=== PATIENT | male | born 1965 | race Caucasian/White ===

== ENCOUNTER 2022-06-16 11:00 | Inpatient (IN) | payer MEDICARE ==
[~2022-06-16] VITALS: Ht 185.5 cm; Wt 63.8 kg
[~2022-06-16 11:00] MED LIST: ACET325C7 PO; ACETAMINOPHEN 325 MG TABLET PO PRN; ALPRAZolam 0.25 MG (XANAX) TAB PO PRN; BISACODYL 10 MG SUPP (DULCOLAX) PR PRN; CALCIUM CARBONATE 500 MG (TUMS) TAB.CHEW PO PRN; DOCUSATE SODIUM 100 MG (COLACE) CAP PO PRN; FLEET ENEMA ADULT 1 EA BTL PR PRN; LACT1CAP39 PO; LACTULOSE SYRUP 10GM/15ML (ENULOSE) 30ML UDC PO PRN; LOPERAMIDE 2 MG (IMODIUM) TABLET PO PRN; MELATONIN 3 MG TABLET PO PRN; ONDANSETRON 4 MG (ZOFRAN) ORAL DISSOLVE TAB PO PRN; OXYB5TAB13 PO; TIZA-169 PO; [UNRECOGNIZED DRUG - CODE] IV; diphenhydrAMINE 25 MG TAB (BENADRYL) PO PRN; guaiFENesin/CODEINE (ROBITUSSIN AC) 10ML UDC PO PRN
[2022-06-16 11:30] VITALS: BP 110/60
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
[2022-06-16] MEDS ORDERED: ceFAZolin INJECTION 2,000 MG ONE (12:29)
[2022-06-16] MEDS ORDERED: NS (IVPB) 50 ML ONE (12:29)
--- NOTE | 2022-06-16 12:29 | ST Cognitive Linguistic Eval ---
Speech Evaluation-General Medical Diagnosis Debility Onset Date: Jun 07, 2022 Therapy Diagnosis Therapy Diagnosis: Intact (Baseline) Cognitive Skills Precautions Precautions: Fall, Pressure Ulcer Precautions/Isolations: Fall Prevention, Standard Precautions, Pressure Ulcer Referral Referring Physician: Dr. Brewster Reason for Referral: Evaluation/Treatment Medical History Reviewed History: Yes Social History Current Living Status: Significant Other Speech PLF-Current Status Prior Level of Function The patient denied prior or recent concerns with his speech, language, cognition, or swallowing. The patient stated "the infection" has resulted in decreased appetite, however, he does not experience s/s of suspected aspiration. Subjective The patient was seated upright in his wheelchair, awake and alert, upon entrance to his room by the clinician. The patient greeted the clinician appropriately and was agreeable to participation in the cognitive linguistic assessment. The patient's family member is present and remains for the evaluation. Language Eval: Auditory Comprehends Simple Yes/No Ques: Functional Indent/Objects Multiple [place]: Functional Follows 1-Step Commands: Functional Follows Complex Directions: Functional Follows General Conversations: Functional Language Eval: Verbal Language Completes Spontaneous Greeting: Functional Produces Auto, Serial Info: Functional Word Finding: Functional Requests Basic Needs: Functional States Basic Personal Info: Functional Expresses Complex Ideas: Functional Language Evaluation: Reading Follows Simple Written Direct: Functional Language Evaluation: Writing Writes to Simple Dictation: Functional Cognitive Patient Orientation The patient was independently oriented to self, location, month, day of the week, date, and year. Objective Cognitive Domain Attention: WNL Memory: WNL Problem Solving: Functional Executive Functions: WNL Visuospatial Skills: WNL Composite Severity Rating: WNL Clock Drawing Severity Rating: WNL Objective Formal/Standardized Tests [facility] Mental Status Exam (UMS) Results The patient displayed a result of +28/30 on the SLUMS correlating to a result of cognitive skills within normal limits. Oral Motor/Speech Production The patient does not display dysarthria or apraxia of speech. The patient is 100% intelligible in known and unknown contexts. Impression The patient demonstrated intact and baseline cognitive linguistic skills. Speech-Plan Treatment Plan Speech Therapy Treatment Plan: Discontinue ST Treatment Duration: Jun 16, 2022 Frequency: 1 time per week Estimated Hrs Per Day: .25 hour per day Rehab Potential: Good Pt/Family Agrees to Plan: Yes Safety Risks/Education Teaching Recipient: Patient, Family Teaching Methods: Discussion Response to Teaching: Verbalize Understanding Education Topics Provided: Results, Recommendations, Plan of Care Time Speech Therapy Time In: 12:10 Speech Therapy Time Out: 12:30 DATE: Jun 16, 2022 Total Billed Time: 20 Billed Treatment Time 1, ARIC RICKETTS [facility] Jun 16, 2022 12:29
[2022-06-16] MEDS ORDERED: NON-FORMULARY MEDICATION 1 EA EA (Acetaminophen (Tylenol) 650 MG) PO PRN (12:30)
[2022-06-16] MEDS ORDERED: CEFAZOLIN SODIUM IV SCH (12:30)
[2022-06-16] MEDS ORDERED: NON-FORMULARY MEDICATION 1 EA EA (Tizanidine HCl 2 MG) PO PRN (12:30)
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
[2022-06-16] MEDS ORDERED: ACETAMINOPHEN 325 MG TABLET PO PRN (13:00)
[2022-06-16] MEDS: OXYBUTYNIN (DITROPAN) 5 MG TAB PO SCH ×3 (13:41→21:52)
[2022-06-16] MEDS: DOCUSATE SODIUM 100 MG (COLACE) CAP PO SCH ×2 (13:41→21:57)
--- NOTE | 2022-06-16 14:01 | Physical Therapy Daily Note ---
PT Daily Note-Current Subjective Patient in pre tx, agrees to PT, has no complaints of pain at rest. Will be co-treating with OT due to poor patient mobility, strength, endurance, severe debility, coordinate UE and LE during activity, safety and reduce risk of falls and to shower. Pain Section J - Health Conditions 1. Rarely or not at all 2. Occasionally 3. Frequently 4. Almost constantly 8. Unable to answer Pain Effect on Sleep: 1 Pain Interference with Therapy: 1 Pain Interference w/Day-to-Day: 1 Appearance Patient in at sink post tx, has access to nurse call. Mental Status Patient Orientation: Normal For Age Attachments: [place] Catheter Transfers SCALE: Activities may be completed with or without assistive devices. 6-Avzaenapiu-kdlifry completes the activity by him/herself with no assistance from a helper. 5-Set-up or Clean-up Assistance-helper sets up or cleans up; patient completes activity. [place] assists only prior to or following the activity. 4-Supervision or Touching Assistance-helper provides verbal cues and/or touching/steadying and/or contact guard assistance as patient completes activity. Assistance may be provided throughout the activity or intermittently. 3-Partial/Moderate Assistance-helper does LESS THAN HALF the effort. [place] lifts, holds or supports trunk or limbs, but provides less than half the effort. 2-Substantial/Maximal Assistance-helper does MORE THAN HALF the effort. [place] lifts or holds trunk or limbs and provides more than half the effort. 7-Ukywucypb-dmnfkw does ALL the effort. Patient does none of the effort to complete the activity. Or, the assistance of 2 or more helpers is required for the patient to complete the activity. If activity was not attempted, code reason: 7-Patient Refused. 9-Not Applicable-not attempted and the patient did not perform the activity before the current illness, exacerbation or injury. 10-Not Attempted due to Environmental Limitations-(lack of equipment, weather restraints, etc.). 88-Not Attempted due to Medical Conditions or Safety Concerns. Sit to Stand (QC): 2 Chair/Cxr-re-Bxfzq Xfer(QC): 2 Toilet Transfer (QC): 2 Patient wheels to restroom, practice transfer to toilet with max assist and back to , then stand to lower and take off pants and transfer to shower bench (max assist), patient is able to slide off his underwear. Patient showers and dries off, transfers back to with max assist, partially put on underwear and pants and then stand with max assist and pants are pulled up. Treatments PT performed transfers, standing, positioning and safety during bathing and dressing, OT performed bathing, dressing, UE positioning and safety during activity. Assessment Current Status: Fair Progress improved arm strength, patient was able to perform a good chair pushup to adjust in seat PT Seo Team Lead Goals Skilled Nursing Goals PT Skilled Nursing Goals Time Frame: Jun 30, 2022 Roll Left & Right (QC): 6 Sit to Lying (QC): 6 Lying-Sitting on Side/Bed(QC): 6 Sit to Stand (QC): 4 (CGA) Chair/Gqy-lg-Cgozo Xfer(QC): 4 (CGA) Toilet Transfer (QC): 4 (CGA) Car Transfer (QC): 4 (CGA) Does the Patient Walk: No and Walking Goal NOT indicated Walk 10 feet (QC): 9 Walk 50ft with 2 Turns (QC): 9 Walk 150 ft (QC): 9 Walking 10ft on Uneven Surface: 9 1 Step (curb) (QC): 9 4 Steps (QC): 9 12 Steps (QC): 9 Picking up an Object (QC): 9 Wheel 50 feet with 2 turns (QC: 6 Wheel 150 feet: 6 PT Plan Problem List Problem List: Activity Tolerance, Functional Strength, Safety, Balance, Gait, Transfer, Bed Mobility, ROM Treatment/Plan Treatment Plan: Continue Plan of Care Treatment Plan: Bed Mobility, Education, Functional Activity Lizeth, Functional Strength, Group Therapy, Safety, Therapeutic Exercise, Transfers Treatment Duration: Jun 30, 2022 Frequency: At least 5 of 7 days/Wk (IRF) Estimated Hrs Per Day: 1.5 hours per day Patient and/or Family Agrees t: Yes Safety Risks/Education Patient Education: Transfer Techniques, Correct Positioning, Safety Issues Teaching Recipient: Patient Teaching Methods: Demonstration, Discussion Response to Teaching: Reinforcement Needed Time Time In: 1300 Time Out: 1400 DATE: Jun 16, 2022 Total Billed Treatment Time: 60 Total Billed Treatment 1 visit FA 60' EDGAR REYNOLDS PT Jun 16, 2022 14:01
--- NOTE | 2022-06-16 14:09 | Occupational Ther Daily Note ---
OT Current Status-Daily Note Subjective Pt alert, sitting in w/c. Family member present. Pt agrees to therapy. No c/o pain. OT/PT cotreat ([id number]), skills of 2 clinicians required due to poor patient mobility, strength, endurance, severe debility, coordinate UE and LE during activity, safety and reduce risk of falls and to shower. PT focusing on transfers, standing and dynamic balance while OT focusing on ADLs, functional mobility and dynamic balance. Mental Status/Objective Patient Orientation: Person, Place, Time, Situation Attachments: IV ADL-Treatment Pt agrees to shower. PT assists pt with toilet transfer/shower transfer and [place] assist to manage w/c for safety. Pt is able to complete w/c pushups and assist with modified sliding transfer though for safety assist needed until pt increases strength and activity tolerance. Sitting 100% of the time, pt able to complete shower using shower bench, grabbar and hand held shower set. Pt uses figure 4 method to don/doff lower body clothing and footwear. Pt doffed suresh thing by self and threaded underwear over feet though fatigued and assist given to thread pants over feet then PT stood pt and URBINA hiked pt's lower body clothing over hips. Assist to don footwear due to fatigue, pt doffed by self. Pt independent with oral care. Set up with eating. Pt has bowel routine every other day, will be completing at night due to length of time it takes to complete, over 60 min. After session, pt sitting at sink to shave in w/c. Nrsg aware of position. Call light available. All needs met. Therapy Code Descriptions/Definitions Functional Williams Measure: 0=Not Assessed/NA 4=Minimal Assistance 1=Total Assistance 5=Supervision or Setup 2=Maximal Assistance 6=Modified [place] 3=Moderate Assistance 7=Complete IndependenceSCALE: Activities may be completed with or without assistive devices. 8-Tcjcejtydf-grjyfit completes the activity by him/herself with no assistance from a helper. 5-Set-up or Clean-up Assistance-helper sets up or cleans up; patient completes activity. [place] assists only prior to or following the activity. 4-Supervision or Touching Assistance-helper provides verbal cues and/or touching/steadying and/or contact guard assistance as patient completes activity. Assistance may be provided throughout the activity or intermittently. 3-Partial/Moderate Assistance-helper does LESS THAN HALF the effort. [place] lifts, holds or supports trunk or limbs, but provides less than half the effort. 2-Substantial/Maximal Assistance-helper does MORE THAN HALF the effort. [place] lifts or holds trunk or limbs and provides more than half the effort. 0-Adickfpjw-wvqmtc does ALL the effort. Patient does none of the effort to complete the activity. Or, the assistance of 2 or more helpers is required for the patient to complete the activity. If activity was not attempted, code reason: 7-Patient Refused. 9-Not Applicable-not attempted and the patient did not perform the activity before the current illness, exacerbation or injury. 10-Not Attempted due to Environmental Limitations-(lack of equipment, weather restraints, etc.). 88-Not Attempted due to Medical Conditions or Safety Concerns. Eating (QC): 5 Oral Hygiene (QC): 6 Shower/Bathe Self (QC): 5 Upper Body Dressing (QC): 5 Lower Body Dressing (QC): 1 On/Off Footwear: 3 Toilet Transfer (QC): 1 OT Seed Cleaner Goals Shelter Goals Time Frame: Jul 10, 2022 Acute change in mental status: 0 Inattention: 0 Disorganized thinkin Altered level of consciousness: 0 Eating (QC): 6 Oral Hygiene (QC): 6 Toileting Hygiene (QC): 6 Shower/Bathe Self (QC): 6 Upper Body Dressing (QC): 6 Lower Body Dressing (QC): 6 On/Off Footwear (QC): 6 Additional Goals: 1-Demonstrate ADL Tasks, 2-Verbalize Understanding, 3- ImproveStrength/Lizeth 1=Demonstrate adherence to instructed precautions during ADL tasks. 2=Patient will verbalize/demonstrate understanding of assistive de vices/modifications for ADL. 3=Patient will improve strength/tolerance for activity to enable patient to perform ADL's. OT Education/Plan Problem List/Assessment Assessment: Decreased Activ Tolerance, Decreased Safety Aware, Decreased UE Strength, Impaired Coordination, Impaired Funct Balance, Impaired Self-Care Skills Discharge Recommendations Plan/Recommendations: Continue POC Treatment Plan/Plan of Care Patient would benefit from OT for education, treatment and training to promote independence in ADL's, mobility, safety and/or upper extremity function for ADL's. Plan of Care: ADL Retraining, Functional Mobility, Group Exercise/Act as Ind, UE Funct Exercise/Act Treatment Duration: Jul 10, 2022 Frequency: At least 5 of 7 days/Wk (IRF) Estimated Hrs Per Day: 1.5 hours per day Agreement: Yes Rehab Potential: Fair Time Start Time: 13:00 Stop Time: 14:00 DATE: Jun 16, 2022 Total Time Billed (hr/min): 60 Billed Treatment Time 1 visit-ADL 4 (60 min) MACKENZIE DOMINGUEZ Jun 16, 2022 14:09
--- NOTE | 2022-06-16 17:07 | Diagnostic Imaging Report ---
CLINICAL INDICATION: Evaluate PICC line placement. EXAM: Portable chest x-ray, upright view. COMPARISON: None. FINDINGS: A left PICC line is seen with the distal portion overlying the cavoatrial junction region. Lungs/pleura: Lungs are clear. There is no pneumothorax. There is no pleural effusion. Mediastinum: Unremarkable. Pulmonary vasculature: Unremarkable. Heart: Unremarkable. Bones/extrathoracic soft tissue: There are small degenerative spurs involving the thoracic spine. There is a compression deformity of the T7 and T9 vertebrae which is of unknown age.. IMPRESSION: 1: Left sided PICC line seen in position, as described above. 2: There is no radiographic evidence of an acute cardiopulmonary process. 3: There are compression deformities involving the T7 and T9 vertebrae of unknown age. Dictated by: Dictated on workstation # [id number]
[2022-06-16 19:35] VITALS: BP 113/62
[2022-06-16] MEDS ORDERED: NON-FORMULARY MEDICATION 1 EA EA (Lactobacillus Rhamnosus GG (Culturelle) 1 EACH) PO SCH (21:00)
[2022-06-16] MEDS: ceFAZolin INJECTION 2,000 MG in NS (IVPB) 50 ML IV SCH (21:51)
[2022-06-16] MEDS: LACTOBACILLUS ACIDOPHILUS (PROBIOTIC) CAPSULE PO SCH (21:52)
[2022-06-16] MEDS: SENNA W/DOCUSATE (SENOKOT S) TABLET PO SCH (21:57)
[2022-06-16] MEDS: polyethylene glycoL POWDER 17 GM (MIRALAX) PACK PO SCH (21:57)
[2022-06-17] MEDS: ceFAZolin INJECTION 2,000 MG in NS (IVPB) 50 ML IV SCH ×3 (06:00→21:52)
[2022-06-17 06:17] LABS: BASOPHILS # (AUTO) 0.1 10^3/uL (0.0-0.1); BASOPHILS % (AUTO) 1 % (0-10); EOSINOPHILS # (AUTO) 0.3 10^3/uL (0.0-0.3); MEAN CORPUSCULAR HGB CONC 33 g/dL (32-36)
[2022-06-17 06:20] LABS: EOSINOPHILS % (AUTO) 4 % (0-10); HEMATOCRIT 32 % (40-54); HEMOGLOBIN 10.5 g/dL (13.3-17.7); LYMPHOCYTES # (AUTO) 2.2 10^3/uL (1.0-4.0); LYMPHOCYTES % (AUTO) 37 % (12-44); MEAN CORPUSCULAR HEMOGLOBIN 28 pg (25-34); MEAN CORPUSCULAR VOLUME 84 fL (80-99); MEAN PLATELET VOLUME 9.8 fL (9.0-12.2); MONOCYTES # (AUTO) 0.5 10^3/uL (0.0-1.0); MONOCYTES % (AUTO) 9 % (0-12); NEUTROPHILS # (AUTO) 2.8 10^3/uL (1.8-7.8); NEUTROPHILS % (AUTO) 49 % (42-75); PLATELET COUNT 131 10^3/uL (130-400); WHITE BLOOD COUNT 5.8 10^3/uL (4.3-11.0)
[2022-06-17 06:51] LABS: ALBUMIN 3.2 GM/DL (3.2-4.5); BILIRUBIN,TOTAL 0.5 MG/DL (0.1-1.0); CALCIUM 8.7 MG/DL (8.5-10.1); CREATININE SERUM 0.68 MG/DL (0.60-1.30); POTASSIUM 4.2 MMOL/L (3.6-5.0); TOTAL PROTEIN 6.2 GM/DL (6.4-8.2)
[2022-06-17 07:46] VITALS: BP 138/78
[2022-06-17] MEDS: polyethylene glycoL POWDER 17 GM (MIRALAX) PACK PO SCH ×2 (08:25→21:00)
[2022-06-17] MEDS: LACTOBACILLUS ACIDOPHILUS (PROBIOTIC) CAPSULE PO SCH ×2 (08:25→21:52)
[2022-06-17] MEDS: DOCUSATE SODIUM 100 MG (COLACE) CAP PO SCH ×2 (08:25→21:00)
[2022-06-17] MEDS: OXYBUTYNIN (DITROPAN) 5 MG TAB PO SCH ×3 (08:26→21:52)
[2022-06-17] MEDS: SENNA W/DOCUSATE (SENOKOT S) TABLET PO SCH ×2 (08:26→21:00)
--- NOTE | 2022-06-17 08:29 | Occupational Ther Daily Note ---
OT Current Status-Daily Note Subjective Alert, lying in bed. Pt agrees to therapy. No c/o pain at this time. Mental Status/Objective Patient Orientation: Person, Place, Time, Situation ADL-Treatment Supine to EOB independent. Sitting EOB independent. Mod A for modified SPT from EOB to w/c. Assist to thread catheter and feet into lower body clothing then while pt completed chair pushup assist given to hike pants over hips. Pt completed oral care and grooming sitting at sink independently. Therapy Code Descriptions/Definitions Functional Cross Measure: 0=Not Assessed/NA 4=Minimal Assistance 1=Total Assistance 5=Supervision or Setup 2=Maximal Assistance 6=Modified [place] 3=Moderate Assistance 7=Complete IndependenceSCALE: Activities may be completed with or without assistive devices. 1-Xjnprtdpxc-rrcnvcm completes the activity by him/herself with no assistance from a helper. 5-Set-up or Clean-up Assistance-helper sets up or cleans up; patient completes activity. [place] assists only prior to or following the activity. 4-Supervision or Touching Assistance-helper provides verbal cues and/or touching/steadying and/or contact guard assistance as patient completes activity. Assistance may be provided throughout the activity or intermittently. 3-Partial/Moderate Assistance-helper does LESS THAN HALF the effort. [place] lifts, holds or supports trunk or limbs, but provides less than half the effort. 2-Substantial/Maximal Assistance-helper does MORE THAN HALF the effort. [place] lifts or holds trunk or limbs and provides more than half the effort. 4-Utbenohgw-cepghg does ALL the effort. Patient does none of the effort to complete the activity. Or, the assistance of 2 or more helpers is required for the patient to complete the activity. If activity was not attempted, code reason: 7-Patient Refused. 9-Not Applicable-not attempted and the patient did not perform the activity before the current illness, exacerbation or injury. 10-Not Attempted due to Environmental Limitations-(lack of equipment, weather restraints, etc.). 88-Not Attempted due to Medical Conditions or Safety Concerns. Eating (QC): 5 Oral Hygiene (QC): 6 Lower Body Dressing (QC): 2 Other Treatment Pt propels w/c independently. Arm bike completed for 8 min with lengthy recovery breaks throughout due to increased dizziness, no resistance. Pt completed dowel kathy exercises against gravity 2 exercises, biceps 30 reps, triceps 25 reps. Pt fatigued at end of treatment. After session, pt sitting in w/c in room with call light/phone in reach. All needs met. OT Advisor To Command In Combat Goals Advisor To Command In Combat Goals Time Frame: Jul 10, 2022 Acute change in mental status: 0 Inattention: 0 Disorganized thinkin Altered level of consciousness: 0 Eating (QC): 6 Oral Hygiene (QC): 6 Toileting Hygiene (QC): 6 Shower/Bathe Self (QC): 6 Upper Body Dressing (QC): 6 Lower Body Dressing (QC): 6 On/Off Footwear (QC): 6 Additional Goals: 1-Demonstrate ADL Tasks, 2-Verbalize Understanding, 3-Improv eStrength/Lizeth 1=Demonstrate adherence to instructed precautions during ADL tasks. 2=Patient will verbalize/demonstrate understanding of assistive devices/modifications for ADL. 3=Patient will improve strength/tolerance for activity to enable patient to p erform ADL's. OT Education/Plan Problem List/Assessment Assessment: Decreased Activ Tolerance, Decreased UE Strength, Impaired Self- Care Skills, Restricted Funct UE ROM Discharge Recommendations Plan/Recommendations: Continue POC Treatment Plan/Plan of Care Patient would benefit from OT for education, treatment and training to promote independence in ADL's, mobility, safety and/or upper extremity function for ADL's. Plan of Care: ADL Retraining, Functional Mobility, Group Exercise/Act as Ind, UE Funct Exercise/Act Treatment Duration: Jul 10, 2022 Frequency: At least 5 of 7 days/Wk (IRF) Estimated Hrs Per Day: 1.5 hours per day Agreement: Yes Rehab Potential: Fair Time Start Time: 07:30 Stop Time: 08:30 DATE: Jun 17, 2022 Total Time Billed (hr/min): 60 Billed Treatment Time 1 visit-ADL 2 (30 min) EX 2 (30 min) MACKENZIE DOMINGUEZ Jun 17, 2022 08:29
[2022-06-17] MEDS ORDERED: PATIENT MAY USE OWN MED,SINGLE MED PO SCH (09:15)
--- NOTE | 2022-06-17 09:28 | PM&R Progress Note ---
Subjective HPI/CC On Admission Date Seen by Provider: Jun 17, 2022 Time Seen by Provider: 09:15 Subjective/Events-last exam 06/17/2022: Doing well Improved in therapy already Likely short course here in ARU No pain reported BM regimen ordered as he does at home In out caths will be initiated after lambert ANGEL LUIS Review of Systems General: Fatigue, Malaise Objective Exam Vital Signs Vital Signs Date Time Temp Pulse Resp B/P (MAP) Pulse Ox O2 Delivery O2 Flow Rate FiO2 06/17/22 21:30 97 Room Air 06/17/22 20:25 36.9 101 18 135/76 (95) Capillary Refill : General Appearance: No Apparent Distress, WD/WN, Chronically ill, Thin HEENT: PERRL/EOMI, Normal ENT Inspection, Pharynx Normal Neck: Full Range of Motion, Normal Inspection, Non Tender, Supple, Carotid Bruit Respiratory: Chest Non Tender, Lungs Clear, Normal Breath Sounds, No Accessory Muscle Use, No Respiratory Distress Cardiovascular: Regular Rate, Rhythm, No Edema, No Gallop, No JVD, No Murmur, Normal Peripheral Pulses Gastrointestinal: Normal Bowel Sounds, No Organomegaly, No Pulsatile Mass, Non Tender, Soft Back: Normal Inspection, No CVA Tenderness, No Vertebral Tenderness Extremity: Normal Capillary Refill, Normal Inspection, Normal Range of Motion, Non Tender, No Calf Tenderness, No Pedal Edema Neurologic/Psychiatric: Alert, Oriented x3, Normal Mood/Affect, clipper machine II-XII Norm as Tested, Depressed Affect, Motor Weakness (bilateral lower extremities) Skin: Normal Color, Warm/Dry Lymphatic: No Adenopathy Results/Procedures Lab Laboratory Tests 06/17/22 06:00 Patient resulted labs reviewed. FIM Transfers Therapy Code Descriptions/Definitions Functional [place] Measure: 0=Not Assessed/NA 4=Minimal Assistance 1=Total Assistance 5=Supervision or Setup 2=Maximal Assistance 6=Modified [place] 3=Moderate Assistance 7=Complete IndependenceSCALE: Activities may be completed with or without assistive devices. 7-Tgkhveaoql-lccyfqb completes the activity by him/herself with no assistance from a helper. 5-Set-up or Clean-up Assistance-helper sets up or cleans up; patient completes activity. [place] assists only prior to or following the activity. 4-Supervision or Touching Assistance-helper provides verbal cues and/or touching/steadying and/or contact guard assistance as patient completes activity. Assistance may be provided throughout the activity or intermittently. 3-Partial/Moderate Assistance-helper does LESS THAN HALF the effort. [place] lifts, holds or supports trunk or limbs, but provides less than half the effort. 2-Substantial/Maximal Assistance-helper does MORE THAN HALF the effort. [place] lifts or holds trunk or limbs and provides more than half the effort. 5-Tsbyigthp-dbtsfl does ALL the effort. Patient does none of the effort to complete the activity. Or, the assistance of 2 or more helpers is required for the patient to complete the activity. If activity was not attempted, code reason: 7-Patient Refused. 9-Not Applicable-not attempted and the patient did not perform the activity before the current illness, exacerbation or injury. 10-Not Attempted due to Environmental Limitations-(lack of equipment, weather restraints, etc.). 88-Not Attempted due to Medical Conditions or Safety Concerns. Roll Left to Right (QC): 4 Sit to Lying (QC): 3 Sit to Stand (QC): 2 Chair/Don-da-Ofsxz Xfer(QC): 2 Car Transfer (QC): 2 Gait Training Does the Patient Walk?: No and Walking Goal NOT indicated Walk 10 feet (QC): 9 Walk 50 ft with 2 Turns(QC): 9 Walk 150 ft (QC): 9 Walking 10ft/uneven surface-QC: 9 Wheelchair Training Does the Pt Use a Wheelchair?: Yes Distance: 200'x2 Wheel 50 ft with 2 turns (QC): 6 Wheel 150 ft (QC): 6 Type of Wheelchair: Manual Stair Training 1 Step (curb) (QC): 9 4 Steps (QC): 9 12 Steps (QC): 9 Balance Picking up an Object (QC): 9 ADL-Treatment Eating (QC): 5 Oral Hygiene (QC): 6 Shower/Bathe Self (QC): 5 Upper Body Dressing (QC): 5 Lower Body Dressing (QC): 1 (due to fatigue) On/Off Footwear (QC): 3 Toileting Hygiene (QC): 2 Toilet Transfer (QC): 1 Assessment/Plan Assessment and Plan Assess & Plan/Chief Complaint Assessment: Debility from renal cell carcinoma chemotherapy treatment Acute endocarditis placed on Cefazolin1 grams IV Q8 hours for 6 weeks Remote hx of C3 spinal cord injury CKD Anemia Weight loss h/o decubitus ulcers Neurogenic bladder performs in out caths Plan: Pain control In/out caths Lab monitoring Cardiology consultation Lab monitoring 06/17/2022: Monitor closely Fall risk (1) Debility (2) Endocarditis (3) Renal cell carcinoma (4) Weight loss (5) C3 spinal cord injury MELI THOMAS DO Jun 17, 2022 09:28
--- NOTE | 2022-06-17 09:34 | Individualized Plan of Care ---
Individualized Plan of Care Rehab Nursing IPOC Order Admission Date Jun 16, 2022 at 11:00 Current Orders Orders Admission Order(Inpt,Obs,Sdc) (06/16/22 05:37) Vital Signs: Per Unit Policy ( 16 (06/16/22 05:37) Jesus Hopkins (06/16/22 05:37) Sequential Compression Device (06/16/22 05:37) Deputy Of Counter Intelligence-Inpt Rehab Con (06/16/22 05:37) Rehab Nursing Orders-Ipoc (06/16/22 05:37) Physical Therapy Rehab Orders (06/16/22 05:37) Occupational Therapy Rehab Ord (06/16/22 05:37) Speech Therapy Rehab Orders (06/16/22 05:37) Cbc With Automated Diff (06/17/22 06:00) Comprehensive Metabolic Panel (06/17/22 06:00) Precautions (Aru) (06/16/22 05:37) Weekly Weight WEEK (06/16/22 05:37) Rehab-Intensity Of Therapy (06/16/22 05:37) Initiate Admission Nursing Pro .admission (06/16/22 05:37) Alprazolam Tablet (Xanax Tablet) (06/16/22 05:45) Calcium Carbonate Chew Tablet (Antacid C (06/16/22 05:45) Diphenhydramine Tablet (Benadryl Tablet) (06/16/22 05:45) Docusate Sodium Capsule (Colace Capsule) (06/16/22 09:00) Docusate Sodium Capsule (Colace Capsule) (06/16/22 05:45) Bisacodyl Suppository (Dulcolax Supposit (06/16/22 05:45) Lactulose Oral Solution (Enulose Oral So (06/16/22 05:45) Na Phos/Na Biphos Enema (Fleet Enema Alexy (06/16/22 05:45) Guaifenesin/Codeine Syrup (Robitussin Ac (06/16/22 05:45) Loperamide Tablet (Imodium Tablet) (06/16/22 05:45) Melatonin Tablet (Melatonin Tablet) (06/16/22 05:45) Polyethylene Glycol Powder Pkt (Miralax (06/16/22 21:00) Ondansetron Oral Dissolve Tab (Zofran (06/16/22 05:45) Senna S Tablet (Senokot S Tablet) (06/16/22 21:00) Acetaminophen Tablet/Caplet (Tylenol T (06/16/22 05:45) General/Regular (06/16/22 Lunch) Admission Arrival Bed Request (06/16/22 11:55) Oxybutynin Tablet (Ditropan Tablet) (06/16/22 13:00) (Nf) Acetaminophen (Tylenol) (06/16/22 12:30) (Nf) Cefazolin Sod (Cefazolin Sodium) (06/16/22 12:30) (Nf) Lactobacillus Rhamnosus Gg (Culture (06/16/22 21:00) (Nf) Tizanidine Hcl (06/16/22 12:30) Patient Visit (06/16/22 ) Speech Sound Lang Comp (06/16/22 ) Treat. Speech/Lang/Voice (06/16/22 ) Ns (Ivpb) (Sodium Chloride 0.9% Ivpb Bag (06/16/22 12:29) Cefazolin Injection (Ancef Injection) (06/16/22 12:29) Tizanidine Tablet (Zanaflex Tablet) (06/16/22 13:00) Lactobacillus Acidophilus Cap (Acidophil (06/16/22 21:00) Acetaminophen Tablet/Caplet (Tylenol T (06/16/22 13:00) Cefazolin Injection (Ancef Injection) (06/16/22 22:00) Follow-Up Appointment (06/16/22 15:16) Nursing Communication (Order) (06/16/22 15:23) Chest 1 View, Ap/Pa Only (06/16/22 16:48) Consult Cardiology (06/17/22 06:48) Straight Cath (Urinary) (06/17/22 06:49) Patient Visit (06/16/22 ) Pt Eval Moderate Complexity (06/16/22 ) Functional Activities, Ea 15 (06/16/22 ) Patient May Use Own Med,Single (Patient (06/17/22 09:15) Enoxaparin Injection (Lovenox Injection) (06/17/22 09:30) Patient Visit (06/17/22 ) Wheelchair Mgmt/Propulsn 15min (06/17/22 ) Functional Activities, Ea 15 (06/17/22 ) Exercise Therap, Ea 15 Min (06/17/22 ) Rehab Nursing Orders: Ongoing Assess. of Function Status, Bladder Management, Bladder Scan, Bladder Training, Bowel Management, Bowel Training, Disease Management & Educaiton, DVT Prophylaxis, Fall Prevention, Fluid/Electrolyte/Nutrition Mgmt, Infection Prevention, Medication Management & Education, Management of Risks & Complications, Management of Skin Intergrity, Nutrition Management, Pain Management, Patient/Family Support, Safety Management Intensity of Therapy to be met Patient to be seen: Min.3h per day/5 of 7d PT IPOC Problem List: Activity Tolerance, Functional Strength, Safety, Balance, Gait, Transfer, Bed Mobility, ROM Treatment Plan: Continue Plan of Care Bed Mobility, Education, Functional Activity Lizeth, Functional Strength, Group Therapy, Safety, Therapeutic Exercise, Transfers Treatment Duration: Jun 30, 2022 Frequency: At least 5 of 7 days/Wk (IRF) Estimated Hrs Per Day: 1.5 hours per day OT IPOC Problems: Decreased Activ Tolerance, Decreased Safety Aware, Decreased UE Strength, Impaired Coordination, Impaired Funct Balance, Impaired Self-Care Skills OT Treatment, Training and Edu: Yes Plan of Care: ADL Retraining, Functional Mobility, Group Exercise/Act as Ind, UE Funct Exercise/Act Treatment Duration: Jul 10, 2022 Frequency: At least 5 of 7 days/Wk (IRF) Estimated Hrs Per Day: 1.[address] IPOC Speech Therapy Treatment Plan: Discontinue ST Treatment Duration: Jun 16, 2022 Frequency: 1 time per week Estimated Hrs Per Day: .25 hour per day Deputy Of Counter Intelligence/Case Mgmt Deputy Of Counter Intelligence/Case Managemen: Discharge Planning Dietitian/Typesetter Perforator Operator Dietitian/Typesetter Perforator Operator to monitor nutritional status and make changes and/or recommendations as needed and work with speech pathology on dietary upgrades as the occur. Physician IPOC Medical Issues being managed closely and that require the 24 hour availability of a physician: Recent diagnosis of endocarditis along with chronic paraplegia will require close monitoring while maintaining IV abx in order to prevent decompensation Medical Issues: Bowel/Bladder Function, DVT Prophylaxis, Falls Precautions, Fluid/Electrolyte/Nutrition Balance, Infection Protection, Pain Management Brief Synthesis of Preadmission Screen, Post-Admission Evaluation, and Therapy Evaluations: PT OT will focus on regaining strength with use of AD in order to return home to live independently while managing his chronic paralysis in wheelchair bound status Medical Prognosis: Good Anticipated Length of Stay: 7 days MELI THOMAS DO Jun 17, 2022 09:34
--- NOTE | 2022-06-17 09:48 | Physical Therapy Daily Note ---
PT Daily Note-Current Subjective Pt. agrees to Rx. States he notes progress but wants to be absolutely indep with TRFs etc. "I could walk with a FWW before all this started, like April or so" Pt. denies pain, shares some medical history as well as his personal living environment etc. "You have to let me try this the way I have always done this, if I cant then we'll modify" Pt. c/o he feels he may be getting skin break down on elbow, nursing alerted and particular dressing was applied bilat elbows to prevent shearing Pain Location: No Pain Reported Section J - Health Conditions 1. Rarely or not at all 2. Occasionally 3. Frequently 4. Almost constantly 8. Unable to answer Pain Effect on Sleep: 1 Pain Interference with Therapy: 1 Pain Interference w/Day-to-Day: 1 Mental Status Patient Orientation: Normal For Age Attachments: Camara Catheter Transfers SCALE: Activities may be completed with or without assistive devices. 3-Bkbjgfqzzz-yazouaa completes the activity by him/herself with no assistance from a helper. 5-Set-up or Clean-up Assistance-helper sets up or cleans up; patient completes activity. [place] assists only prior to or following the activity. 4-Supervision or Touching Assistance-helper provides verbal cues and/or touching/steadying and/or contact guard assistance as patient completes activity. Assistance may be provided throughout the activity or intermittently. 3-Partial/Moderate Assistance-helper does LESS THAN HALF the effort. [place] lifts, holds or supports trunk or limbs, but provides less than half the effort. 2-Substantial/Maximal Assistance-helper does MORE THAN HALF the effort. [place] lifts or holds trunk or limbs and provides more than half the effort. 6-Vpmcghawa-hocqvb does ALL the effort. Patient does none of the effort to complete the activity. Or, the assistance of 2 or more helpers is required for the patient to complete the activity. If activity was not attempted, code reason: 7-Patient Refused. 9-Not Applicable-not attempted and the patient did not perform the activity before the current illness, exacerbation or injury. 10-Not Attempted due to Environmental Limitations-(lack of equipment, weather restraints, etc.). 88-Not Attempted due to Medical Conditions or Safety Concerns. Roll Left & Right (QC): 6 Sit to Lying (QC): 6 Lying to Sitting/Side of Bed(Q: 6 Chair/Zfp-jx-Gdafz Xfer(QC): 3 TRFd w/c to mat Rx table in gym ( firm cushioned surface) SBA, but mat table to w/c one brake came disengaged ( pt. states this is an ongoing issue with his chair) and pt. needed mod assist to get secured up on mat to start over, brakes was secured again and min assist was given, no sld brd, pt. using UEs for bot TRFs one toward his left onto bed and one toward his right back to w/c. Wheelchair Training Does the Pt Use a Wheelchair?: Yes Wheel 50 ft with 2 turns (QC): 6 Wheel 150 ft (QC): 6 Type of Wheelchair: Manual to ramp for trials on 70 ft ramp pt. demonstrating good control descending 70 ft x 2 and good strength and control ascending 70 ft x 3. ascending causing fatigue and temporary dyspnea , recovering well Exercises Supine Ex: Ankle pumps, Quad Set, Rolling, Glut sets, Heel Slides, Short Arc Quads, Scooting, Straight leg raise, Hip abd/add Supine Reps: 20 all ex assisted as needed, HC stretches bilat x 5 with 20 s hold, Treatments w/c mob, ramps, TRFs w/c to mat and back, LE ex and stretching Assessment Current Status: Good Progress conts dependent for TRFs PT Custodial Goals Sharples Machine Operator Goals PT Custodial Goals Time Frame: Jun 30, 2022 Roll Left & Right (QC): 6 Sit to Lying (QC): 6 Lying-Sitting on Side/Bed(QC): 6 Sit to Stand (QC): 4 (CGA) Chair/Wmr-rq-Brxce Xfer(QC): 4 (CGA) Toilet Transfer (QC): 4 (CGA) Car Transfer (QC): 4 (CGA) Does the Patient Walk: No and Walking Goal NOT indicated Walk 10 feet (QC): 9 Walk 50ft with 2 Turns (QC): 9 Walk 150 ft (QC): 9 Walking 10ft on Uneven Surface: 9 1 Step (curb) (QC): 9 4 Steps (QC): 9 12 Steps (QC): 9 Picking up an Object (QC): 9 Wheel 50 feet with 2 turns (QC: 6 Wheel 150 feet: 6 PT Plan Treatment/Plan Treatment Plan: Continue Plan of Care Treatment Plan: Bed Mobility, Education, Functional Activity Lizeth, Functional Strength, Group Therapy, Safety, Therapeutic Exercise, Transfers Treatment Duration: Jun 30, 2022 Frequency: At least 5 of 7 days/Wk (IRF) Estimated Hrs Per Day: 1.5 hours per day Patient and/or Family Agrees t: Yes Safety Risks/Education Patient Education: Transfer Techniques, Correct Positioning, W/C Management, Disease Process, Safety Issues Teaching Recipient: Patient Teaching Methods: Demonstration, Discussion Response to Teaching: Verbalize Understanding, Return Demonstration, Reinforcement Needed Time Time In: 845 Time Out: 945 DATE: Jun 17, 2022 Total Billed Treatment Time: 60 Total Billed Treatment 1,WC27m,FA20m,EX13m ROJAS COLES ORTHOTIC ASSISTANT Jun 17, 2022 09:48
[2022-06-17] MEDS: ENOXAPARIN 40 MG/0.4 ML (LOVENOX) SYR SC SCH (10:10)
--- NOTE | 2022-06-17 12:02 | Occupational Ther Daily Note ---
OT Current Status-Daily Note Subjective Pt alert, sitting in w/c. Pt agrees to therapy. C/o fatigue from previous therapy sessions. Mental Status/Objective Patient Orientation: Person, Place, Time, Situation Attachments: IV ADL-Treatment Therapy Code Descriptions/Definitions Functional [place] Measure: 0=Not Assessed/NA 4=Minimal Assistance 1=Total Assistance 5=Supervision or Setup 2=Maximal Assistance 6=Modified [place] 3=Moderate Assistance 7=Complete IndependenceSCALE: Activities may be completed with or without assistive devices. 7-Ttekimcibv-uokixsh completes the activity by him/herself with no assistance from a helper. 5-Set-up or Clean-up Assistance-helper sets up or cleans up; patient completes activity. [place] assists only prior to or following the activity. 4-Supervision or Touching Assistance-helper provides verbal cues and/or touching/steadying and/or contact guard assistance as patient completes activity. Assistance may be provided throughout the activity or intermittently. 3-Partial/Moderate Assistance-helper does LESS THAN HALF the effort. [place] lifts, holds or supports trunk or limbs, but provides less than half the effort. 2-Substantial/Maximal Assistance-helper does MORE THAN HALF the effort. [place] lifts or holds trunk or limbs and provides more than half the effort. 8-Cjtqfjrvr-sxqonw does ALL the effort. Patient does none of the effort to complete the activity. Or, the assistance of 2 or more helpers is required for the patient to complete the activity. If activity was not attempted, code reason: 7-Patient Refused. 9-Not Applicable-not attempted and the patient did not perform the activity before the current illness, exacerbation or injury. 10-Not Attempted due to Environmental Limitations-(lack of equipment, weather restraints, etc.). 88-Not Attempted due to Medical Conditions or Safety Concerns. Other Treatment Pt completed arm pulleys for 5 min with multiple rest breaks throughout. Pt then completed dowel kathy exercises, gravity eliminated, by push/pull on parallel bars while leaning forward to completed forward flexion to increase core and B UE strength. ROM arc completed with each hand 1x for shldr abd/add. After session, pt propelled w/c back to room with visitor. All needs met. OT Senior Care Goals Senior Care Goals Time Frame: Jul 10, 2022 Acute change in mental status: 0 Inattention: 0 Disorganized thinkin Altered level of consciousness: 0 Eating (QC): 6 Oral Hygiene (QC): 6 Toileting Hygiene (QC): 6 Shower/Bathe Self (QC): 6 Upper Body Dressing (QC): 6 Lower Body Dressing (QC): 6 On/Off Footwear (QC): 6 Additional Goals: 1-Demonstrate ADL Tasks, 2-Verbalize Understanding, 3- ImproveStrength/Lizeth 1=Demonstrate adherence to instructed precautions during ADL tasks. 2=Patient will verbalize/demonstrate understanding of assistive devices/modifications for ADL. 3=Patient will improve strength/tolerance for activity to enable patient to perform ADL's. OT Education/Plan Problem List/Assessment Assessment: Decreased Activ Tolerance, Decreased UE Strength Discharge Recommendations Plan/Recommendations: Continue POC Treatment Plan/Plan of Care Patient would benefit from OT for education, treatment and training to promote independence in ADL's, mobility, safety and/or upper extremity function for ADL's. Plan of Care: ADL Retraining, Functional Mobility, Group Exercise/Act as Ind, UE Funct Exercise/Act Treatment Duration: Jul 10, 2022 Frequency: At least 5 of 7 days/Wk (IRF) Estimated Hrs Per Day: 1.5 hours per day Agreement: Yes Rehab Potential: Fair Time Start Time: 11:30 Stop Time: 12:00 DATE: Jun 17, 2022 Total Time Billed (hr/min): 30 Billed Treatment Time 1 visit-EX 2 (30 min) MACKENZIE DOMINGUEZ Jun 17, 2022 12:02
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
--- NOTE | 2022-06-17 13:31 | Physical Therapy Daily Note ---
PT Daily Note-Current Subjective Pt. agrees to Rx. States he feels even stronger this afternoon than he did this morning. Pt. wants to cotton inspector the // bars and then hopes to have suppository for BM afterwards. Pain Location: No Pain Reported Section J - Health Conditions 1. Rarely or not at all 2. Occasionally 3. Frequently 4. Almost constantly 8. Unable to answer Pain Effect on Sleep: 1 Pain Interference with Therapy: 1 Pain Interference w/Day-to-Day: 1 Mental Status Patient Orientation: Normal For Age Attachments: Camara Catheter Transfers SCALE: Activities may be completed with or without assistive devices. 4-Bfusibaodh-brlprzj completes the activity by him/herself with no assistance from a helper. 5-Set-up or Clean-up Assistance-helper sets up or cleans up; patient completes activity. [place] assists only prior to or following the activity. 4-Supervision or Touching Assistance-helper provides verbal cues and/or touching/steadying and/or contact guard assistance as patient completes activity. Assistance may be provided throughout the activity or intermittently. 3-Partial/Moderate Assistance-helper does LESS THAN HALF the effort. [place] lif ts, holds or supports trunk or limbs, but provides less than half the effort. 2-Substantial/Maximal Assistance-helper does MORE THAN HALF the effort. [place] lifts or holds trunk or limbs and provides more than half the effort. 1-Xjvhdkyyg-ynhlqt does ALL the effort. Patient does none of the effort to complete the activity. Or, the assistance of 2 or more helpers is required for the patient to complete the activity. If activity was not attempted, code reason: 7-Patient Refused. 9-Not Applicable-not attempted and the patient did not perform the activity before the current illness, exacerbation or injury. 10-Not Attempted due to Environmental Limitations-(lack of equipment, weather restraints, etc.). 88-Not Attempted due to Medical Conditions or Safety Concerns. Sit to Stand (QC): 4 sit to stands at // bars x 3 with min to CGA and pt. using/pulling up using bars bilat. pt. has his own trusted routine of positioning is feet and LEs and weight shifting which was successful with CGA to slight min x 3 trials. pt stood approx 3 mins each trial. Pt. gives full effort Wheelchair Training Does the Pt Use a Wheelchair?: Yes Type of Wheelchair: Manual 175 ft x 2 indep, at rather high speed, pt. cued for safety pt. states "keep up if you can" Exercises Seated Therapy Exercises: Sit to stand Standing Reps: 4 Treatments w/c mob, sit to stands in // bars with greater indep and duration of 3-4 mins per stance Assessment Current Status: Good Progress progressing each treatment, increased TRF indep and strength PT Ring Conductor Goals Ring Conductor Goals PT Ring Conductor Goals Time Frame: Jun 30, 2022 Roll Left & Right (QC): 6 Sit to Lying (QC): 6 Lying-Sitting on Side/Bed(QC): 6 Sit to Stand (QC): 4 (CGA) Chair/Ppl-vg-Osmmj Xfer(QC): 4 (CGA) Toilet Transfer (QC): 4 (CGA) Car Transfer (QC): 4 (CGA) Does the Patient Walk: No and Walking Goal NOT indicated Walk 10 feet (QC): 9 Walk 50ft with 2 Turns (QC): 9 Walk 150 ft (QC): 9 Walking 10ft on Uneven Surface: 9 1 Step (curb) (QC): 9 4 Steps (QC): 9 12 Steps (QC): 9 Picking up an Object (QC): 9 Wheel 50 feet with 2 turns (QC: 6 Wheel 150 feet: 6 PT Plan Treatment/Plan Treatment Plan: Continue Plan of Care Treatment Plan: Bed Mobility, Education, Functional Activity Lizeth, Functional Strength, Group Therapy, Safety, Therapeutic Exercise, Transfers Treatment Duration: Jun 30, 2022 Frequency: At least 5 of 7 days/Wk (IRF) Estimated Hrs Per Day: 1.5 hours per day Patient and/or Family Agrees t: Yes Safety Risks/Education Patient Education: Transfer Techniques, Correct Positioning, W/C Management, Safety Issues Teaching Recipient: Patient Teaching Methods: Demonstration, Discussion Response to Teaching: Verbalize Understanding, Return Demonstration, Reinforcement Needed Time Time In: 1300 Time Out: 1330 DATE: Jun 17, 2022 Total Billed Treatment Time: 30 Total Billed Treatment 1,FA30m ROJAS COLES COOK SHIP Jun 17, 2022 13:30
[2022-06-17 20:25] VITALS: BP 135/76
[2022-06-18] MEDS: ceFAZolin INJECTION 2,000 MG in NS (IVPB) 50 ML IV SCH ×3 (05:54→21:04)
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
[2022-06-18 07:58] VITALS: BP 136/76
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
[2022-06-18] MEDS: ENOXAPARIN 40 MG/0.4 ML (LOVENOX) SYR SC SCH (08:19)
[2022-06-18] MEDS: OXYBUTYNIN (DITROPAN) 5 MG TAB PO SCH ×3 (08:19→20:57)
[2022-06-18] MEDS: polyethylene glycoL POWDER 17 GM (MIRALAX) PACK PO SCH ×2 (08:19→21:29)
[2022-06-18] MEDS: LACTOBACILLUS ACIDOPHILUS (PROBIOTIC) CAPSULE PO SCH ×2 (08:19→20:57)
[2022-06-18] MEDS: SENNA W/DOCUSATE (SENOKOT S) TABLET PO SCH ×2 (08:19→21:29)
[2022-06-18] MEDS: DOCUSATE SODIUM 100 MG (COLACE) CAP PO SCH ×2 (08:19→21:29)
--- NOTE | 2022-06-18 09:16 | Occupational Ther Daily Note ---
OT Current Status-Daily Note Subjective Pt alert, sitting in w/c. Pt agrees to therapy. No c/o pain. Mental Status/Objective Patient Orientation: Person, Place, Time, Situation Attachments: IV ADL-Treatment Pt agrees to shower. Min A for shower transfers. Using grabbars, shower bench and hand held shower pt able to complete shower by self, assist only to cover IV. Independent with upper body dressing. Independent with doffing lower body clothing. Pt dons R sock by self then assist with L sock. Assist to thread Camara through underwear then is able to don by self. Assist to don pants. Pt completed grooming/oral care prior to OT session. Therapy Code Descriptions/Definitions Functional [place] Measure: 0=Not Assessed/NA 4=Minimal Assistance 1=Total Assistance 5=Supervision or Setup 2=Maximal Assistance 6=Modified [place] 3=Moderate Assistance 7=Complete IndependenceSCALE: Activities may be completed with or without assistive devices. 3-Daenbtlyxd-kjnsofg completes the activity by him/herself with no assistance from a helper. 5-Set-up or Clean-up Assistance-helper sets up or cleans up; patient completes activity. [place] assists only prior to or following the activity. 4-Supervision or Touching Assistance-helper provides verbal cues and/or touching/steadying and/or contact guard assistance as patient completes activity. Assistance may be provided throughout the activity or intermittently. 3-Partial/Moderate Assistance-helper does LESS THAN HALF the effort. [place] lifts, holds or supports trunk or limbs, but provides less than half the effort. 2-Substantial/Maximal Assistance-helper does MORE THAN HALF the effort. [place] lifts or holds trunk or limbs and provides more than half the effort. 8-Rxxgcvzvd-kffomb does ALL the effort. Patient does none of the effort to complete the activity. Or, the assistance of 2 or more helpers is required for the patient to complete the activity. If activity was not attempted, code reason: 7-Patient Refused. 9-Not Applicable-not attempted and the patient did not perform the activity before the current illness, exacerbation or injury. 10-Not Attempted due to Environmental Limitations-(lack of equipment, weather restraints, etc.). 88-Not Attempted due to Medical Conditions or Safety Concerns. Shower/Bathe Self (QC): 5 Upper Body Dressing (QC): 6 Lower Body Dressing (QC): 3 On/Off Footwear: 3 Other Treatment Pt completed B UE strengthening with dowel kathy and resistance bands to increase upper body strength and activity tolerance for daily functional tasks. Pt has demonstrated improvement already with strength and activity tolerance from yesterday's therapy sessions. 3 sets 10 reps of all exercises with recovery breaks. After session, pt sitting in w/c in room with call light phone in reach. All needs met in room. BIMS CAM CAM Mental Status Change/Baseline: 0 Inattention: 0 Disorganized thinkin Altered level of consciousness: 0 OT Short Term Goals Short Term Goals Time Frame: Jun 18, 2022 OT [facility] Goals Dog Hair Clipper Goals Time Frame: Jul 10, 2022 Acute change in mental status: 0 Inattention: 0 Disorganized thinkin Altered level of consciousness: 0 Eating (QC): 6 (met) Oral Hygiene (QC): 6 (met) Toileting Hygiene (QC): 6 (met) Shower/Bathe Self (QC): 6 (met) Upper Body Dressing (QC): 6 (met) Lower Body Dressing (QC): 6 (met) On/Off Footwear (QC): 6 (met) Additional Goals: 1-Demonstrate ADL Tasks, 2-Verbalize Understanding, 3- ImproveStrength/Lizeth 1=Demonstrate adherence to instructed precautions during ADL tasks. 2=Patient will verbalize/demonstrate understanding of assistive devices/modifications for ADL. 3=Patient will improve strength/tolerance for activity to enable patient to perform ADL's. OT Education/Plan Problem List/Assessment Assessment: Decreased Activ Tolerance, Decreased UE Strength, Impaired Self- Care Skills Discharge Recommendations Plan/Recommendations: Continue POC Treatment Plan/Plan of Care Patient would benefit from OT for education, treatment and training to promote independence in ADL's, mobility, safety and/or upper extremity function for ADL's. Plan of Care: ADL Retraining, Functional Mobility, Group Exercise/Act as Ind, UE Funct Exercise/Act Treatment Duration: Jul 10, 2022 Frequency: At least 5 of 7 days/Wk (IRF) Estimated Hrs Per Day: 1.5 hours per day Agreement: Yes Rehab Potential: Fair Time Start Time: 09:00 Stop Time: 10:00 DATE: Jun 18, 2022 Total Time Billed (hr/min): 60 Billed Treatment Time 1 visit-ADL 4 (60 min) MACKENZIE DOMINGUEZ Jun 18, 2022 09:16
--- NOTE | 2022-06-18 10:59 | Physical Therapy Daily Note ---
PT Daily Note-Current Subjective Pt. agrees to Rx, feels he is making regular progress . His goal is to get to standing indep and make a TRF from there. Pt. was able to insert suppository for BM indep last night Pain Location: No Pain Reported Section J - Health Conditions 1. Rarely or not at all 2. Occasionally 3. Frequently 4. Almost constantly 8. Unable to answer Pain Effect on Sleep: 1 Pain Interference with Therapy: 1 Pain Interference w/Day-to-Day: 1 Mental Status Patient Orientation: Normal For Age Attachments: Camara Catheter Transfers SCALE: Activities may be completed with or without assistive devices. 3-Xqxxgasgfm-uopcyek completes the activity by him/herself with no assistance from a helper. 5-Set-up or Clean-up Assistance-helper sets up or cleans up; patient completes activity. [place] assists only prior to or following the activity. 4-Supervision or Touching Assistance-helper provides verbal cues and/or touching/steadying and/or contact guard assistance as patient completes activity. Assistance may be provided throughout the activity or intermittently. 3-Partial/Moderate Assistance-helper does LESS THAN HALF the effort. [place] l ifts, holds or supports trunk or limbs, but provides less than half the effort. 2-Substantial/Maximal Assistance-helper does MORE THAN HALF the effort. [place] lifts or holds trunk or limbs and provides more than half the effort. 7-Yzzbdtdjf-ajmhuq does ALL the effort. Patient does none of the effort to complete the activity. Or, the assistance of 2 or more helpers is required for t he patient to complete the activity. If activity was not attempted, code reason: 7-Patient Refused. 9-Not Applicable-not attempted and the patient did not perform the activity before the current illness, exacerbation or injury. 10-Not Attempted due to Environmental Limitations-(lack of equipment, weather restraints, etc.). 88-Not Attempted due to Medical Conditions or Safety Concerns. Roll Left & Right (QC): 6 Sit to Lying (QC): 6 Lying to Sitting/Side of Bed(Q: 6 Sit to Stand (QC): 4 Chair/Bdv-ss-Lldgy Xfer(QC): 4 sit to stand at // bars with bars at lowest height simulating home situation x 6 trials CGA only. Gait Training for and back one step etc in // bars Exercises Supine Ex: Ankle pumps, Quad Set, Rolling, Glut sets, Heel Slides, Short Arc Quads, Scooting, Hip abd/add Supine Reps: 20 (stretches where approp and assisted etc) Seated Therapy Exercises: Sit to stand Seated Reps: 6 Treatments w/c mob indep, TRFs w/c to mat table and back with CGA to min, sit to stands in // bars at low setting x 6 trials SBA to CGA, supine bilat LE strengthening and stretching ie HC,HS Assessment Current Status: Good Progress meeting some goals every day, good progress in all phases of Rx PT [facility] Goals Insurance Clerk Goals PT [facility] Goals Time Frame: Jun 30, 2022 Roll Left & Right (QC): 6 Sit to Lying (QC): 6 Lying-Sitting on Side/Bed(QC): 6 Sit to Stand (QC): 4 (CGA) Chair/Dzw-sb-Hwojt Xfer(QC): 4 (CGA) Toilet Transfer (QC): 4 (CGA) Car Transfer (QC): 4 (CGA) Does the Patient Walk: No and Walking Goal NOT indicated Walk 10 feet (QC): 9 Walk 50ft with 2 Turns (QC): 9 Walk 150 ft (QC): 9 Walking 10ft on Uneven Surface: 9 1 Step (curb) (QC): 9 4 Steps (QC): 9 12 Steps (QC): 9 Picking up an Object (QC): 9 Wheel 50 feet with 2 turns (QC: 6 Wheel 150 feet: 6 PT Plan Treatment/Plan Treatment Plan: Continue Plan of Care Treatment Plan: Bed Mobility, Education, Functional Activity Lizeth, Functional Strength, Group Therapy, Safety, Therapeutic Exercise, Transfers Treatment Duration: Jun 30, 2022 Frequency: At least 5 of 7 days/Wk (IRF) Estimated Hrs Per Day: 1.5 hours per day Patient and/or Family Agrees t: Yes Safety Risks/Education Patient Education: Transfer Techniques, Correct Positioning, W/C Management, Disease Process, Safety Issues Teaching Recipient: Patient Response to Teaching: Reinforcement Needed Time Time In: 1000 Time Out: 1100 DATE: Jun 18, 2022 Total Billed Treatment Time: 60 Total Billed Treatment 1,EX35m,FA25m ROJAS COLES REFERRAL SPECIALIST Jun 18, 2022 10:59
--- NOTE | 2022-06-18 13:00 | Physical Therapy Daily Note ---
PT Daily Note-Current Subjective Agrees to Rx, "my legs are shot now" c/o fatigue Pain Location: No Pain Reported Section J - Health Conditions 1. Rarely or not at all 2. Occasionally 3. Frequently 4. Almost constantly 8. Unable to answer Pain Effect on Sleep: 1 Pain Interference with Therapy: 1 Pain Interference w/Day-to-Day: 1 Mental Status Patient Orientation: Normal For Age Attachments: Camara Catheter Transfers SCALE: Activities may be completed with or without assistive devices. 9-Gnnbhlxueg-htcmpyp completes the activity by him/herself with no assistance from a helper. 5-Set-up or Clean-up Assistance-helper sets up or cleans up; patient completes activity. [place] assists only prior to or following the activity. 4-Supervision or Touching Assistance-helper provides verbal cues and/or touching/steadying and/or contact guard assistance as patient completes activity. Assistance may be provided throughout the activity or intermittently. 3-Partial/Moderate Assistance-helper does LESS THAN HALF the effort. [place] lif ts, holds or supports trunk or limbs, but provides less than half the effort. 2-Substantial/Maximal Assistance-helper does MORE THAN HALF the effort. [place] lifts or holds trunk or limbs and provides more than half the effort. 4-Vnvduslve-ldhjto does ALL the effort. Patient does none of the effort to complete the activity. Or, the assistance of 2 or more helpers is required for the patient to complete the activity. If activity was not attempted, code reason: 7-Patient Refused. 9-Not Applicable-not attempted and the patient did not perform the activity before the current illness, exacerbation or injury. 10-Not Attempted due to Environmental Limitations-(lack of equipment, weather restraints, etc.). 88-Not Attempted due to Medical Conditions or Safety Concerns. Sit to Stand (QC): 4 Wheelchair Training Type of Wheelchair: Manual 1000ft indep turns and braking etc Exercises Seated Therapy Exercises: Sit to stand Treatments w/c mob, sit to stands at // bars SBA x 6 trials, stands for 1-2 mins attempting no hands on bars for balance Assessment Current Status: Good Progress PT Long-Term Goals Long-Term Goals PT Legislative Analyst Goals Time Frame: Jun 30, 2022 Roll Left & Right (QC): 6 Sit to Lying (QC): 6 Lying-Sitting on Side/Bed(QC): 6 Sit to Stand (QC): 4 (CGA) Chair/Xff-vw-Gfptw Xfer(QC): 4 (CGA) Toilet Transfer (QC): 4 (CGA) Car Transfer (QC): 4 (CGA) Does the Patient Walk: No and Walking Goal NOT indicated Walk 10 feet (QC): 9 Walk 50ft with 2 Turns (QC): 9 Walk 150 ft (QC): 9 Walking 10ft on Uneven Surface: 9 1 Step (curb) (QC): 9 4 Steps (QC): 9 12 Steps (QC): 9 Picking up an Object (QC): 9 Wheel 50 feet with 2 turns (QC: 6 Wheel 150 feet: 6 PT Plan Treatment/Plan Treatment Plan: Continue Plan of Care Treatment Plan: Bed Mobility, Education, Functional Activity Lizeth, Functional Strength, Group Therapy, Safety, Therapeutic Exercise, Transfers Treatment Duration: Jun 30, 2022 Frequency: At least 5 of 7 days/Wk (IRF) Estimated Hrs Per Day: 1.5 hours per day Patient and/or Family Agrees t: Yes Safety Risks/Education Patient Education: Transfer Techniques, W/C Management Time Time In: 1230 Time Out: 1300 DATE: Jun 18, 2022 Total Billed Treatment Time: 30 Total Billed Treatment 1,wc 10m,FA20m ROJAS COLES BLOCK PRESS OPERATOR Jun 18, 2022 13:00
--- NOTE | 2022-06-18 14:35 | Occupational Ther Daily Note ---
OT Current Status-Daily Note Subjective Pt very sleepy sitting in w/c. Pt very fatigued from therapy sessions today. Pt agrees to therapy. No c/o pain. Mental Status/Objective Patient Orientation: Person, Place, Time, Situation Attachments: IV ADL-Treatment Therapy Code Descriptions/Definitions Functional [place] Measure: 0=Not Assessed/NA 4=Minimal Assistance 1=Total Assistance 5=Supervision or Setup 2=Maximal Assistance 6=Modified [place] 3=Moderate Assistance 7=Complete IndependenceSCALE: Activities may be completed with or without assistive devices. 5-Jmojijstzn-pjzfpba completes the activity by him/herself with no assistance from a helper. 5-Set-up or Clean-up Assistance-helper sets up or cleans up; patient completes activity. [place] assists only prior to or following the activity. 4-Supervision or Touching Assistance-helper provides verbal cues and/or touching/steadying and/or contact guard assistance as patient completes activity. Assistance may be provided throughout the activity or intermittently. 3-Partial/Moderate Assistance-helper does LESS THAN HALF the effort. [place] lifts, holds or supports trunk or limbs, but provides less than half the effort. 2-Substantial/Maximal Assistance-helper does MORE THAN HALF the effort. [place] lifts or holds trunk or limbs and provides more than half the effort. 3-Etmgdmihw-rkzpwh does ALL the effort. Patient does none of the effort to complete the activity. Or, the assistance of 2 or more helpers is required for the patient to complete the activity. If activity was not attempted, code reason: 7-Patient Refused. 9-Not Applicable-not attempted and the patient did not perform the activity before the current illness, exacerbation or injury. 10-Not Attempted due to Environmental Limitations-(lack of equipment, weather restraints, etc.). 88-Not Attempted due to Medical Conditions or Safety Concerns. Other Treatment Pt positioned w/c to transfer into bed. Due to fatigue pt required min A for modified SPT from w/c to bed. Pt completed bed mobility independent. Pt made comfortable in bed. Call light/phone in reach. All needs met in room. OT Short Term Goals Short Term Goals Time Frame: Jun 18, 2022 OT [facility] Goals [facility] Goals Time Frame: Jul 10, 2022 Acute change in mental status: 0 Inattention: 0 Disorganized thinkin Altered level of consciousness: 0 Eating (QC): 6 (met) Oral Hygiene (QC): 6 (met) Toileting Hygiene (QC): 6 (met) Shower/Bathe Self (QC): 6 (met) Upper Body Dressing (QC): 6 (met) Lower Body Dressing (QC): 6 (met) On/Off Footwear (QC): 6 (met) Additional Goals: 1-Demonstrate ADL Tasks, 2-Verbalize Understanding, 3- ImproveStrength/Lizeth 1=Demonstrate adherence to instructed precautions during ADL tasks. 2=Patient will verbalize/demonstrate understanding of assistive devices/modifications for ADL. 3=Patient will improve strength/tolerance for activity to enable patient to perform ADL's. OT Education/Plan Problem List/Assessment Assessment: Decreased Activ Tolerance, Decreased UE Strength Discharge Recommendations Plan/Recommendations: Continue POC Treatment Plan/Plan of Care Patient would benefit from OT for education, treatment and training to promote independence in ADL's, mobility, safety and/or upper extremity function for ADL's. Plan of Care: ADL Retraining, Functional Mobility, Group Exercise/Act as Ind, UE Funct Exercise/Act Treatment Duration: Jul 10, 2022 Frequency: At least 5 of 7 days/Wk (IRF) Estimated Hrs Per Day: 1.5 hours per day Agreement: Yes Rehab Potential: Fair Time Start Time: 14:00 Stop Time: 14:30 DATE: Jun 18, 2022 Total Time Billed (hr/min): 30 Billed Treatment Time 1 visit-FA 2 (30 min) MACKENZIE DOMINGUEZ Jun 18, 2022 14:35
[2022-06-18 19:09] VITALS: BP 131/72
[2022-06-19] MEDS: ceFAZolin INJECTION 2,000 MG in NS (IVPB) 50 ML IV SCH ×3 (05:53→21:23)
--- NOTE | 2022-06-19 07:05 | PM&R Progress Note ---
Subjective HPI/CC On Admission Date Seen by Provider: Jun 19, 2022 Time Seen by Provider: 12:00 Subjective/Events-last exam 06/19/2022: Doing well Working with PT Increasing strength Condom catheter will be brought from home to use 06/18/2022: Doing very well No pain reported BM regimen ordered IV abx maintained Working hard in therapy 06/17/2022: Doing well Improved in therapy already Likely short course here in ARU No pain reported BM regimen ordered as he does at home In out caths will be initiated after lambert ANGEL LUIS Review of Systems General: Fatigue, Malaise Objective Exam Vital Signs Vital Signs Date Time Temp Pulse Resp B/P (MAP) Pulse Ox O2 Delivery O2 Flow Rate FiO2 06/19/22 08:10 Room Air 06/19/22 08:00 36.3 82 16 134/81 (98) 97 Capillary Refill : General Appearance: No Apparent Distress, WD/WN, Chronically ill, Thin HEENT: PERRL/EOMI, Normal ENT Inspection, Pharynx Normal Neck: Full Range of Motion, Normal Inspection, Non Tender, Supple, Carotid Bruit Respiratory: Chest Non Tender, Lungs Clear, Normal Breath Sounds, No Accessory Muscle Use, No Respiratory Distress Cardiovascular: Regular Rate, Rhythm, No Edema, No Gallop, No JVD, No Murmur, Normal Peripheral Pulses Gastrointestinal: Normal Bowel Sounds, No Organomegaly, No Pulsatile Mass, Non Tender, Soft Back: Normal Inspection, No CVA Tenderness, No Vertebral Tenderness Extremity: Normal Capillary Refill, Normal Inspection, Normal Range of Motion, Non Tender, No Calf Tenderness, No Pedal Edema Neurologic/Psychiatric: Alert, Oriented x3, Normal Mood/Affect, medical lead II-XII Norm as Tested, Depressed Affect, Motor Weakness (bilateral lower extremities) Skin: Normal Color, Warm/Dry Lymphatic: No Adenopathy Results/Procedures Lab Patient resulted labs reviewed. FIM Transfers Therapy Code Descriptions/Definitions Functional [place] Measure: 0=Not Assessed/NA 4=Minimal Assistance 1=Total Assistance 5=Supervision or Setup 2=Maximal Assistance 6=Modified [place] 3=Moderate Assistance 7=Complete IndependenceSCALE: Activities may be completed with or without assistive devices. 4-Kajgaytsui-nhidzyh completes the activity by him/herself with no assistance from a helper. 5-Set-up or Clean-up Assistance-helper sets up or cleans up; patient completes activity. [place] assists only prior to or following the activity. 4-Supervision or Touching Assistance-helper provides verbal cues and/or touching/steadying and/or contact guard assistance as patient completes activity. Assistance may be provided throughout the activity or intermittently. 3-Partial/Moderate Assistance-helper does LESS THAN HALF the effort. [place] lifts, holds or supports trunk or limbs, but provides less than half the effort. 2-Substantial/Maximal Assistance-helper does MORE THAN HALF the effort. [place] lifts or holds trunk or limbs and provides more than half the effort. 5-Tdwccmcrz-opqipe does ALL the effort. Patient does none of the effort to complete the activity. Or, the assistance of 2 or more helpers is required for the patient to complete the activity. If activity was not attempted, code reason: 7-Patient Refused. 9-Not Applicable-not attempted and the patient did not perform the activity before the current illness, exacerbation or injury. 10-Not Attempted due to Environmental Limitations-(lack of equipment, weather restraints, etc.). 88-Not Attempted due to Medical Conditions or Safety Concerns. Roll Left to Right (QC): 6 Sit to Lying (QC): 6 Sit to Stand (QC): 4 Chair/Zem-ae-Ylhfv Xfer(QC): 4 Car Transfer (QC): 2 Gait Training Does the Patient Walk?: No and Walking Goal NOT indicated Walk 10 feet (QC): 9 Walk 50 ft with 2 Turns(QC): 9 Walk 150 ft (QC): 9 Walking 10ft/uneven surface-QC: 9 Wheelchair Training Does the Pt Use a Wheelchair?: Yes Distance: 200'x2 Wheel 50 ft with 2 turns (QC): 6 Wheel 150 ft (QC): 6 Type of Wheelchair: Manual Stair Training 1 Step (curb) (QC): 9 4 Steps (QC): 9 12 Steps (QC): 9 Balance Picking up an Object (QC): 9 ADL-Treatment Eating (QC): 5 Oral Hygiene (QC): 6 Shower/Bathe Self (QC): 5 Upper Body Dressing (QC): 6 Lower Body Dressing (QC): 3 On/Off Footwear (QC): 3 Toileting Hygiene (QC): 2 Toilet Transfer (QC): 1 Assessment/Plan Assessment and Plan Assess & Plan/Chief Complaint Assessment: Debility from renal cell carcinoma chemotherapy treatment Acute endocarditis placed on Cefazolin1 grams IV Q8 hours for 6 weeks Remote hx of C3 spinal cord injury CKD Anemia Weight loss h/o decubitus ulcers Neurogenic bladder performs in out caths Plan: Pain control In/out caths Lab monitoring Cardiology consultation Lab monitoring 06/17/2022: Monitor closely Fall risk 06/18/2022: Refuses to DC Lambert Monitor closely 06/19/2022: Monitor closely Lambert DC once condom catheter brought from home (1) Debility (2) Endocarditis (3) Renal cell carcinoma (4) Weight loss (5) C3 spinal cord injury MELI THOMAS DO Jun 19, 2022 07:05
[2022-06-19] MEDS: OXYBUTYNIN (DITROPAN) 5 MG TAB PO SCH ×3 (07:37→19:52)
[2022-06-19] MEDS: LACTOBACILLUS ACIDOPHILUS (PROBIOTIC) CAPSULE PO SCH ×2 (07:37→19:52)
[2022-06-19 08:00] VITALS: BP 134/81
[2022-06-19] MEDS: polyethylene glycoL POWDER 17 GM (MIRALAX) PACK PO SCH ×2 (09:09→19:25)
[2022-06-19] MEDS: SENNA W/DOCUSATE (SENOKOT S) TABLET PO SCH ×2 (09:09→19:25)
[2022-06-19] MEDS: DOCUSATE SODIUM 100 MG (COLACE) CAP PO SCH ×2 (09:09→19:25)
[2022-06-19] MEDS: ENOXAPARIN 40 MG/0.4 ML (LOVENOX) SYR SC SCH (09:10)
--- NOTE | 2022-06-19 09:34 | Physical Therapy Daily Note ---
PT Daily Note-Current Subjective Pt. agrees to Rx, states he did not sleep well last night and relates this to how hard he worked his legs yesterday in therapy. Pt agrees to stretching and gentle ex, sld brd TRFs and Nustep attempt Pain Location: No Pain Reported Section J - Health Conditions 1. Rarely or not at all 2. Occasionally 3. Frequently 4. Almost constantly 8. Unable to answer Pain Effect on Sleep: 1 Pain Interference with Therapy: 1 Pain Interference w/Day-to-Day: 1 Mental Status Patient Orientation: Normal For Age Attachments: Camara Catheter Transfers SCALE: Activities may be completed with or without assistive devices. 4-Fptjqmewrn-leehuoe completes the activity by him/herself with no assistance from a helper. 5-Set-up or Clean-up Assistance-helper sets up or cleans up; patient completes activity. [place] assists only prior to or following the activity. 4-Supervision or Touching Assistance-helper provides verbal cues and/or touching/steadying and/or contact guard assistance as patient completes activity. Assistance may be provided throughout the activity or intermittently. 3-Partial/Moderate Assistance-helper does LESS THAN HALF the effort. [place] lifts, holds or supports trunk or limbs, but provides less than half the effort. 2-Substantial/Maximal Assistance-helper does MORE THAN HALF the effort. [place] lifts or holds trunk or limbs and provides more than half the effort. 6-Fjiktueva-owakbu does ALL the effort. Patient does none of the effort to complete the activity. Or, the assistance of 2 or more helpers is required for the patient to complete the activity. If activity was not attempted, code reason: 7-Patient Refused. 9-Not Applicable-not attempted and the patient did not perform the activity before the current illness, exacerbation or injury. 10-Not Attempted due to Environmental Limitations-(lack of equipment, weather restraints, etc.). 88-Not Attempted due to Medical Conditions or Safety Concerns. Roll Left & Right (QC): 6 Sit to Lying (QC): 6 Lying to Sitting/Side of Bed(Q: 6 Chair/[place]-io-Fxmfc Xfer(QC): 4 sld brd w/c to therapy mat, and back, sld brd w/c to Nustep and back all with min assist, pt gaining indep in placing brd, Wheelchair Training Type of Wheelchair: Manual indep about room and to gym ad back Exercises Supine Ex: Ankle pumps, Rolling, Glut sets, Heel Slides, Short Arc Quads, Scooting, Straight leg raise, Hip abd/add Supine Reps: 20 prone stretches for quads, active hamstr curls on right, hip flexor stretches as well , in sup A/AAROM and gentle HC stretches etc 5 x 20 s NuStep Minutes: 8 NuStep Workload: 4 Treatments as above, ex and stretching, nustep, sld brd TRFskills, no standing in // bars per pt request Assessment Current Status: Good Progress gives full effort, guides therapist in his desired goals as well as what he feels he can accomplish each Rx PT [facility] Goals 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 PT [facility] Goals Time Frame: Jun 30, 2022 Roll Left & Right (QC): 6 Sit to Lying (QC): 6 Lying-Sitting on Side/Bed(QC): 6 Sit to Stand (QC): 4 (CGA) Chair/Exy-ze-Kjgxf Xfer(QC): 4 (CGA) Toilet Transfer (QC): 4 (CGA) Car Transfer (QC): 4 (CGA) Does the Patient Walk: No and Walking Goal NOT indicated Walk 10 feet (QC): 9 Walk 50ft with 2 Turns (QC): 9 Walk 150 ft (QC): 9 Walking 10ft on Uneven Surface: 9 1 Step (curb) (QC): 9 4 Steps (QC): 9 12 Steps (QC): 9 Picking up an Object (QC): 9 Wheel 50 feet with 2 turns (QC: 6 Wheel 150 feet: 6 PT Plan Treatment/Plan Treatment Plan: Continue Plan of Care Treatment Plan: Bed Mobility, Education, Functional Activity Lizeth, Functional Strength, Group Therapy, Safety, Therapeutic Exercise, Transfers Treatment Duration: Jun 30, 2022 Frequency: At least 5 of 7 days/Wk (IRF) Estimated Hrs Per Day: 1.5 hours per day Patient and/or Family Agrees t: Yes Safety Risks/Education Patient Education: Transfer Techniques, Reviewed Precautions, Correct Positioning, Disease Process, Safety Issues Teaching Recipient: Patient Teaching Methods: Demonstration, Discussion Response to Teaching: Verbalize Understanding, Return Demonstration, Reinforcement Needed Time Time In: 830 Time Out: 930 DATE: Jun 19, 2022 Total Billed Treatment Time: 60 Total Billed Treatment 1,EX37m,FA23 ROJAS COLES PORTABLE POWER TOOL REPAIRER Jun 19, 2022 09:34
--- NOTE | 2022-06-19 11:59 | Occupational Ther Daily Note ---
OT Current Status-Daily Note Subjective Pt alert, sitting in w/c. Pt very fatigued from yesterday therapy sessions and not sleeping well last night. Agrees to therapy. Mental Status/Objective Patient Orientation: Person, Place, Time, Situation Attachments: Camara Catheter, IV ADL-Treatment Therapy Code Descriptions/Definitions Functional [place] Measure: 0=Not Assessed/NA 4=Minimal Assistance 1=Total Assistance 5=Supervision or Setup 2=Maximal Assistance 6=Modified [place] 3=Moderate Assistance 7=Complete IndependenceSCALE: Activities may be completed with or without assistive devices. 6-Swcieudxvy-cajslki completes the activity by him/herself with no assistance from a helper. 5-Set-up or Clean-up Assistance-helper sets up or cleans up; patient completes activity. [place] assists only prior to or following the activity. 4-Supervision or Touching Assistance-helper provides verbal cues and/or touching/steadying and/or contact guard assistance as patient completes activity. Assistance may be provided throughout the activity or intermittently. 3-Partial/Moderate Assistance-helper does LESS THAN HALF the effort. [place] lifts, holds or supports trunk or limbs, but provides less than half the effort. 2-Substantial/Maximal Assistance-helper does MORE THAN HALF the effort. [place] lifts or holds trunk or limbs and provides more than half the effort. 8-Mlrjqvcey-dcghaa does ALL the effort. Patient does none of the effort to com plete the activity. Or, the assistance of 2 or more helpers is required for the patient to complete the activity. If activity was not attempted, code reason: 7-Patient Refused. 9-Not Applicable-not attempted and the patient did not perform the activity before the current illness, exacerbation or injury. 10-Not Attempted due to Environmental Limitations-(lack of equipment, weather restraints, etc.). 88-Not Attempted due to Medical Conditions or Safety Concerns. Other Treatment Problem solving how to transfer on/off toilet using sliding board or modified SPT. Sliding board to toilet is not safe due to height difference of toilet to w/c. Pt able to transfer onto toilet with CGA or less assistance then max A to transfer back up to w/c due to height difference. Pt propelled to therapy gym. Completed arm bike with minimal resistance forward/backward rotation 3 min each, only 1 recovery break. Pt then completed arm/shldr pulleys for 2 min. After therapy, pt sitting in w/c in room with call light/phone in reach. All needs met in room. OT Short Term Goals Short Term Goals Time Frame: Jun 18, 2022 OT [place] [facility] [place] Goals [facility] Goals Time Frame: Jul 10, 2022 Acute change in mental status: 0 Inattention: 0 Disorganized thinkin Altered level of consciousness: 0 Eating (QC): 6 (met) Oral Hygiene (QC): 6 (met) Toileting Hygiene (QC): 6 (met) Shower/Bathe Self (QC): 6 (met) Upper Body Dressing (QC): 6 (met) Lower Body Dressing (QC): 6 (met) On/Off Footwear (QC): 6 (met) Additional Goals: 1-Demonstrate ADL Tasks, 2-Verbalize Understanding, 3- ImproveStrength/Lizeth 1=Demonstrate adherence to instructed precautions during ADL tasks. 2=Patient will verbalize/demonstrate understanding of assistive devices/modifications for ADL. 3=Patient will improve strength/tolerance for activity to enable patient to perform ADL's. OT Education/Plan Problem List/Assessment Assessment: Decreased Activ Tolerance, Decreased UE Strength, Impaired Self- Care Skills Discharge Recommendations Plan/Recommendations: Continue POC Treatment Plan/Plan of Care Patient would benefit from OT for education, treatment and training to promote independence in ADL's, mobility, safety and/or upper extremity function for ADL's. Plan of Care: ADL Retraining, Functional Mobility, Group Exercise/Act as Ind, UE Funct Exercise/Act Treatment Duration: Jul 10, 2022 Frequency: At least 5 of 7 days/Wk (IRF) Estimated Hrs Per Day: 1.5 hours per day Agreement: Yes Rehab Potential: Fair Time Start Time: 11:00 Stop Time: 12:00 DATE: Jun 19, 2022 Total Time Billed (hr/min): 60 Billed Treatment Time 1 visit-EX 2 (30 min) FA 2 (30 min) MACKENZIE DOMINGUEZ Jun 19, 2022 11:59
--- NOTE | 2022-06-19 13:23 | Physical Therapy Daily Note ---
PT Daily Note-Current Subjective Patient in WC at bedside pre tx, agrees to PT, has no complaints of pain. Pain Section J - Health Conditions 1. Rarely or not at all 2. Occasionally 3. Frequently 4. Almost constantly 8. Unable to answer Pain Effect on Sleep: 1 Pain Interference with Therapy: 1 Pain Interference w/Day-to-Day: 1 Appearance Patient in WC at bedside post tx with nurse call, phone, tray, all needs met. Mental Status Patient Orientation: Normal For Age Transfers SCALE: Activities may be completed with or without assistive devices. 1-Utdyxhfyxt-bqwajoz completes the activity by him/herself with no assistance from a helper. 5-Set-up or Clean-up Assistance-helper sets up or cleans up; patient completes activity. [place] assists only prior to or following the activity. 4-Supervision or Touching Assistance-helper provides verbal cues and/or touching/steadying and/or contact guard assistance as patient completes activ ity. Assistance may be provided throughout the activity or intermittently. 3-Partial/Moderate Assistance-helper does LESS THAN HALF the effort. [place] lifts, holds or supports trunk or limbs, but provides less than half the effort. 2-Substantial/Maximal Assistance-helper does MORE THAN HALF the effort. [place] lifts or holds trunk or limbs and provides more than half the effort. 3-Qnnivcqts-zdpxra does ALL the effort. Patient does none of the effort to complete the activity. Or, the assistance of 2 or more helpers is required for the patient to complete the activity. If activity was not attempted, code reason: 7-Patient Refused. 9-Not Applicable-not attempted and the patient did not perform the activity before the current illness, exacerbation or injury. 10-Not Attempted due to Environmental Limitations-(lack of equipment, weather restraints, etc.). 88-Not Attempted due to Medical Conditions or Safety Concerns. Roll Left & Right (QC): 6 Sit to Lying (QC): 4 Lying to Sitting/Side of Bed(Q: 4 Chair/Mva-ip-Jqsag Xfer(QC): 4 Patient wheeled down to the therapy gym and performed a transfer to therapy table and back with CGA Exercises Supine BLE stretching (hamstring and glutes), manually resisted leg press x10 on the right side x4 on the left side, sit to motor builder winder parallel bars x10 (no assist) Treatments stretching, strengthening Assessment Current Status: Fair Progress improving sit to stand PT [employer] Assembler Goals Half-Way Goals PT [employer] Assembler Goals Time Frame: Jun 30, 2022 Roll Left & Right (QC): 6 Sit to Lying (QC): 6 Lying-Sitting on Side/Bed(QC): 6 Sit to Stand (QC): 4 (CGA) Chair/Kbj-hp-Cdgcj Xfer(QC): 4 (CGA) Toilet Transfer (QC): 4 (CGA) Car Transfer (QC): 4 (CGA) Does the Patient Walk: No and Walking Goal NOT indicated Walk 10 feet (QC): 9 Walk 50ft with 2 Turns (QC): 9 Walk 150 ft (QC): 9 Walking 10ft on Uneven Surface: 9 1 Step (curb) (QC): 9 4 Steps (QC): 9 12 Steps (QC): 9 Picking up an Object (QC): 9 Wheel 50 feet with 2 turns (QC: 6 Wheel 150 feet: 6 PT Plan Problem List Problem List: Activity Tolerance, Functional Strength, Safety, Balance, Gait, Transfer, Bed Mobility, ROM Treatment/Plan Treatment Plan: Continue Plan of Care Treatment Plan: Bed Mobility, Education, Functional Activity Lizeth, Functional Strength, Group Therapy, Safety, Therapeutic Exercise, Transfers Treatment Duration: Jun 30, 2022 Frequency: At least 5 of 7 days/Wk (IRF) Estimated Hrs Per Day: 1.5 hours per day Patient and/or Family Agrees t: Yes Safety Risks/Education Patient Education: Transfer Techniques, Correct Positioning, Safety Issues Teaching Recipient: Patient Teaching Methods: Demonstration, Discussion Response to Teaching: Reinforcement Needed Time Time In: 1300 Time Out: 1330 DATE: Jun 19, 2022 Total Billed Treatment Time: 30 Total Billed Treatment 1 visit EX 15' FA 15' EDGAR REYNOLDS PT Jun 19, 2022 13:23
--- NOTE | 2022-06-19 14:04 | Occupational Ther Daily Note ---
OT Current Status-Daily Note Subjective Pt alert, sitting in w/c. Pt agrees to therapy. No c/o pain at this time, only fatigue. Mental Status/Objective Patient Orientation: Person, Place, Time, Situation Attachments: IV ADL-Treatment Therapy Code Descriptions/Definitions Functional [place] Measure: 0=Not Assessed/NA 4=Minimal Assistance 1=Total Assistance 5=Supervision or Setup 2=Maximal Assistance 6=Modified [place] 3=Moderate Assistance 7=Complete IndependenceSCALE: Activities may be completed with or without assistive devices. 3-Ddetcpxwcj-scdxcsz completes the activity by him/herself with no assistance from a helper. 5-Set-up or Clean-up Assistance-helper sets up or cleans up; patient completes activity. [place] assists only prior to or following the activity. 4-Supervision or Touching Assistance-helper provides verbal cues and/or touching/steadying and/or contact guard assistance as patient completes activity. Assistance may be provided throughout the activity or intermittently. 3-Partial/Moderate Assistance-helper does LESS THAN HALF the effort. [place] lifts, holds or supports trunk or limbs, but provides less than half the effort. 2-Substantial/Maximal Assistance-helper does MORE THAN HALF the effort. [place] lifts or holds trunk or limbs and provides more than half the effort. 4-Cmhuihnzh-zthtzd does ALL the effort. Patient does none of the effort to complete the activity. Or, the assistance of 2 or more helpers is required for the patient to complete the activity. If activity was not attempted, code reason: 7-Patient Refused. 9-Not Applicable-not attempted and the patient did not perform the activity before the current illness, exacerbation or injury. 10-Not Attempted due to Environmental Limitations-(lack of equipment, weather restraints, etc.). 88-Not Attempted due to Medical Conditions or Safety Concerns. Other Treatment Working on transfers to/from shower transfer bench with SBA. SBA for transfer into bed. Pt completed B UE strengthening and ROM task with 1# wt on wrist to complete ROM arc. After therapy, pt lying in bed with call light/phone in reach. All needs met in room. OT Short Term Goals Short Term Goals Time Frame: Jun 18, 2022 OT Long-Term Goals Long-Term Goals Time Frame: Jul 10, 2022 Acute change in mental status: 0 Inattention: 0 Disorganized thinkin Altered level of consciousness: 0 Eating (QC): 6 (met) Oral Hygiene (QC): 6 (met) Toileting Hygiene (QC): 6 (met) Shower/Bathe Self (QC): 6 (met) Upper Body Dressing (QC): 6 (met) Lower Body Dressing (QC): 6 (met) On/Off Footwear (QC): 6 (met) Additional Goals: 1-Demonstrate ADL Tasks, 2-Verbalize Understanding, 3- ImproveStrength/Lizeth 1=Demonstrate adherence to instructed precautions during ADL tasks. 2=Patient will verbalize/demonstrate understanding of assistive devices/modifications for ADL. 3=Patient will improve strength/tolerance for activity to enable patient to perform ADL's. OT Education/Plan Problem List/Assessment Assessment: Decreased Activ Tolerance, Decreased UE Strength, Impaired Self- Care Skills Discharge Recommendations Plan/Recommendations: Continue POC Treatment Plan/Plan of Care Patient would benefit from OT for education, treatment and training to promote independence in ADL's, mobility, safety and/or upper extremity function for ADL's. Plan of Care: ADL Retraining, Functional Mobility, Group Exercise/Act as Ind, UE Funct Exercise/Act Treatment Duration: Jul 10, 2022 Frequency: At least 5 of 7 days/Wk (IRF) Estimated Hrs Per Day: 1.5 hours per day Agreement: Yes Rehab Potential: Fair Time Start Time: 13:30 Stop Time: 14:00 DATE: Jun 19, 2022 Total Time Billed (hr/min): 30 Billed Treatment Time 1 visit-FA 1 (15 min) EX 1 (15 min) MACKENZIE DOMINGUEZ Jun 19, 2022 14:04
[2022-06-19] MEDS ORDERED: MULT200T12 PO (14:11)
[2022-06-19] MEDS ORDERED: BISA10SU45 RC (14:16)
[2022-06-19] MEDS ORDERED: CEFA2PLA9 IV (15:07)
[2022-06-19 20:00] VITALS: BP 95/60
--- NOTE | 2022-06-20 05:38 | PM&R Progress Note ---
Subjective HPI/CC On Admission Date Seen by Provider: Jun 20, 2022 Time Seen by Provider: 12:00 Subjective/Events-last exam 06/20/2022: No major issues Lambert cath still in place until his home condom catheter is brought from home Awaiting visitor today 06/19/2022: Doing well Working with PT Increasing strength Condom catheter will be brought from home to use 06/18/2022: Doing very well No pain reported BM regimen ordered IV abx maintained Working hard in therapy 06/17/2022: Doing well Improved in therapy already Likely short course here in ARU No pain reported BM regimen ordered as he does at home In out caths will be initiated after lambert DC Review of Systems General: Fatigue, Malaise Neurological: Weakness, Incoordination Objective Exam Vital Signs Vital Signs Date Time Temp Pulse Resp B/P (MAP) Pulse Ox O2 Delivery O2 Flow Rate FiO2 06/20/22 09:00 97 Room Air 06/20/22 07:05 36.9 80 20 137/77 (97) Capillary Refill : General Appearance: No Apparent Distress, WD/WN, Chronically ill, Thin HEENT: PERRL/EOMI, Normal ENT Inspection, Pharynx Normal Neck: Full Range of Motion, Normal Inspection, Non Tender, Supple, Carotid Bruit Respiratory: Chest Non Tender, Lungs Clear, Normal Breath Sounds, No Accessory Muscle Use, No Respiratory Distress Cardiovascular: Regular Rate, Rhythm, No Edema, No Gallop, No JVD, No Murmur, Normal Peripheral Pulses Gastrointestinal: Normal Bowel Sounds, No Organomegaly, No Pulsatile Mass, Non Tender, Soft Back: Normal Inspection, No CVA Tenderness, No Vertebral Tenderness Extremity: Normal Capillary Refill, Normal Inspection, Normal Range of Motion, Non Tender, No Calf Tenderness, No Pedal Edema Neurologic/Psychiatric: Alert, Oriented x3, Normal Mood/Affect, electronic video games servicer II-XII Norm as Tested, Depressed Affect, Motor Weakness (bilateral lower extremities) Skin: Normal Color, Warm/Dry Lymphatic: No Adenopathy Results/Procedures Lab Patient resulted labs reviewed. FIM Transfers Therapy Code Descriptions/Definitions Functional [place] Measure: 0=Not Assessed/NA 4=Minimal Assistance 1=Total Assistance 5=Supervision or Setup 2=Maximal Assistance 6=Modified [place] 3=Moderate Assistance 7=Complete IndependenceSCALE: Activities may be completed with or without assistive devices. 7-Rqczqydvog-kasmrrn completes the activity by him/herself with no assistance from a helper. 5-Set-up or Clean-up Assistance-helper sets up or cleans up; patient completes activity. [place] assists only prior to or following the activity. 4-Supervision or Touching Assistance-helper provides verbal cues and/or touching/steadying and/or contact guard assistance as patient completes activity. Assistance may be provided throughout the activity or intermittently. 3-Partial/Moderate Assistance-helper does LESS THAN HALF the effort. [place] lifts, holds or supports trunk or limbs, but provides less than half the effort. 2-Substantial/Maximal Assistance-helper does MORE THAN HALF the effort. [place] lifts or holds trunk or limbs and provides more than half the effort. 1-Klswqvned-qoycts does ALL the effort. Patient does none of the effort to complete the activity. Or, the assistance of 2 or more helpers is required for the patient to complete the activity. If activity was not attempted, code reason: 7-Patient Refused. 9-Not Applicable-not attempted and the patient did not perform the activity before the current illness, exacerbation or injury. 10-Not Attempted due to Environmental Limitations-(lack of equipment, weather restraints, etc.). 88-Not Attempted due to Medical Conditions or Safety Concerns. Roll Left to Right (QC): 6 Sit to Lying (QC): 4 Sit to Stand (QC): 4 Chair/Xuu-ji-Cbbpb Xfer(QC): 4 Car Transfer (QC): 2 Gait Training Does the Patient Walk?: No and Walking Goal NOT indicated Walk 10 feet (QC): 9 Walk 50 ft with 2 Turns(QC): 9 Walk 150 ft (QC): 9 Walking 10ft/uneven surface-QC: 9 Wheelchair Training Does the Pt Use a Wheelchair?: Yes Distance: 200'x2 Wheel 50 ft with 2 turns (QC): 6 Wheel 150 ft (QC): 6 Type of Wheelchair: Manual Stair Training 1 Step (curb) (QC): 9 4 Steps (QC): 9 12 Steps (QC): 9 Balance Picking up an Object (QC): 9 ADL-Treatment Eating (QC): 5 Oral Hygiene (QC): 6 Shower/Bathe Self (QC): 5 Upper Body Dressing (QC): 6 Lower Body Dressing (QC): 3 On/Off Footwear (QC): 3 Toileting Hygiene (QC): 2 Toilet Transfer (QC): 1 Assessment/Plan Assessment and Plan Assess & Plan/Chief Complaint Assessment: Debility from renal cell carcinoma chemotherapy treatment Acute endocarditis placed on Cefazolin1 grams IV Q8 hours for 6 weeks Remote hx of C3 spinal cord injury CKD Anemia Weight loss h/o decubitus ulcers Neurogenic bladder performs in out caths Plan: Pain control In/out caths Lab monitoring Cardiology consultation Lab monitoring 06/17/2022: Monitor closely Fall risk 06/18/2022: Refuses to DC Lambert Monitor closely 06/19/2022: Monitor closely Lambert DC once condom catheter brought from home 06/20/2022: Monitor closely Lambert DC soon (1) Debility (2) Endocarditis (3) Renal cell carcinoma (4) Weight loss (5) C3 spinal cord injury MELI THOMAS DO Jun 20, 2022 05:38
[2022-06-20] MEDS: ceFAZolin INJECTION 2,000 MG in NS (IVPB) 50 ML IV SCH ×3 (05:57→22:01)
[2022-06-20 07:05] VITALS: BP 137/77
[2022-06-20] MEDS: SENNA W/DOCUSATE (SENOKOT S) TABLET PO SCH ×2 (09:55→19:30)
[2022-06-20] MEDS: polyethylene glycoL POWDER 17 GM (MIRALAX) PACK PO SCH ×2 (09:55→19:30)
[2022-06-20] MEDS: DOCUSATE SODIUM 100 MG (COLACE) CAP PO SCH ×2 (09:55→19:30)
[2022-06-20] MEDS: ENOXAPARIN 40 MG/0.4 ML (LOVENOX) SYR SC SCH (09:56)
[2022-06-20] MEDS: OXYBUTYNIN (DITROPAN) 5 MG TAB PO SCH ×3 (09:56→19:38)
[2022-06-20] MEDS: LACTOBACILLUS ACIDOPHILUS (PROBIOTIC) CAPSULE PO SCH ×2 (09:56→19:38)
--- NOTE | 2022-06-20 10:39 | Physical Therapy Daily Note ---
PT Daily Note-Current Subjective Agrees to Rx, wants to stretch, TRF and do sit to stnds, feeling much stronger Pain Location: No Pain Reported Section J - Health Conditions 1. Rarely or not at all 2. Occasionally 3. Frequently 4. Almost constantly 8. Unable to answer Pain Effect on Sleep: 1 Pain Interference with Therapy: 1 Pain Interference w/Day-to-Day: 1 Mental Status Patient Orientation: Normal For Age Attachments: [place] Catheter Transfers SCALE: Activities may be completed with or without assistive devices. 1-Snejsgcowr-shyskzu completes the activity by him/herself with no assistance from a helper. 5-Set-up or Clean-up Assistance-helper sets up or cleans up; patient completes activity. [place] assists only prior to or following the activity. 4-Supervision or Touching Assistance-helper provides verbal cues and/or touching/steadying and/or contact guard assistance as patient completes activity . Assistance may be provided throughout the activity or intermittently. 3-Partial/Moderate Assistance-helper does LESS THAN HALF the effort. [place] lifts, holds or supports trunk or limbs, but provides less than half the effort. 2-Substantial/Maximal Assistance-helper does MORE THAN HALF the effort. [place] lifts or holds trunk or limbs and provides more than half the effort. 2-Goffihrpg-xefstw does ALL the effort. Patient does none of the effort to complete the activity. Or, the assistance of 2 or more helpers is required for the patient to complete the activity. If activity was not attempted, code reason: 7-Patient Refused. 9-Not Applicable-not attempted and the patient did not perform the activity before the current illness, exacerbation or injury. 10-Not Attempted due to Environmental Limitations-(lack of equipment, weather restraints, etc.). 88-Not Attempted due to Medical Conditions or Safety Concerns. w/c to Rx table and back, no sld brd CGA to SBA only. sit to stands in // bars x 8 SBA Exercises bilat HC and add stretches x 20 s x 5 ea Assessment Current Status: Excellent Progress motivated, gaining in indep in all phases PT Estimation Manager Goals Detention Goals PT Detention Goals Time Frame: Jun 30, 2022 Roll Left & Right (QC): 6 Sit to Lying (QC): 6 Lying-Sitting on Side/Bed(QC): 6 Sit to Stand (QC): 4 (CGA) Chair/Ros-bh-Noxcw Xfer(QC): 4 (CGA) Toilet Transfer (QC): 4 (CGA) Car Transfer (QC): 4 (CGA) Does the Patient Walk: No and Walking Goal NOT indicated Walk 10 feet (QC): 9 Walk 50ft with 2 Turns (QC): 9 Walk 150 ft (QC): 9 Walking 10ft on Uneven Surface: 9 1 Step (curb) (QC): 9 4 Steps (QC): 9 12 Steps (QC): 9 Picking up an Object (QC): 9 Wheel 50 feet with 2 turns (QC: 6 Wheel 150 feet: 6 PT Plan Treatment/Plan Treatment Plan: Continue Plan of Care Treatment Plan: Bed Mobility, Education, Functional Activity Lizeth, Functional Strength, Group Therapy, Safety, Therapeutic Exercise, Transfers Treatment Duration: Jun 30, 2022 Frequency: At least 5 of 7 days/Wk (IRF) Estimated Hrs Per Day: 1.5 hours per day Patient and/or Family Agrees t: Yes Safety Risks/Education Patient Education: Transfer Techniques, Correct Positioning Time Time In: 957 Time Out: 1021 DATE: Jun 20, 2022 Total Billed Treatment Time: 24 Total Billed Treatment 1,FA12,EX12 ROJAS COLES WELL CONTROL INSTRUCTOR Jun 20, 2022 10:39
[2022-06-20 19:38] VITALS: BP 85/50
[2022-06-21] MEDS: ceFAZolin INJECTION 2,000 MG in NS (IVPB) 50 ML IV SCH ×3 (06:10→22:09)
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
[2022-06-21 07:35] VITALS: BP 92/68
[2022-06-21] MEDS: OXYBUTYNIN (DITROPAN) 5 MG TAB PO SCH ×2 (09:24→09:27)
[2022-06-21] MEDS: ENOXAPARIN 40 MG/0.4 ML (LOVENOX) SYR SC SCH (09:24)
[2022-06-21] MEDS: LACTOBACILLUS ACIDOPHILUS (PROBIOTIC) CAPSULE PO SCH ×2 (09:24→20:40)
[2022-06-21] MEDS: SENNA W/DOCUSATE (SENOKOT S) TABLET PO SCH ×2 (09:24→19:25)
[2022-06-21] MEDS: polyethylene glycoL POWDER 17 GM (MIRALAX) PACK PO SCH ×2 (09:24→19:25)
[2022-06-21] MEDS: DOCUSATE SODIUM 100 MG (COLACE) CAP PO SCH ×2 (09:24→19:25)
[2022-06-21 19:53] VITALS: BP 129/77
[2022-06-22] MEDS: ceFAZolin INJECTION 2,000 MG in NS (IVPB) 50 ML IV SCH ×3 (05:06→21:32)
[2022-06-22 06:01] LABS: LYMPHOCYTES # (AUTO) 1.1 10^3/uL (1.0-4.0); NEUTROPHILS # (AUTO) 1.6 10^3/uL (1.8-7.8)
[2022-06-22 06:03] LABS: BASOPHILS % (AUTO) 1 % (0-10); EOSINOPHILS # (AUTO) 0.4 10^3/uL (0.0-0.3); EOSINOPHILS % (AUTO) 11 % (0-10); HEMATOCRIT 31 % (40-54); LYMPHOCYTES % (AUTO) 30 % (12-44); MEAN CORPUSCULAR HEMOGLOBIN 28 pg (25-34); MEAN CORPUSCULAR HGB CONC 33 g/dL (32-36); MEAN CORPUSCULAR VOLUME 85 fL (80-99); MEAN PLATELET VOLUME 10.8 fL (9.0-12.2); MONOCYTES # (AUTO) 0.4 10^3/uL (0.0-1.0); MONOCYTES % (AUTO) 12 % (0-12); NEUTROPHILS % (AUTO) 45 % (42-75); PLATELET COUNT 105 10^3/uL (130-400); WHITE BLOOD COUNT 3.6 10^3/uL (4.3-11.0)
[2022-06-22 06:12] LABS: BILIRUBIN,TOTAL 0.3 MG/DL (0.1-1.0); CALCIUM 8.9 MG/DL (8.5-10.1); CREATININE SERUM 0.69 MG/DL (0.60-1.30); POTASSIUM 3.8 MMOL/L (3.6-5.0); TOTAL PROTEIN 5.7 GM/DL (6.4-8.2)
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
[2022-06-22] MEDS: LACTOBACILLUS ACIDOPHILUS (PROBIOTIC) CAPSULE PO SCH ×2 (08:07→21:31)
[2022-06-22] MEDS: SENNA W/DOCUSATE (SENOKOT S) TABLET PO SCH ×2 (08:10→21:31)
[2022-06-22] MEDS: DOCUSATE SODIUM 100 MG (COLACE) CAP PO SCH ×2 (08:10→21:31)
[2022-06-22 08:13] VITALS: BP 82/48
[2022-06-22] MEDS: polyethylene glycoL POWDER 17 GM (MIRALAX) PACK PO SCH ×2 (08:57→21:44)
[2022-06-22] MEDS: ENOXAPARIN 40 MG/0.4 ML (LOVENOX) SYR SC SCH (08:59)
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
--- NOTE | 2022-06-22 09:13 | Occupational Ther Daily Note ---
OT Current Status-Daily Note Subjective Pt alert, sitting in w/c. Pt agrees to therapy. Nrsg in room to check pt's BP, pt becomes light headed with cuff squeezing L UE, nrsg to check at later time. No c/o pain. Mental Status/Objective Patient Orientation: Person, Place, Time, Situation Attachments: IV ADL-Treatment Sitting at sink, pt completes grooming and oral care independently prior to OT session (pt report). Supervision for transfer into shower. Sitting 100% of the time, pt completes shower using shower bench, grabbars and hand held shower. Mod A for transferring out of shower due to height difference b/t shower bench and w/c. Pt stated that he almost blacked out in shower but was able to get through it and stay conscious, nrsg aware. Independent with upper body dressing. Pt doffed lower body clothing by self then is able to thread clothing over feet and pull up legs then assist to hike over hips while pt completes arm chair pushup. Pt independent with donning/doffing regular socks and shoes. Therapy Code Descriptions/Definitions Functional [place] Measure: 0=Not Assessed/NA 4=Minimal Assistance 1=Total Assistance 5=Supervision or Setup 2=Maximal Assistance 6=Modified [place] 3=Moderate Assistance 7=Complete IndependenceSCALE: Activities may be completed with or without assistive devices. 5-Gqimymkelw-whiwxry completes the activity by him/herself with no assistance from a helper. 5-Set-up or Clean-up Assistance-helper sets up or cleans up; patient completes activity. [place] assists only prior to or following the activity. 4-Supervision or Touching Assistance-helper provides verbal cues and/or touching/steadying and/or contact guard assistance as patient completes activity. Assistance may be provided throughout the activity or intermittently. 3-Partial/Moderate Assistance-helper does LESS THAN HALF the effort. [place] lifts, holds or supports trunk or limbs, but provides less than half the effort. 2-Substantial/Maximal Assistance-helper does MORE THAN HALF the effort. [place] lifts or holds trunk or limbs and provides more than half the effort. 1-Xhldlqedq-fphhxe does ALL the effort. Patient does none of the effort to complete the activity. Or, the assistance of 2 or more helpers is required for the patient to complete the activity. If activity was not attempted, code reason: 7-Patient Refused. 9-Not Applicable-not attempted and the patient did not perform the activity before the current illness, exacerbation or injury. 10-Not Attempted due to Environmental Limitations-(lack of equipment, weather restraints, etc.). 88-Not Attempted due to Medical Conditions or Safety Concerns. Oral Hygiene (QC): 6 Shower/Bathe Self (QC): 6 Upper Body Dressing (QC): 6 Lower Body Dressing (QC): 3 On/Off Footwear: 6 Pt independent with self cathing. Other Treatment Pt completed a variety of B UE strengthening exercises using dowel kathy with 1#, 3# and against gravity to increase strength for daily functional tasks. After session, pt sitting in recliner with call light/phone in reach. All needs met in room. OT Short Term Goals Short Term Goals Time Frame: Jun 18, 2022 OT Firer Powerhouse Goals Firer Powerhouse Goals Time Frame: Jul 10, 2022 Acute change in mental status: 0 Inattention: 0 Disorganized thinkin Altered level of consciousness: 0 Eating (QC): 6 (met) Oral Hygiene (QC): 6 (met) Toileting Hygiene (QC): 6 (met) Shower/Bathe Self (QC): 6 (met) Upper Body Dressing (QC): 6 (met) Lower Body Dressing (QC): 6 (met) On/Off Footwear (QC): 6 (met) Additional Goals: 1-Demonstrate ADL Tasks, 2-Verbalize Understanding, 3- ImproveStrength/Lizeth 1=Demonstrate adherence to instructed precautions during ADL tasks. 2=Patient will verbalize/demonstrate understanding of assistive devices/modifications for ADL. 3=Patient will improve strength/tolerance for activity to enable patient to perform ADL's. OT Education/Plan Problem List/Assessment Assessment: Decreased Activ Tolerance, Decreased UE Strength, Impaired Funct B alance, Impaired Self-Care Skills Discharge Recommendations Plan/Recommendations: Continue POC Treatment Plan/Plan of Care Patient would benefit from OT for education, treatment and training to promote independence in ADL's, mobility, safety and/or upper extremity function for ADL's. Plan of Care: ADL Retraining, Functional Mobility, Group Exercise/Act as Ind, UE Funct Exercise/Act Treatment Duration: Jul 10, 2022 Frequency: At least 5 of 7 days/Wk (IRF) Estimated Hrs Per Day: 1.5 hours per day Agreement: Yes Rehab Potential: Fair Time Start Time: 08:48 Stop Time: 10:30 DATE: Jun 22, 2022 Total Time Billed (hr/min): 102 Billed Treatment Time 1 visit-ADL 5 (72 min) EX 2 (30 min) MACKENZIE DOMINGUEZ Jun 22, 2022 09:13
[2022-06-22 10:26] VITALS: BP 124/84
--- NOTE | 2022-06-22 11:24 | Physical Therapy Daily Note ---
PT Daily Note-Current Subjective Patient in pre tx, agrees to PT, has no complaints of pain. Pain Section J - Health Conditions 1. Rarely or not at all 2. Occasionally 3. Frequently 4. Almost constantly 8. Unable to answer Pain Effect on Sleep: 1 Pain Interference with Therapy: 1 Pain Interference w/Day-to-Day: 1 Appearance Patient in at bedside post tx with nurse call, phone, tray, all needs met. Mental Status Patient Orientation: Person, Place, Situation Transfers SCALE: Activities may be completed with or without assistive devices. 3-Nhonmsemzi-wgxvayk completes the activity by him/herself with no assistance from a helper. 5-Set-up or Clean-up Assistance-helper sets up or cleans up; patient completes activity. [place] assists only prior to or following the activity. 4-Supervision or Touching Assistance-helper provides verbal cues and/or touching/steadying and/or contact guard assistance as patient completes activi ty. Assistance may be provided throughout the activity or intermittently. 3-Partial/Moderate Assistance-helper does LESS THAN HALF the effort. [place] lifts, holds or supports trunk or limbs, but provides less than half the effort. 2-Substantial/Maximal Assistance-helper does MORE THAN HALF the effort. [place] lifts or holds trunk or limbs and provides more than half the effort. 9-Kyhjkudwa-tnbwjc does ALL the effort. Patient does none of the effort to complete the activity. Or, the assistance of 2 or more helpers is required for the patient to complete the activity. If activity was not attempted, code reason: 7-Patient Refused. 9-Not Applicable-not attempted and the patient did not perform the activity before the current illness, exacerbation or injury. 10-Not Attempted due to Environmental Limitations-(lack of equipment, weather restraints, etc.). 88-Not Attempted due to Medical Conditions or Safety Concerns. Roll Left & Right (QC): 6 Sit to Lying (QC): 6 Lying to Sitting/Side of Bed(Q: 6 Sit to Stand (QC): 4 Chair/Qny-ud-Rgjtg Xfer(QC): 4 Patient has some difficulty with supine <-> sit but can do it on his own, SBA for transfers and sit to stand but requires careful guarding during transfers. Patient transferred to therapy gym table for stretching and ROM and back to . Wheelchair Training Wheel 50 ft with 2 turns (QC): 6 Wheel 150 ft (QC): 6 Patient practiced going up and down a long ramp (arm strengthening) Exercises sit to stands in parallel bars 2 sets of 10, attempted to stand using a rolling walker but was unable. Therapist performed supine stretching on patient (glues, adductors, hamstrings, and prone 5 min hip stretch), supine manually resisted leg press x10 BLE Treatments stretching, WC mobility, strengthening, transfer training Assessment Current Status: Fair Progress educated patient on UE exercises using a theraband, and LE strengthening and stretching he can do at home PT Materials Buyer Goals Materials Buyer Goals PT Materials Buyer Goals Time Frame: Jun 30, 2022 Roll Left & Right (QC): 6 Sit to Lying (QC): 6 Lying-Sitting on Side/Bed(QC): 6 Sit to Stand (QC): 4 (CGA) Chair/Ruk-gz-Ibisz Xfer(QC): 4 (CGA) Toilet Transfer (QC): 4 (CGA) Car Transfer (QC): 4 (CGA) Does the Patient Walk: No and Walking Goal NOT indicated Walk 10 feet (QC): 9 Walk 50ft with 2 Turns (QC): 9 Walk 150 ft (QC): 9 Walking 10ft on Uneven Surface: 9 1 Step (curb) (QC): 9 4 Steps (QC): 9 12 Steps (QC): 9 Picking up an Object (QC): 9 Wheel 50 feet with 2 turns (QC: 6 Wheel 150 feet: 6 PT Plan Problem List Problem List: Activity Tolerance, Functional Strength, Safety, Balance, Gait, Transfer, Bed Mobility, ROM Treatment/Plan Treatment Plan: Continue Plan of Care Treatment Plan: Bed Mobility, Education, Functional Activity Lizeth, Functional Strength, Group Therapy, Safety, Therapeutic Exercise, Transfers Treatment Duration: Jun 30, 2022 Frequency: At least 5 of 7 days/Wk (IRF) Estimated Hrs Per Day: 1.5 hours per day Patient and/or Family Agrees t: Yes Safety Risks/Education Patient Education: Transfer Techniques, Correct Positioning, Safety Issues Teaching Recipient: Patient Teaching Methods: Demonstration, Discussion Response to Teaching: Reinforcement Needed Time Time In: 1030 Time Out: 1130 DATE: Jun 22, 2022 Total Billed Treatment Time: 60 Total Billed Treatment 1 visit EX 30' FA 30' EDGAR REYNOLDS PT Jun 22, 2022 11:24
[2022-06-22 12:08] LABS: BILIRUBIN,URINE NEGATIVE (NEGATIVE); CLARITY,URINE CLEAR; COLOR,URINE YELLOW; GLUCOSE, URINE (UA) NEGATIVE (NEGATIVE); KETONES,URINE NEGATIVE (NEGATIVE); LEUKOCYTE ESTERASE ,URINE 1+ (NEGATIVE); NITRITE,URINE NEGATIVE (NEGATIVE); PROTEIN,URINE TRACE (NEGATIVE)
[2022-06-22 12:35] LABS: BACTERIA,URINE LARGE /HPF; RBC,URINE RARE /HPF
[2022-06-22 12:36] LABS: AMORPHOUS SEDIMENT,UR MOD AMOR PHOSPHATE /LPF
--- NOTE | 2022-06-22 13:30 | Physical Therapy Daily Note ---
PT Daily Note-Current Subjective Patient in WC at bedside pre tx, agrees to PT, has no complaints of pain at rest. Pain Section J - Health Conditions 1. Rarely or not at all 2. Occasionally 3. Frequently 4. Almost constantly 8. Unable to answer Pain Effect on Sleep: 1 Pain Interference with Therapy: 1 Pain Interference w/Day-to-Day: 1 Appearance Patient in WC at bedside post tx with nurse call, phone, tray,all needs met. Mental Status Patient Orientation: Person, Place, Situation Transfers SCALE: Activities may be completed with or without assistive devices. 0-Wgppyvydnu-jhwsbwc completes the activity by him/herself with no assistance from a helper. 5-Set-up or Clean-up Assistance-helper sets up or cleans up; patient completes activity. [place] assists only prior to or following the activity. 4-Supervision or Touching Assistance-helper provides verbal cues and/or touching/steadying and/or contact guard assistance as patient completes activity. Assistance may be provided throughout the activity or intermittently. 3-Partial/Moderate Assistance-helper does LESS THAN HALF the effort. [place] lifts, holds or supports trunk or limbs, but provides less than half the effort. 2-Substantial/Maximal Assistance-helper does MORE THAN HALF the effort. [place] lifts or holds trunk or limbs and provides more than half the effort. 0-Ilmaxppop-yemryj does ALL the effort. Patient does none of the effort to complete the activity. Or, the assistance of 2 or more helpers is required for the patient to complete the activity. If activity was not attempted, code reason: 7-Patient Refused. 9-Not Applicable-not attempted and the patient did not perform the activity before the current illness, exacerbation or injury. 10-Not Attempted due to Environmental Limitations-(lack of equipment, weather restraints, etc.). 88-Not Attempted due to Medical Conditions or Safety Concerns. Roll Left & Right (QC): 6 Sit to Lying (QC): 4 Lying to Sitting/Side of Bed(Q: 4 Chair/Tcc-jm-Hlwaf Xfer(QC): 4 Patient transfers to therapy table and lays down, therapist stretching BLE (glutes, adductors, hamstring, calves) Exercises sit to stands at parallel bars 1 set of 10, 1 set of 5, 1 set of 7 Treatments stretching, strengthening Assessment Current Status: Fair Progress improving LE strength after getting weaker during the weekend PT Floor Cashier Goals Custodial Goals PT Custodial Goals Time Frame: Jun 30, 2022 Roll Left & Right (QC): 6 Sit to Lying (QC): 6 Lying-Sitting on Side/Bed(QC): 6 Sit to Stand (QC): 4 (CGA) Chair/Xyh-qv-Qihun Xfer(QC): 4 (CGA) Toilet Transfer (QC): 4 (CGA) Car Transfer (QC): 4 (CGA) Does the Patient Walk: No and Walking Goal NOT indicated Walk 10 feet (QC): 9 Walk 50ft with 2 Turns (QC): 9 Walk 150 ft (QC): 9 Walking 10ft on Uneven Surface: 9 1 Step (curb) (QC): 9 4 Steps (QC): 9 12 Steps (QC): 9 Picking up an Object (QC): 9 Wheel 50 feet with 2 turns (QC: 6 Wheel 150 feet: 6 PT Plan Problem List Problem List: Activity Tolerance, Functional Strength, Safety, Balance, Gait, Transfer, Bed Mobility, ROM Treatment/Plan Treatment Plan: Continue Plan of Care Treatment Plan: Bed Mobility, Education, Functional Activity Lizeth, Functional Strength, Group Therapy, Safety, Therapeutic Exercise, Transfers Treatment Duration: Jun 30, 2022 Frequency: At least 5 of 7 days/Wk (IRF) Estimated Hrs Per Day: 1.5 hours per day Patient and/or Family Agrees t: Yes Safety Risks/Education Patient Education: Transfer Techniques, Correct Positioning, W/C Management, Safety Issues Teaching Recipient: Patient Teaching Methods: Demonstration, Discussion Response to Teaching: Reinforcement Needed Time Time In: 1300 Time Out: 1330 DATE: Jun 22, 2022 Total Billed Treatment Time: 30 Total Billed Treatment 1 visit EX 30' EDGAR REYNOLDS PT Jun 22, 2022 13:30
[2022-06-22 20:42] VITALS: BP 110/58
[2022-06-22] MEDS: CATHETER FLUSH 10 ML SYR IVP SCH (21:32)
--- NOTE | 2022-06-23 05:28 | PM&R Progress Note ---
Subjective HPI/CC On Admission Date Seen by Provider: Jun 23, 2022 Time Seen by Provider: 09:00 Subjective/Events-last exam 06/23/2022: Doing well Very despondent at times Celexa will be started Retention noted No pain 06/22/2022: Having issues with his urinary stream UA not revealing but will wait for final culture No pain reported 06/21/2022: Talked about lambert catheter and retention issue Monitor closely and stop Oxybutynin No other issues 06/20/2022: No major issues Lambert cath still in place until his home condom catheter is brought from home Awaiting visitor today 06/19/2022: Doing well Working with PT Increasing strength Condom catheter will be brought from home to use 06/18/2022: Doing very well No pain reported BM regimen ordered IV abx maintained Working hard in therapy 06/17/2022: Doing well Improved in therapy already Likely short course here in ARU No pain reported BM regimen ordered as he does at home In out caths will be initiated after lambert DC Review of Systems General: Fatigue, Malaise Focused Exam Lactate Level 06/22/22 11:44: Lactic Acid Level 1.30 Objective Exam Vital Signs Vital Signs Date Time Temp Pulse Resp B/P (MAP) Pulse Ox O2 Delivery O2 Flow Rate FiO2 06/23/22 20:20 Room Air 06/23/22 19:40 36.9 76 20 100/58 (72) 98 Capillary Refill : General Appearance: No Apparent Distress, WD/WN, Chronically ill, Thin HEENT: PERRL/EOMI, Normal ENT Inspection, Pharynx Normal Neck: Full Range of Motion, Normal Inspection, Non Tender, Supple, Carotid Brui t Respiratory: Chest Non Tender, Lungs Clear, Normal Breath Sounds, No Accessory Muscle Use, No Respiratory Distress Cardiovascular: Regular Rate, Rhythm, No Edema, No Gallop, No JVD, No Murmur, Normal Peripheral Pulses Gastrointestinal: Normal Bowel Sounds, No Organomegaly, No Pulsatile Mass, Non Tender, Soft Back: Normal Inspection, No CVA Tenderness, No Vertebral Tenderness Extremity: Normal Capillary Refill, Normal Inspection, Normal Range of Motion, Non Tender, No Calf Tenderness, No Pedal Edema Neurologic/Psychiatric: Alert, Oriented x3, Normal Mood/Affect, life care planner II-XII Norm as Tested, Depressed Affect, Motor Weakness (bilateral lower extremities) Skin: Normal Color, Warm/Dry Lymphatic: No Adenopathy Results/Procedures Lab Patient resulted labs reviewed. FIM Transfers Therapy Code Descriptions/Definitions Functional [place] Measure: 0=Not Assessed/NA 4=Minimal Assistance 1=Total Assistance 5=Supervision or Setup 2=Maximal Assistance 6=Modified [place] 3=Moderate Assistance 7=Complete IndependenceSCALE: Activities may be completed with or without assistive devices. 4-Dbcubnpbda-nshmlyg completes the activity by him/herself with no assistance from a helper. 5-Set-up or Clean-up Assistance-helper sets up or cleans up; patient completes activity. [place] assists only prior to or following the activity. 4-Supervision or Touching Assistance-helper provides verbal cues and/or touching/steadying and/or contact guard assistance as patient completes activity. Assistance may be provided throughout the activity or intermittently. 3-Partial/Moderate Assistance-helper does LESS THAN HALF the effort. [place] lifts, holds or supports trunk or limbs, but provides less than half the effort. 2-Substantial/Maximal Assistance-helper does MORE THAN HALF the effort. [place] lifts or holds trunk or limbs and provides more than half the effort. 8-Reumjnosi-ynxgye does ALL the effort. Patient does none of the effort to complete the activity. Or, the assistance of 2 or more helpers is required for the patient to complete the activity. If activity was not attempted, code reason: 7-Patient Refused. 9-Not Applicable-not attempted and the patient did not perform the activity before the current illness, exacerbation or injury. 10-Not Attempted due to Environmental Limitations-(lack of equipment, weather restraints, etc.). 88-Not Attempted due to Medical Conditions or Safety Concerns. Roll Left to Right (QC): 6 Sit to Lying (QC): 4 Sit to Stand (QC): 4 Chair/Ast-ix-Fgbat Xfer(QC): 4 Car Transfer (QC): 2 Gait Training Does the Patient Walk?: No and Walking Goal NOT indicated Walk 10 feet (QC): 9 Walk 50 ft with 2 Turns(QC): 9 Walk 150 ft (QC): 9 Walking 10ft/uneven surface-QC: 9 Wheelchair Training Does the Pt Use a Wheelchair?: Yes Distance: 200'x2 Wheel 50 ft with 2 turns (QC): 6 Wheel 150 ft (QC): 6 Type of Wheelchair: Manual Stair Training 1 Step (curb) (QC): 9 4 Steps (QC): 9 12 Steps (QC): 9 Balance Picking up an Object (QC): 9 ADL-Treatment Eating (QC): 5 Oral Hygiene (QC): 6 Shower/Bathe Self (QC): 6 Upper Body Dressing (QC): 6 Lower Body Dressing (QC): 3 On/Off Footwear (QC): 6 Toileting Hygiene (QC): 2 Toilet Transfer (QC): 1 Assessment/Plan Assessment and Plan Assess & Plan/Chief Complaint Assessment: Debility from renal cell carcinoma chemotherapy treatment Acute endocarditis placed on Cefazolin1 grams IV Q8 hours for 6 weeks Remote hx of C3 spinal cord injury CKD Anemia Weight loss h/o decubitus ulcers Neurogenic bladder performs in out caths Urinary retention since lambert cath DC and he was on Oxybutynin which has been DC'ed Depression started Celexa Plan: Pain control In/out caths Lab monitoring Cardiology consultation Lab monitoring 06/17/2022: Monitor closely Fall risk 06/18/2022: Refuses to DC Lambert Monitor closely 06/19/2022: Monitor closely Lambert DC once condom catheter brought from home 06/20/2022: Monitor closely Lambert DC soon 06/21/2022: Monitor retention 06/22/2022: In/Out caths Monitor urinary issues 06/23/2022: Monitor closely In out caths Start anti-depressant (1) Debility (2) Endocarditis (3) Renal cell carcinoma (4) Weight loss (5) C3 spinal cord injury MELI THOMAS DO Jun 23, 2022 05:28
[2022-06-23] MEDS: ceFAZolin INJECTION 2,000 MG in NS (IVPB) 50 ML IV SCH ×3 (06:00→21:08)
[2022-06-23] MEDS: CATHETER FLUSH 10 ML SYR IVP SCH ×3 (06:46→21:10)
[2022-06-23 08:00] VITALS: BP 104/73
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
[2022-06-23] MEDS: polyethylene glycoL POWDER 17 GM (MIRALAX) PACK PO SCH ×2 (08:38→21:17)
[2022-06-23] MEDS: LACTOBACILLUS ACIDOPHILUS (PROBIOTIC) CAPSULE PO SCH ×2 (08:38→21:08)
[2022-06-23] MEDS: DOCUSATE SODIUM 100 MG (COLACE) CAP PO SCH ×2 (08:38→21:08)
[2022-06-23] MEDS: SENNA W/DOCUSATE (SENOKOT S) TABLET PO SCH ×2 (08:38→21:08)
[2022-06-23] MEDS: ENOXAPARIN 40 MG/0.4 ML (LOVENOX) SYR SC SCH (08:38)
--- NOTE | 2022-06-23 09:55 | Occupational Ther Daily Note ---
OT Current Status-Daily Note Subjective Pt alert, sitting in w/c. Pt agrees to therapy. No c/o pain. Mental Status/Objective Patient Orientation: Person, Place, Time, Situation Attachments: IV ADL-Treatment Pt declines shower and has already completed other ADLs necessary to get ready for the day. Therapy Code Descriptions/Definitions Functional [place] Measure: 0=Not Assessed/NA 4=Minimal Assistance 1=Total Assistance 5=Supervision or Setup 2=Maximal Assistance 6=Modified [place] 3=Moderate Assistance 7=Complete IndependenceSCALE: Activities may be completed with or without assistive devices. 6-Vrfzrmldrr-bpiireq completes the activity by him/herself with no assistance from a helper. 5-Set-up or Clean-up Assistance-helper sets up or cleans up; patient completes activity. [place] assists only prior to or following the activity. 4-Supervision or Touching Assistance-helper provides verbal cues and/or touching/steadying and/or contact guard assistance as patient completes activity. Assistance may be provided throughout the activity or intermittently. 3-Partial/Moderate Assistance-helper does LESS THAN HALF the effort. [place] lifts, holds or supports trunk or limbs, but provides less than half the effort. 2-Substantial/Maximal Assistance-helper does MORE THAN HALF the effort. [place] l ifts or holds trunk or limbs and provides more than half the effort. 4-Dpcexxgui-jefrsr does ALL the effort. Patient does none of the effort to complete the activity. Or, the assistance of 2 or more helpers is required for the patient to complete the activity. If activity was not attempted, code reason: 7-Patient Refused. 9-Not Applicable-not attempted and the patient did not perform the activity before the current illness, exacerbation or injury. 10-Not Attempted due to Environmental Limitations-(lack of equipment, weather restraints, etc.). 88-Not Attempted due to Medical Conditions or Safety Concerns. Other Treatment Pt propels w/c to/from therapy gym/room independently. Pt completed gross motor for B hand and UE to increase strength and stamina for daily functional tasks. Pt required recovery breaks intermittently throughout each exercise, increased resistance to each task was applied. [place] kathy exercises-varying amount of sets to equal 30 reps. Arm/shldr pulleys for 3 min 50 secs completed for stretch of B UE after exercises. Pt then completed slide board transfer to/from bed/w/c to work on independence and safety. Pt able to place and completed transfer with SBA except 1x. Pt had not placed board securely on w/c cushion and slide board slid off of cushion, pt able to continue with transfer though [place] stabilized board. Pt verbalized then demonstrated understanding of correct placement of board after. After session, pt sitting in w/c in room with call light/phone in reach. All needs met in room. OT Short Term Goals Short Term Goals Time Frame: Jun 18, 2022 OT Half-Way Goals Half-Way Goals Time Frame: Jul 10, 2022 Acute change in mental status: 0 Inattention: 0 Disorganized thinkin Altered level of consciousness: 0 Eating (QC): 6 (met) Oral Hygiene (QC): 6 (met) Toileting Hygiene (QC): 6 (met) Shower/Bathe Self (QC): 6 (met) Upper Body Dressing (QC): 6 (met) Lower Body Dressing (QC): 6 (met) On/Off Footwear (QC): 6 (met) Additional Goals: 1-Demonstrate ADL Tasks, 2-Verbalize Understanding, 3-I mproveStrength/Lizeth 1=Demonstrate adherence to instructed precautions during ADL tasks. 2=Patient will verbalize/demonstrate understanding of assistive devices/modifications for ADL. 3=Patient will improve strength/tolerance for activity to enable patient to perform ADL's. OT Education/Plan Problem List/Assessment Assessment: Decreased Activ Tolerance, Decreased UE Strength, Impaired Self- Care Skills, Restricted Funct UE ROM Discharge Recommendations Plan/Recommendations: Continue POC Treatment Plan/Plan of Care Patient would benefit from OT for education, treatment and training to promote independence in ADL's, mobility, safety and/or upper extremity function for ADL's. Plan of Care: ADL Retraining, Functional Mobility, Group Exercise/Act as Ind, UE Funct Exercise/Act Treatment Duration: Jul 10, 2022 Frequency: At least 5 of 7 days/Wk (IRF) Estimated Hrs Per Day: 1.5 hours per day Agreement: Yes Rehab Potential: Fair Time Start Time: 09:00 Stop Time: 10:00 DATE: Jun 23, 2022 Total Time Billed (hr/min): 60 Billed Treatment Time 1 visit-EX 3 (45 min) FA 1 (15 min) MACKENZIE DOMINGUEZ Jun 23, 2022 09:55
--- NOTE | 2022-06-23 10:55 | Physical Therapy Daily Note ---
PT Daily Note-Current Subjective Patient in at bedside pre tx, agrees to PT, has no complaints of pain. Pain Section J - Health Conditions 1. Rarely or not at all 2. Occasionally 3. Frequently 4. Almost constantly 8. Unable to answer Pain Effect on Sleep: 1 Pain Interference with Therapy: 1 Pain Interference w/Day-to-Day: 1 Appearance Patient in at bedside post tx with nurse call, phone, tray, all needs met. Mental Status Patient Orientation: Normal For Age Transfers SCALE: Activities may be completed with or without assistive devices. 1-Dmkvgemwsw-cafjmaa completes the activity by him/herself with no assistance from a helper. 5-Set-up or Clean-up Assistance-helper sets up or cleans up; patient completes activity. [place] assists only prior to or following the activity. 4-Supervision or Touching Assistance-helper provides verbal cues and/or touching/steadying and/or contact guard assistance as patient completes activ ity. Assistance may be provided throughout the activity or intermittently. 3-Partial/Moderate Assistance-helper does LESS THAN HALF the effort. [place] lifts, holds or supports trunk or limbs, but provides less than half the effort. 2-Substantial/Maximal Assistance-helper does MORE THAN HALF the effort. [place] lifts or holds trunk or limbs and provides more than half the effort. 9-Erqtpmlqh-gjvnhp does ALL the effort. Patient does none of the effort to complete the activity. Or, the assistance of 2 or more helpers is required for the patient to complete the activity. If activity was not attempted, code reason: 7-Patient Refused. 9-Not Applicable-not attempted and the patient did not perform the activity before the current illness, exacerbation or injury. 10-Not Attempted due to Environmental Limitations-(lack of equipment, weather restraints, etc.). 88-Not Attempted due to Medical Conditions or Safety Concerns. Roll Left & Right (QC): 6 Sit to Lying (QC): 4 Lying to Sitting/Side of Bed(Q: 4 Chair/Ykm-rw-Ittkz Xfer(QC): 4 Patient transfers to therapy table, lays down without assist (SBA), patient's BLE are stretched (glutes, adductors, hamstrings), he rolls prone for 5 min hip stretch, rolls back, supine to sit with SBA, and transfers back to with SBA (lower to higher surface). Wheelchair Training Does the Pt Use a Wheelchair?: Yes Type of Wheelchair: Manual Patient practices going up and down long ramps x2 (working on arm strength) Exercises manually resisted leg press 3 sets of 10, sit to merchandising intern the parallel bars 2 sets of 10, also stood on his own for several minutes, no assist needed for sit to stand Treatments bed mobility and transfers, stretching, strengthening, WC mobility Assessment Current Status: Fair Progress improved transfers PT Fdc Goals Ditcher Operator Goals PT Fdc Goals Time Frame: Jun 30, 2022 Roll Left & Right (QC): 6 Sit to Lying (QC): 6 Lying-Sitting on Side/Bed(QC): 6 Sit to Stand (QC): 4 (CGA) Chair/Ybw-td-Jktgn Xfer(QC): 4 (CGA) Toilet Transfer (QC): 4 (CGA) Car Transfer (QC): 4 (CGA) Does the Patient Walk: No and Walking Goal NOT indicated Walk 10 feet (QC): 9 Walk 50ft with 2 Turns (QC): 9 Walk 150 ft (QC): 9 Walking 10ft on Uneven Surface: 9 1 Step (curb) (QC): 9 4 Steps (QC): 9 12 Steps (QC): 9 Picking up an Object (QC): 9 Wheel 50 feet with 2 turns (QC: 6 Wheel 150 feet: 6 PT Plan Problem List Problem List: Activity Tolerance, Functional Strength, Safety, Balance, Transfer, Bed Mobility, ROM Treatment/Plan Treatment Plan: Continue Plan of Care Treatment Plan: Bed Mobility, Education, Functional Activity Lizeth, Functional Strength, Group Therapy, Safety, Therapeutic Exercise, Transfers Treatment Duration: Jun 30, 2022 Frequency: At least 5 of 7 days/Wk (IRF) Estimated Hrs Per Day: 1.5 hours per day Patient and/or Family Agrees t: Yes Safety Risks/Education Patient Education: Transfer Techniques, Correct Positioning, W/C Management, Safety Issues Teaching Recipient: Patient Teaching Methods: Demonstration, Discussion Response to Teaching: Reinforcement Needed Time Time In: 1000 Time Out: 1100 DATE: Jun 23, 2022 Total Billed Treatment Time: 60 Total Billed Treatment 1 visit EX 30' FA 30' EDGAR REYNOLDS PT Jun 23, 2022 10:55
--- NOTE | 2022-06-23 13:27 | Occupational Ther Daily Note ---
OT Current Status-Daily Note Subjective Pt alert, sitting in w/c. Pt agrees to therapy. Pt c/o extreme fatigue and having difficulty with completing therapy today. Mental Status/Objective Patient Orientation: Person, Place, Time, Situation Attachments: IV ADL-Treatment Therapy Code Descriptions/Definitions Functional [place] Measure: 0=Not Assessed/NA 4=Minimal Assistance 1=Total Assistance 5=Supervision or Setup 2=Maximal Assistance 6=Modified [place] 3=Moderate Assistance 7=Complete IndependenceSCALE: Activities may be completed with or without assistive devices. 4-Ejqumnqmql-pqtbbax completes the activity by him/herself with no assistance from a helper. 5-Set-up or Clean-up Assistance-helper sets up or cleans up; patient completes activity. [place] assists only prior to or following the activity. 4-Supervision or Touching Assistance-helper provides verbal cues and/or touching/steadying and/or contact guard assistance as patient completes activity. Assistance may be provided throughout the activity or intermittently. 3-Partial/Moderate Assistance-helper does LESS THAN HALF the effort. [place] lifts, holds or supports trunk or limbs, but provides less than half the effort. 2-Substantial/Maximal Assistance-helper does MORE THAN HALF the effort. [place] lifts or holds trunk or limbs and provides more than half the effort. 7-Zvcafvopd-jgxmns does ALL the effort. Patient does none of the effort to complete the activity. Or, the assistance of 2 or more helpers is required for the patient to complete the activity. If activity was not attempted, code reason: 7-Patient Refused. 9-Not Applicable-not attempted and the patient did not perform the activity before the current illness, exacerbation or injury. 10-Not Attempted due to Environmental Limitations-(lack of equipment, weather restraints, etc.). 88-Not Attempted due to Medical Conditions or Safety Concerns. Other Treatment Pt completed arm bike for 4 min with multiple recovery breaks. Pt's increased fatigue hindered amount and type of exercises that was completed today. Pt then completed BUE AROM while completing gravity eliminated task which pt required multiple breaks to complete. Pt then propelled w/c back to room. SBA for safety while pt completed slide board transfer from w/c to bed. Assist to lift B LE's into bed. After session, pt lying in bed with call light/phone in reach. All needs met in room. OT Short Term Goals Short Term Goals Time Frame: Jun 18, 2022 OT Special Education Teacher Goals Assisted Goals Time Frame: Jul 10, 2022 Acute change in mental status: 0 Inattention: 0 Disorganized thinkin Altered level of consciousness: 0 Eating (QC): 6 (met) Oral Hygiene (QC): 6 (met) Toileting Hygiene (QC): 6 (met) Shower/Bathe Self (QC): 6 (met) Upper Body Dressing (QC): 6 (met) Lower Body Dressing (QC): 6 (met) On/Off Footwear (QC): 6 (met) Additional Goals: 1-Demonstrate ADL Tasks, 2-Verbalize Understanding, 3- ImproveStrength/Lizeth 1=Demonstrate adherence to instructed precautions during ADL tasks. 2=Patient will verbalize/demonstrate understanding of assistive devices/modifications for ADL. 3=Patient will improve strength/tolerance for activity to enable patient to perform ADL's. OT Education/Plan Problem List/Assessment Assessment: Decreased Activ Tolerance, Decreased UE Strength Discharge Recommendations Plan/Recommendations: Continue POC Treatment Plan/Plan of Care Patient would benefit from OT for education, treatment and training to promote independence in ADL's, mobility, safety and/or upper extremity function for ADL's. Plan of Care: ADL Retraining, Functional Mobility, Group Exercise/Act as Ind, UE Funct Exercise/Act Treatment Duration: Jul 10, 2022 Frequency: At least 5 of 7 days/Wk (IRF) Estimated Hrs Per Day: 1.5 hours per day Agreement: Yes Rehab Potential: Fair Time Start Time: 13:00 Stop Time: 13:30 DATE: Jun 23, 2022 Total Time Billed (hr/min): 30 Billed Treatment Time 1 visit-EX 2 (15 min) FA 2 (15 min) MACKENZIE DOMINGUEZ Jun 23, 2022 13:26
[2022-06-23 14:04] VITALS: BP 130/82
--- NOTE | 2022-06-23 16:27 | Physical Therapy Progress Note ---
Therapy Progress Note SUPERMARKET MANAGER arrives for tx at 1500 & pt is sitting in [facility] w/SO present. Pt reports given anti-depressant earlier and it has affected pt in such as way that he is drowsy/tired and feels like he cannot complete tasks. Pt reports barely able to make it through OT after lunch. SUPERMARKET MANAGER prepares 6 written HEP EX focused on stretching for pt to use. SUPERMARKET MANAGER tries to review these EX but pt reports "not feeling up to it right now". Pt is laying Supine in bed at end of tx. All needs met, call light next to pt & SO is still present. Tx: [id number] 1, FA x2 (30m) PATY MCKAY PTA Jun 23, 2022 16:27
[2022-06-23 19:40] VITALS: BP 100/58
[2022-06-24] MEDS: CATHETER FLUSH 10 ML SYR IVP SCH ×3 (06:10→21:43)
[2022-06-24] MEDS: ceFAZolin INJECTION 2,000 MG in NS (IVPB) 50 ML IV SCH ×3 (06:11→21:35)
[2022-06-24 08:00] VITALS: BP 107/69
--- NOTE | 2022-06-24 08:05 | PM&R Progress Note ---
Subjective HPI/CC On Admission Date Seen by Provider: Jun 24, 2022 Time Seen by Provider: 13:30 Subjective/Events-last exam 06/24/2022: Improved status Refuses Celexa since it put him to sleep Very frustrated with multiple facets of his care but will continue to be supportive 06/23/2022: Doing well Very despondent at times Celexa will be started Retention noted No pain 06/22/2022: Having issues with his urinary stream UA not revealing but will wait for final culture No pain reported 06/21/2022: Talked about lambert catheter and retention issue Monitor closely and stop Oxybutynin No other issues 06/20/2022: No major issues Lambert cath still in place until his home condom catheter is brought from home Awaiting visitor today 06/19/2022: Doing well Working with PT Increasing strength Condom catheter will be brought from home to use 06/18/2022: Doing very well No pain reported BM regimen ordered IV abx maintained Working hard in therapy 06/17/2022: Doing well Improved in therapy already Likely short course here in ARU No pain reported BM regimen ordered as he does at home In out caths will be initiated after lambert DC Review of Systems General: Fatigue, Malaise Focused Exam Lactate Level 06/22/22 11:44: Lactic Acid Level 1.30 Objective Exam Vital Signs Vital Signs Date Time Temp Pulse Resp B/P (MAP) Pulse Ox O2 Delivery O2 Flow Rate FiO2 06/24/22 20:20 Room Air 06/24/22 20:05 37.1 78 20 147/77 (100) 96 Capillary Refill : General Appearance: No Apparent Distress, WD/WN, Chronically ill, Thin HEENT: PERRL/EOMI, Normal ENT Inspection, Pharynx Normal Neck: Full Range of Motion, Normal Inspection, Non Tender, Supple, Carotid Bruit Respiratory: Chest Non Tender, Lungs Clear, Normal Breath Sounds, No Accessory Muscle Use, No Respiratory Distress Cardiovascular: Regular Rate, Rhythm, No Edema, No Gallop, No JVD, No Murmur, Normal Peripheral Pulses Gastrointestinal: Normal Bowel Sounds, No Organomegaly, No Pulsatile Mass, Non Tender, Soft Back: Normal Inspection, No CVA Tenderness, No Vertebral Tenderness Extremity: Normal Capillary Refill, Normal Inspection, Normal Range of Motion, Non Tender, No Calf Tenderness, No Pedal Edema Neurologic/Psychiatric: Alert, Oriented x3, Normal Mood/Affect, diagnostic medical sonographer II-XII Norm as Tested, Depressed Affect, Motor Weakness (bilateral lower extremities) Skin: Normal Color, Warm/Dry Lymphatic: No Adenopathy Results/Procedures Lab Patient resulted labs reviewed. FIM Transfers Therapy Code Descriptions/Definitions Functional [place] Measure: 0=Not Assessed/NA 4=Minimal Assistance 1=Total Assistance 5=Supervision or Setup 2=Maximal Assistance 6=Modified [place] 3=Moderate Assistance 7=Complete IndependenceSCALE: Activities may be completed with or without assistive devices. 7-Dbhaeywfru-xmmuheq completes the activity by him/herself with no assistance from a helper. 5-Set-up or Clean-up Assistance-helper sets up or cleans up; patient completes activity. [place] assists only prior to or following the activity. 4-Supervision or Touching Assistance-helper provides verbal cues and/or touching/steadying and/or contact guard assistance as patient completes activity. Assistance may be provided throughout the activity or intermittently. 3-Partial/Moderate Assistance-helper does LESS THAN HALF the effort. [place] lifts, holds or supports trunk or limbs, but provides less than half the effort. 2-Substantial/Maximal Assistance-helper does MORE THAN HALF the effort. [place] lifts or holds trunk or limbs and provides more than half the effort. 4-Kntqizsgi-xjtxzz does ALL the effort. Patient does none of the effort to complete the activity. Or, the assistance of 2 or more helpers is required for the patient to complete the activity. If activity was not attempted, code reason: 7-Patient Refused. 9-Not Applicable-not attempted and the patient did not perform the activity before the current illness, exacerbation or injury. 10-Not Attempted due to Environmental Limitations-(lack of equipment, weather restraints, etc.). 88-Not Attempted due to Medical Conditions or Safety Concerns. Roll Left to Right (QC): 6 Sit to Lying (QC): 4 Sit to Stand (QC): 4 Chair/Ldg-gy-Fxvol Xfer(QC): 4 Car Transfer (QC): 2 Gait Training Does the Patient Walk?: No and Walking Goal NOT indicated Walk 10 feet (QC): 9 Walk 50 ft with 2 Turns(QC): 9 Walk 150 ft (QC): 9 Walking 10ft/uneven surface-QC: 9 Wheelchair Training Does the Pt Use a Wheelchair?: Yes Distance: 200'x2 Wheel 50 ft with 2 turns (QC): 6 Wheel 150 ft (QC): 6 Type of Wheelchair: Manual Stair Training 1 Step (curb) (QC): 9 4 Steps (QC): 9 12 Steps (QC): 9 Balance Picking up an Object (QC): 9 ADL-Treatment Eating (QC): 5 Oral Hygiene (QC): 6 Shower/Bathe Self (QC): 6 Upper Body Dressing (QC): 6 Lower Body Dressing (QC): 3 On/Off Footwear (QC): 6 Toileting Hygiene (QC): 2 Toilet Transfer (QC): 1 Assessment/Plan Assessment and Plan Assess & Plan/Chief Complaint Assessment: Debility from renal cell carcinoma chemotherapy treatment Acute endocarditis placed on Cefazolin1 grams IV Q8 hours for 6 weeks Remote hx of C3 spinal cord injury CKD Anemia Weight loss h/o decubitus ulcers Neurogenic bladder performs in out caths Urinary retention since lambert cath DC and he was on Oxybutynin which has been DC'ed Depression started Celexa Plan: Pain control In/out caths Lab monitoring Cardiology consultation Lab monitoring 06/17/2022: Monitor closely Fall risk 06/18/2022: Refuses to DC Lambert Monitor closely 06/19/2022: Monitor closely Lambert DC once condom catheter brought from home 06/20/2022: Monitor closely Lambert DC soon 06/21/2022: Monitor retention 06/22/2022: In/Out caths Monitor urinary issues 06/23/2022: Monitor closely In out caths Start anti-depressant 06/24/2022: DC Celexa (1) Debility (2) Endocarditis (3) Renal cell carcinoma (4) Weight loss (5) C3 spinal cord injury MELI THOMAS DO Jun 24, 2022 08:05
--- NOTE | 2022-06-24 08:11 | Occupational Ther Daily Note ---
OT Current Status-Daily Note Subjective Pt alert, sitting in w/c. Pt c/o fatigue and feeling weak. Report to nrsg. Pt agrees to therapy. Mental Status/Objective Patient Orientation: Person, Place, Time, Situation Attachments: IV ADL-Treatment Pt agrees to therapy. Pt independent with doffing clothing. Pt gathers clothing/supplies at w/c level independently. Using sliding board, pt able to transfer into shower by self. Pt states that he has been using slide board transfer in/out of bed independently. Independent taking shower sitting on shower bench 100% of the time. Pt has shower bench at home in walk-in shower, pt will be able to transfer independently. Independent with oral care. Set up to open small containers then uses regular utensils to eat. Independent with UBD. Pt threads feet into pants over feet Therapy Code Descriptions/Definitions Functional [place] Measure: 0=Not Assessed/NA 4=Minimal Assistance 1=Total Assistance 5=Supervision or Setup 2=Maximal Assistance 6=Modified [place] 3=Moderate Assistance 7=Complete IndependenceSCALE: Activities may be completed with or without assistive devices. 8-Jhypdxcfec-uxzycsn completes the activity by him/herself with no assistance from a helper. 5-Set-up or Clean-up Assistance-helper sets up or cleans up; patient completes activity. [place] assists only prior to or following the activity. 4-Supervision or Touching Assistance-helper provides verbal cues and/or touching/steadying and/or contact guard assistance as patient completes activity. Assistance may be provided throughout the activity or intermittently. 3-Partial/Moderate Assistance-helper does LESS THAN HALF the effort. [place] lifts, holds or supports trunk or limbs, but provides less than half the effort. 2-Substantial/Maximal Assistance-helper does MORE THAN HALF the effort. [place] lifts or holds trunk or limbs and provides more than half the effort. 2-Oesujxvbw-atozvi does ALL the effort. Patient does none of the effort to complete the activity. Or, the assistance of 2 or more helpers is required for the patient to complete the activity. If activity was not attempted, code reason: 7-Patient Refused. 9-Not Applicable-not attempted and the patient did not perform the activity before the current illness, exacerbation or injury. 10-Not Attempted due to Environmental Limitations-(lack of equipment, weather restraints, etc.). 88-Not Attempted due to Medical Conditions or Safety Concerns. Eating (QC): 5 Oral Hygiene (QC): 6 Shower/Bathe Self (QC): 6 Upper Body Dressing (QC): 6 Lower Body Dressing (QC): 3 (min A) On/Off Footwear: 6 Other Treatment Pt given B UE HEP using medium resistance theraband for use when not in therapy and at home. Pt c/o fatigue, decreased sets for modification. Skilled instruction for correct technique and modifications when necessary. Pt demonstrated understanding and will review one more time to make sure of independence with exercises. After session, pt sitting in w/c with call light/phone in reach. All needs met in room. Education OT Patient Education: Exercise program, Home exercise program Teaching Recipient: Patient Teaching Methods: Demonstration, Discussion Response to Teaching: Verbalize Understanding, Return Demonstration, Reinforcement Needed OT Short Term Goals Short Term Goals Time Frame: Jun 18, 2022 OT Director Of Math Goals Director Of Math Goals Time Frame: Jul 10, 2022 Acute change in mental status: 0 Inattention: 0 Disorganized thinkin Altered level of consciousness: 0 Eating (QC): 6 (met) Oral Hygiene (QC): 6 (met) Toileting Hygiene (QC): 6 (met) Shower/Bathe Self (QC): 6 (met) Upper Body Dressing (QC): 6 (met) Lower Body Dressing (QC): 6 (met) On/Off Footwear (QC): 6 (met) Additional Goals: 1-Demonstrate ADL Tasks, 2-Verbalize Understanding, 3- ImproveStrength/Lizeth 1=Demonstrate adherence to instructed precautions during ADL tasks. 2=Patient will verbalize/demonstrate understanding of assistive devices/modifications for ADL. 3=Patient will improve strength/tolerance for activity to enable patient to perform ADL's. OT Education/Plan Problem List/Assessment Assessment: Decreased Activ Tolerance, Decreased UE Strength, Impaired Self- Care Skills, Restricted Funct UE ROM Discharge Recommendations Plan/Recommendations: Continue POC Treatment Plan/Plan of Care Patient would benefit from OT for education, treatment and training to promote independence in ADL's, mobility, safety and/or upper extremity function for ADL's. Plan of Care: ADL Retraining, Functional Mobility, Group Exercise/Act as Ind, UE Funct Exercise/Act Treatment Duration: Jul 10, 2022 Frequency: At least 5 of 7 days/Wk (IRF) Estimated Hrs Per Day: 1.5 hours per day Agreement: Yes Rehab Potential: Fair Time Start Time: 08:00 Stop Time: 09:00 DATE: Jun 24, 2022 Total Time Billed (hr/min): 60 Billed Treatment Time 1 visit-ADL 3 (45 min) EX 1 (15 min) MACKENZIE DOMINGUEZ Jun 24, 2022 08:11
[2022-06-24] MEDS: polyethylene glycoL POWDER 17 GM (MIRALAX) PACK PO SCH ×2 (09:43→21:43)
[2022-06-24] MEDS: LACTOBACILLUS ACIDOPHILUS (PROBIOTIC) CAPSULE PO SCH ×2 (09:49→21:33)
[2022-06-24] MEDS: SENNA W/DOCUSATE (SENOKOT S) TABLET PO SCH ×3 (09:49→21:43)
[2022-06-24] MEDS: DOCUSATE SODIUM 100 MG (COLACE) CAP PO SCH ×3 (09:49→21:43)
[2022-06-24] MEDS: ENOXAPARIN INJECTION 30 MG/0.3 ML SYR SC SCH (09:49)
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
--- NOTE | 2022-06-24 11:00 | Physical Therapy Daily Note ---
PT Daily Note-Current Subjective Patient in WC at bedside pre tx, agrees to PT, has no complaints of pain. Pain Section J - Health Conditions 1. Rarely or not at all 2. Occasionally 3. Frequently 4. Almost constantly 8. Unable to answer Pain Effect on Sleep: 1 Pain Interference with Therapy: 1 Pain Interference w/Day-to-Day: 1 Appearance Patient in WC at bedside post tx with nurse call, phone, tray, all needs met. Mental Status Patient Orientation: Normal For Age Transfers SCALE: Activities may be completed with or without assistive devices. 1-Xrtjnjbmrt-xjtrxyx completes the activity by him/herself with no assistance from a helper. 5-Set-up or Clean-up Assistance-helper sets up or cleans up; patient completes activity. [place] assists only prior to or following the activity. 4-Supervision or Touching Assistance-helper provides verbal cues and/or touching/steadying and/or contact guard assistance as patient completes activ ity. Assistance may be provided throughout the activity or intermittently. 3-Partial/Moderate Assistance-helper does LESS THAN HALF the effort. [place] lifts, holds or supports trunk or limbs, but provides less than half the effort. 2-Substantial/Maximal Assistance-helper does MORE THAN HALF the effort. [place] lifts or holds trunk or limbs and provides more than half the effort. 0-Novlexdov-admrdd does ALL the effort. Patient does none of the effort to complete the activity. Or, the assistance of 2 or more helpers is required for the patient to complete the activity. If activity was not attempted, code reason: 7-Patient Refused. 9-Not Applicable-not attempted and the patient did not perform the activity before the current illness, exacerbation or injury. 10-Not Attempted due to Environmental Limitations-(lack of equipment, weather restraints, etc.). 88-Not Attempted due to Medical Conditions or Safety Concerns. Roll Left & Right (QC): 6 Sit to Lying (QC): 4 Lying to Sitting/Side of Bed(Q: 4 Chair/Vcw-uo-Kdqfv Xfer(QC): 4 SBA transfers Wheelchair Training Does the Pt Use a Wheelchair?: Yes Wheel 50 ft with 2 turns (QC): 6 Wheel 150 ft (QC): 6 Type of Wheelchair: Manual 1000', practiced going up and down a long ramp to work on arm strength Exercises BLE supine stretching (glues, hamstrings, adductors, calves), prone hip stretch 5 min, sit to stands in parallel bars 3 sets of 10, manually resisted leg press 3 sets of 10 Treatments bed mobility and transfers, stretching, strengthening, WC mobility Assessment Current Status: Fair Progress improving transfers and endurance PT Chcf Goals Payroll Analyst Goals PT Payroll Analyst Goals Time Frame: Jun 30, 2022 Roll Left & Right (QC): 6 Sit to Lying (QC): 6 Lying-Sitting on Side/Bed(QC): 6 Sit to Stand (QC): 4 (CGA) Chair/Fze-hr-Ulxuj Xfer(QC): 4 (CGA) Toilet Transfer (QC): 4 (CGA) Car Transfer (QC): 4 (CGA) Does the Patient Walk: No and Walking Goal NOT indicated Walk 10 feet (QC): 9 Walk 50ft with 2 Turns (QC): 9 Walk 150 ft (QC): 9 Walking 10ft on Uneven Surface: 9 1 Step (curb) (QC): 9 4 Steps (QC): 9 12 Steps (QC): 9 Picking up an Object (QC): 9 Wheel 50 feet with 2 turns (QC: 6 Wheel 150 feet: 6 PT Plan Problem List Problem List: Activity Tolerance, Functional Strength, Safety, Balance, Transfer, Bed Mobility, ROM Treatment/Plan Treatment Plan: Continue Plan of Care Treatment Plan: Bed Mobility, Education, Functional Activity Lizeth, Functional Strength, Group Therapy, Safety, Therapeutic Exercise, Transfers Treatment Duration: Jun 30, 2022 Frequency: At least 5 of 7 days/Wk (IRF) Estimated Hrs Per Day: 1.5 hours per day Patient and/or Family Agrees t: Yes Safety Risks/Education Patient Education: Transfer Techniques, Correct Positioning, W/C Management, Safety Issues Teaching Recipient: Patient Teaching Methods: Demonstration, Discussion Response to Teaching: Reinforcement Needed Time Time In: 1000 Time Out: 1100 DATE: Jun 24, 2022 Total Billed Treatment Time: 60 Total Billed Treatment 1 visit FA 30' EX 30' EDGAR REYNOLDS PT Jun 24, 2022 11:00
--- NOTE | 2022-06-24 14:02 | Physical Therapy Daily Note ---
PT Daily Note-Current Subjective Patient in in therapy gym pre tx, agrees to PT, has no complaints of pain. Pain Section J - Health Conditions 1. Rarely or not at all 2. Occasionally 3. Frequently 4. Almost constantly 8. Unable to answer Pain Effect on Sleep: 1 Pain Interference with Therapy: 1 Pain Interference w/Day-to-Day: 1 Appearance Patient in at bedside post tx with nurse call, phone, tray, all needs met. Mental Status Patient Orientation: Normal For Age Transfers SCALE: Activities may be completed with or without assistive devices. 0-Qlenkmloev-lfbalpe completes the activity by him/herself with no assistance from a helper. 5-Set-up or Clean-up Assistance-helper sets up or cleans up; patient completes activity. [place] assists only prior to or following the activity. 4-Supervision or Touching Assistance-helper provides verbal cues and/or touching/steadying and/or contact guard assistance as patient completes a ctivity. Assistance may be provided throughout the activity or intermittently. 3-Partial/Moderate Assistance-helper does LESS THAN HALF the effort. [place] lifts, holds or supports trunk or limbs, but provides less than half the effort. 2-Substantial/Maximal Assistance-helper does MORE THAN HALF the effort. [place] lifts or holds trunk or limbs and provides more than half the effort. 4-Edfqgqahu-hgullw does ALL the effort. Patient does none of the effort to complete the activity. Or, the assistance of 2 or more helpers is required for the patient to complete the activity. If activity was not attempted, code reason: 7-Patient Refused. 9-Not Applicable-not attempted and the patient did not perform the activity before the current illness, exacerbation or injury. 10-Not Attempted due to Environmental Limitations-(lack of equipment, weather restraints, etc.). 88-Not Attempted due to Medical Conditions or Safety Concerns. Chair/Qqj-vh-Lvfqj Xfer(QC): 4 Patient transferred to the [facility] and back, its a little lower than his WC and the transfer back to his WC was more challenging, especially since he had been exercising and was tired but he did it with CGA Exercises NuStep Minutes: 15 NuStep Workload: 4 Treatments transfers, strengthening Assessment Current Status: Fair Progress Patient needed several rest breaks but was eventually able to go for 15 min on the NuStep PT Tool And Die Machinist Goals Tool And Die Machinist Goals PT Group Home Goals Time Frame: Jun 30, 2022 Roll Left & Right (QC): 6 Sit to Lying (QC): 6 Lying-Sitting on Side/Bed(QC): 6 Sit to Stand (QC): 4 (CGA) Chair/Zss-za-Chdvj Xfer(QC): 4 (CGA) Toilet Transfer (QC): 4 (CGA) Car Transfer (QC): 4 (CGA) Does the Patient Walk: No and Walking Goal NOT indicated Walk 10 feet (QC): 9 Walk 50ft with 2 Turns (QC): 9 Walk 150 ft (QC): 9 Walking 10ft on Uneven Surface: 9 1 Step (curb) (QC): 9 4 Steps (QC): 9 12 Steps (QC): 9 Picking up an Object (QC): 9 Wheel 50 feet with 2 turns (QC: 6 Wheel 150 feet: 6 PT Plan Problem List Problem List: Activity Tolerance, Functional Strength, Safety, Balance, T ransfer, Bed Mobility, ROM Treatment/Plan Treatment Plan: Continue Plan of Care Treatment Plan: Bed Mobility, Education, Functional Activity Lizeth, Functional Strength, Group Therapy, Safety, Therapeutic Exercise, Transfers Treatment Duration: Jun 30, 2022 Frequency: At least 5 of 7 days/Wk (IRF) Estimated Hrs Per Day: 1.5 hours per day Patient and/or Family Agrees t: Yes Safety Risks/Education Patient Education: Transfer Techniques, Correct Positioning, Safety Issues Teaching Recipient: Patient Teaching Methods: Demonstration, Discussion Response to Teaching: Reinforcement Needed Time Time In: 1330 Time Out: 1400 DATE: Jun 24, 2022 Total Billed Treatment Time: 30 Total Billed Treatment 1 visit EX 15' FA 15' EDGAR REYNOLDS PT Jun 24, 2022 14:02
--- NOTE | 2022-06-24 14:52 | Occupational Ther Daily Note ---
OT Current Status-Daily Note Subjective Pt alert, sitting in w/c. Pt agrees to therapy. No c/o pain. Mental Status/Objective Patient Orientation: Person, Place, Time, Situation Attachments: IV ADL-Treatment Therapy Code Descriptions/Definitions Functional [place] Measure: 0=Not Assessed/NA 4=Minimal Assistance 1=Total Assistance 5=Supervision or Setup 2=Maximal Assistance 6=Modified [place] 3=Moderate Assistance 7=Complete IndependenceSCALE: Activities may be completed with or without assistive devices. 6-Uypytothhz-qadafqu completes the activity by him/herself with no assistance from a helper. 5-Set-up or Clean-up Assistance-helper sets up or cleans up; patient completes activity. [place] assists only prior to or following the activity. 4-Supervision or Touching Assistance-helper provides verbal cues and/or touching/steadying and/or contact guard assistance as patient completes activity. Assistance may be provided throughout the activity or intermittently. 3-Partial/Moderate Assistance-helper does LESS THAN HALF the effort. [place] lifts, holds or supports trunk or limbs, but provides less than half the effort. 2-Substantial/Maximal Assistance-helper does MORE THAN HALF the effort. [place] lifts or holds trunk or limbs and provides more than half the effort. 6-Lahhrpjae-kjjiyf does ALL the effort. Patient does none of the effort to complete the activity. Or, the assistance of 2 or more helpers is required for the patient to complete the activity. If activity was not attempted, code reason: 7-Patient Refused. 9-Not Applicable-not attempted and the patient did not perform the activity before the current illness, exacerbation or injury. 10-Not Attempted due to Environmental Limitations-(lack of equipment, weather restraints, etc.). 88-Not Attempted due to Medical Conditions or Safety Concerns. Other Treatment Pt completed B UE strengthening to increase strength for daily functional tasks. ROM arc with 1# wt applied to B wrists to increase strength and AROM. [place] kathy exercises against gravity to work on strength and AROM. Arm pulleys to stretch B shldrs after strengthening. After session, pt left in care of PT. All needs met in room. OT Short Term Goals Short Term Goals Time Frame: Jun 18, 2022 OT Risk Management Analyst Goals Usp Goals Time Frame: Jul 10, 2022 Acute change in mental status: 0 Inattention: 0 Disorganized thinkin Altered level of consciousness: 0 Eating (QC): 6 (met) Oral Hygiene (QC): 6 (met) Toileting Hygiene (QC): 6 (met) Shower/Bathe Self (QC): 6 (met) Upper Body Dressing (QC): 6 (met) Lower Body Dressing (QC): 6 (met) On/Off Footwear (QC): 6 (met) Additional Goals: 1-Demonstrate ADL Tasks, 2-Verbalize Understanding, 3- ImproveStrength/Lizeth 1=Demonstrate adherence to instructed precautions during ADL tasks. 2=Patient will verbalize/demonstrate understanding of assistive devices/mo difications for ADL. 3=Patient will improve strength/tolerance for activity to enable patient to perform ADL's. OT Education/Plan Problem List/Assessment Assessment: Decreased Activ Tolerance, Decreased UE Strength Discharge Recommendations Plan/Recommendations: Continue POC Treatment Plan/Plan of Care Patient would benefit from OT for education, treatment and training to promote independence in ADL's, mobility, safety and/or upper extremity function for ADL's. Plan of Care: ADL Retraining, Functional Mobility, Group Exercise/Act as Ind, UE Funct Exercise/Act Treatment Duration: Jul 10, 2022 Frequency: At least 5 of 7 days/Wk (IRF) Estimated Hrs Per Day: 1.5 hours per day Agreement: Yes Rehab Potential: Fair Time Start Time: 13:00 Stop Time: 13:30 DATE: Jun 24, 2022 Total Time Billed (hr/min): 30 Billed Treatment Time 1 visit-EX 2 (30 min) MACKENZIE DOMINGUEZ Jun 24, 2022 14:52
[2022-06-24 19:39] VITALS: BP 140/63
[2022-06-24 20:05] VITALS: BP 147/77
--- NOTE | 2022-06-25 04:55 | PM&R Progress Note ---
Subjective HPI/CC On Admission Date Seen by Provider: Jun 25, 2022 Time Seen by Provider: 10:00 Subjective/Events-last exam 06/25/2022: No major events Standing via parallel bars No pain reported In/out caths maintained 06/24/2022: Improved status Refuses Celexa since it put him to sleep Very frustrated with multiple facets of his care but will continue to be supportive 06/23/2022: Doing well Very despondent at times Celexa will be started Retention noted No pain 06/22/2022: Having issues with his urinary stream UA not revealing but will wait for final culture No pain reported 06/21/2022: Talked about lambert catheter and retention issue Monitor closely and stop Oxybutynin No other issues 06/20/2022: No major issues Lambert cath still in place until his home condom catheter is brought from home Awaiting visitor today 06/19/2022: Doing well Working with PT Increasing strength Condom catheter will be brought from home to use 06/18/2022: Doing very well No pain reported BM regimen ordered IV abx maintained Working hard in therapy 06/17/2022: Doing well Improved in therapy already Likely short course here in ARU No pain reported BM regimen ordered as he does at home In out caths will be initiated after lambert DC Review of Systems General: Fatigue, Malaise Focused Exam Lactate Level Objective Exam Vital Signs Vital Signs Date Time Temp Pulse Resp B/P (MAP) Pulse Ox O2 Delivery O2 Flow Rate FiO2 06/25/22 19:42 36.4 86 20 123/77 (92) 98 Room Air Capillary Refill : General Appearance: No Apparent Distress, WD/WN, Chronically ill, Thin HEENT: PERRL/EOMI, Normal ENT Inspection, Pharynx Normal Neck: Full Range of Motion, Normal Inspection, Non Tender, Supple, Carotid Bruit Respiratory: Chest Non Tender, Lungs Clear, Normal Breath Sounds, No Accessory Muscle Use, No Respiratory Distress Cardiovascular: Regular Rate, Rhythm, No Edema, No Gallop, No JVD, No Murmur, Normal Peripheral Pulses Gastrointestinal: Normal Bowel Sounds, No Organomegaly, No Pulsatile Mass, Non Tender, Soft Back: Normal Inspection, No CVA Tenderness, No Vertebral Tenderness Extremity: Normal Capillary Refill, Normal Inspection, Normal Range of Motion, Non Tender, No Calf Tenderness, No Pedal Edema Neurologic/Psychiatric: Alert, Oriented x3, Normal 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 FIM Transfers Therapy Code Descriptions/Definitions Functional [place] Measure: 0=Not Assessed/NA 4=Minimal Assistance 1=Total Assistance 5=Supervision or Setup 2=Maximal Assistance 6=Modified [place] 3=Moderate Assistance 7=Complete IndependenceSCALE: Activities may be completed with or without assistive devices. 6-Lwgsqxqemj-ybixcmw completes the activity by him/herself with no assistance from a helper. 5-Set-up or Clean-up Assistance-helper sets up or cleans up; patient completes activity. [place] assists only prior to or following the activity. 4-Supervision or Touching Assistance-helper provides verbal cues and/or touching/steadying and/or contact guard assistance as patient completes activity. Assistance may be provided throughout the activity or intermittently. 3-Partial/Moderate Assistance-helper does LESS THAN HALF the effort. [place] lifts, holds or supports trunk or limbs, but provides less than half the effort. 2-Substantial/Maximal Assistance-helper does MORE THAN HALF the effort. [place] lifts or holds trunk or limbs and provides more than half the effort. 1-Nttnencgz-frfvaq does ALL the effort. Patient does none of the effort to complete the activity. Or, the assistance of 2 or more helpers is required for the patient to complete the activity. If activity was not attempted, code reason: 7-Patient Refused. 9-Not Applicable-not attempted and the patient did not perform the activity before the current illness, exacerbation or injury. 10-Not Attempted due to Environmental Limitations-(lack of equipment, weather restraints, etc.). 88-Not Attempted due to Medical Conditions or Safety Concerns. Roll Left to Right (QC): 6 Sit to Lying (QC): 4 Sit to Stand (QC): 4 Chair/Zgg-me-Dclpt Xfer(QC): 4 Car Transfer (QC): 2 Gait Training Does the Patient Walk?: No and Walking Goal NOT indicated Walk 10 feet (QC): 9 Walk 50 ft with 2 Turns(QC): 9 Walk 150 ft (QC): 9 Walking 10ft/uneven surface-QC: 9 Wheelchair Training Does the Pt Use a Wheelchair?: Yes Distance: 200'x2 Wheel 50 ft with 2 turns (QC): 6 Wheel 150 ft (QC): 6 Type of Wheelchair: Manual Stair Training 1 Step (curb) (QC): 9 4 Steps (QC): 9 12 Steps (QC): 9 Balance Picking up an Object (QC): 9 ADL-Treatment Eating (QC): 5 Oral Hygiene (QC): 6 Shower/Bathe Self (QC): 6 Upper Body Dressing (QC): 6 Lower Body Dressing (QC): 3 (min A) On/Off Footwear (QC): 6 Toileting Hygiene (QC): 2 Toilet Transfer (QC): 1 Assessment/Plan Assessment and Plan Assess & Plan/Chief Complaint Assessment: Debility from renal cell carcinoma chemotherapy treatment Acute endocarditis placed on Cefazolin1 grams IV Q8 hours for 6 weeks Remote hx of C3 spinal cord injury CKD Anemia Weight loss h/o decubitus ulcers Neurogenic bladder performs in out caths Urinary retention since lambert cath DC and he was on Oxybutynin which has been DC'ed Depression started Celexa but after 1 dose he had side effects so he DC Plan: Pain control In/out caths Lab monitoring Cardiology consultation Lab monitoring 06/17/2022: Monitor closely Fall risk 06/18/2022: Refuses to DC Lambert Monitor closely 06/19/2022: Monitor closely Lambert DC once condom catheter brought from home 06/20/2022: Monitor closely Lambert DC soon 06/21/2022: Monitor retention 06/22/2022: In/Out caths Monitor urinary issues 06/23/2022: Monitor closely In out caths Start anti-depressant 06/24/2022: DC Celexa 06/25/2022: Monitor closely (1) Debility (2) Endocarditis (3) Renal cell carcinoma (4) Weight loss (5) C3 spinal cord injury MELI THOMAS DO Jun 25, 2022 04:55
[2022-06-25] MEDS: ceFAZolin INJECTION 2,000 MG in NS (IVPB) 50 ML IV SCH ×3 (06:06→22:15)
[2022-06-25] MEDS: CATHETER FLUSH 10 ML SYR IVP SCH ×3 (06:06→22:15)
[2022-06-25 08:12] VITALS: BP 130/71
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
[2022-06-25] MEDS: ENOXAPARIN INJECTION 30 MG/0.3 ML SYR SC SCH (08:55)
[2022-06-25] MEDS: LACTOBACILLUS ACIDOPHILUS (PROBIOTIC) CAPSULE PO SCH ×2 (08:55→22:15)
[2022-06-25] MEDS: SENNA W/DOCUSATE (SENOKOT S) TABLET PO SCH ×2 (09:00→21:00)
[2022-06-25] MEDS: DOCUSATE SODIUM 100 MG (COLACE) CAP PO SCH ×2 (09:01→21:00)
[2022-06-25] MEDS: polyethylene glycoL POWDER 17 GM (MIRALAX) PACK PO SCH ×2 (09:19→21:00)
--- NOTE | 2022-06-25 10:54 | Physical Therapy Daily Note ---
PT Daily Note-Current Subjective Patient in at bedside post tx with nurse call, phone, tray, all needs met. Pain Section J - Health Conditions 1. Rarely or not at all 2. Occasionally 3. Frequently 4. Almost constantly 8. Unable to answer Pain Effect on Sleep: 1 Pain Interference with Therapy: 1 Pain Interference w/Day-to-Day: 1 Appearance Patient in at bedside post tx with nurse call, phone, tray, all needs met. Mental Status Patient Orientation: Normal For Age Transfers SCALE: Activities may be completed with or without assistive devices. 3-Ayfpsjvygj-ettwtxw completes the activity by him/herself with no assistance from a helper. 5-Set-up or Clean-up Assistance-helper sets up or cleans up; patient completes activity. [place] assists only prior to or following the activity. 4-Supervision or Touching Assistance-helper provides verbal cues and/or touching/steadying and/or contact guard assistance as patient completes a ctivity. Assistance may be provided throughout the activity or intermittently. 3-Partial/Moderate Assistance-helper does LESS THAN HALF the effort. [place] lifts, holds or supports trunk or limbs, but provides less than half the effort. 2-Substantial/Maximal Assistance-helper does MORE THAN HALF the effort. [place] lifts or holds trunk or limbs and provides more than half the effort. 1-Witgdesso-imfvkj does ALL the effort. Patient does none of the effort to complete the activity. Or, the assistance of 2 or more helpers is required for the patient to complete the activity. If activity was not attempted, code reason: 7-Patient Refused. 9-Not Applicable-not attempted and the patient did not perform the activity before the current illness, exacerbation or injury. 10-Not Attempted due to Environmental Limitations-(lack of equipment, weather restraints, etc.). 88-Not Attempted due to Medical Conditions or Safety Concerns. Roll Left & Right (QC): 6 Sit to Lying (QC): 4 Chair/Gdc-gl-Gtabz Xfer(QC): 4 SBA for transfer to therapy table, therapist performed BLE stretching (hamstrings, calves, glutes, adductors), and prone 5 min hip stretch, then transfer back to Wheelchair Training Does the Pt Use a Wheelchair?: Yes Wheel 50 ft with 2 turns (QC): 6 Wheel 150 ft (QC): 6 Type of Wheelchair: Manual 1000', patient went up and down a long ramp, twice, to work on arm strength Exercises Patient performed sit to stand 3 sets of 10 in the parallel bars using left hand on the bar and right hand on the WC, this simulates how he will stand at the kitchen sink to perform different activities, which he does at home Treatments bed mobility and transfers, stretching, strengthening, standing, WC mobility Assessment Current Status: Fair Progress improving transfers and standing 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 Mcc Goals 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 Time Frame: Jun 30, 2022 Roll Left & Right (QC): 6 Sit to Lying (QC): 6 Lying-Sitting on Side/Bed(QC): 6 Sit to Stand (QC): 4 (CGA) Chair/Yqo-vw-Ljrjc Xfer(QC): 4 (CGA) Toilet Transfer (QC): 4 (CGA) Car Transfer (QC): 4 (CGA) Does the Patient Walk: No and Walking Goal NOT indicated Walk 10 feet (QC): 9 Walk 50ft with 2 Turns (QC): 9 Walk 150 ft (QC): 9 Walking 10ft on Uneven Surface: 9 1 Step (curb) (QC): 9 4 Steps (QC): 9 12 Steps (QC): 9 Picking up an Object (QC): 9 Wheel 50 feet with 2 turns (QC: 6 Wheel 150 feet: 6 PT Plan Problem List Problem List: Activity Tolerance, Functional Strength, Safety, Balance, Gait, Transfer, Bed Mobility, ROM Treatment/Plan Treatment Plan: Continue Plan of Care Treatment Plan: Bed Mobility, Education, Functional Activity Lizeth, Functional Strength, Group Therapy, Safety, Therapeutic Exercise, Transfers Treatment Duration: Jun 30, 2022 Frequency: At least 5 of 7 days/Wk (IRF) Estimated Hrs Per Day: 1.5 hours per day Patient and/or Family Agrees t: Yes Safety Risks/Education Patient Education: Transfer Techniques, Correct Positioning, W/C Management, Safety Issues Teaching Recipient: Patient Teaching Methods: Demonstration, Discussion Response to Teaching: Reinforcement Needed Time Time In: 1000 Time Out: 1100 DATE: Jun 25, 2022 Total Billed Treatment Time: 60 Total Billed Treatment 1 visit EX 30' FA 30' EDGAR REYNOLDS PT Jun 25, 2022 10:54
--- NOTE | 2022-06-25 11:57 | Occupational Ther Daily Note ---
OT Current Status-Daily Note Subjective Pt alert, sitting in w/c. Pt agrees to therapy. No c/o pain. Mental Status/Objective Patient Orientation: Person, Place, Time, Situation Attachments: IV ADL-Treatment Independent with oral care, grooming and dressing today per pt report. Therapy Code Descriptions/Definitions Functional [place] Measure: 0=Not Assessed/NA 4=Minimal Assistance 1=Total Assistance 5=Supervision or Setup 2=Maximal Assistance 6=Modified [place] 3=Moderate Assistance 7=Complete IndependenceSCALE: Activities may be completed with or without assistive devices. 3-Gwndphcdrh-ivauacy completes the activity by him/herself with no assistance from a helper. 5-Set-up or Clean-up Assistance-helper sets up or cleans up; patient completes activity. [place] assists only prior to or following the activity. 4-Supervision or Touching Assistance-helper provides verbal cues and/or touching/steadying and/or contact guard assistance as patient completes activity. Assistance may be provided throughout the activity or intermittently. 3-Partial/Moderate Assistance-helper does LESS THAN HALF the effort. [place] lifts, holds or supports trunk or limbs, but provides less than half the effort. 2-Substantial/Maximal Assistance-helper does MORE THAN HALF the effort. [place] lifts or holds trunk or limbs and provides more than half the effort. 6-Utxjpfepv-kkbbyn does ALL the effort. Patient does none of the effort to compl ete the activity. Or, the assistance of 2 or more helpers is required for the patient to complete the activity. If activity was not attempted, code reason: 7-Patient Refused. 9-Not Applicable-not attempted and the patient did not perform the activity before the current illness, exacerbation or injury. 10-Not Attempted due to Environmental Limitations-(lack of equipment, weather restraints, etc.). 88-Not Attempted due to Medical Conditions or Safety Concerns. Other Treatment Pt propels w/c to/from therapy gym/room independently. Pt completed gross motor for B hand and UE to increase strength and stamina for daily functional tasks. Pt has less recovery breaks intermittently throughout each exercise. [place] kathy exercises-varying amount of sets to equal 30 reps. Arm/shldr pulleys for 3 min 50 secs completed for stretch of B UE after exercises. After session, pt sitting in w/c in room with call light/phone in reach. All needs met in room. OT Short Term Goals Short Term Goals Time Frame: Jun 18, 2022 OT Set Up And Charger Goals Halfway Goals Time Frame: Jul 10, 2022 Acute change in mental status: 0 Inattention: 0 Disorganized thinkin Altered level of consciousness: 0 Eating (QC): 6 (met) Oral Hygiene (QC): 6 (met) Toileting Hygiene (QC): 6 (met) Shower/Bathe Self (QC): 6 (met) Upper Body Dressing (QC): 6 (met) Lower Body Dressing (QC): 6 (met) On/Off Footwear (QC): 6 (met) Additional Goals: 1-Demonstrate ADL Tasks, 2-Verbalize Understanding, 3- ImproveStrength/Lizeth 1=Demonstrate adherence to instructed precautions during ADL tasks. 2=Patient will verbalize/demonstrate understanding of assistive devices/modifications for ADL. 3=Patient will improve strength/tolerance for activity to enable patient to perform ADL's. OT Education/Plan Problem List/Assessment Assessment: Decreased Activ Tolerance, Decreased UE Strength, Impaired Self- Care Skills Discharge Recommendations Plan/Recommendations: Continue POC Treatment Plan/Plan of Care Patient would benefit from OT for education, treatment and training to promote independence in ADL's, mobility, safety and/or upper extremity function for ADL's. Plan of Care: ADL Retraining, Functional Mobility, Group Exercise/Act as Ind, UE Funct Exercise/Act Treatment Duration: Jul 10, 2022 Frequency: At least 5 of 7 days/Wk (IRF) Estimated Hrs Per Day: 1.5 hours per day Agreement: Yes Rehab Potential: Fair Time Start Time: 08:00 Stop Time: 09:00 DATE: Jun 25, 2022 Total Time Billed (hr/min): 60 Billed Treatment Time 1 visit-EX 3 (50 min) FA 1 (10 min) MACKENZIE DOMINGUEZ Jun 25, 2022 11:57
--- NOTE | 2022-06-25 13:46 | Physical Therapy Daily Note ---
PT Daily Note-Current Subjective Patient in WC in therapy gym pre tx, agrees to PT, has no complaints of pain. Will be co-treating with OT for tx to work on balance training and to attempt to simulate getting into and out of his truck. Pain Section J - Health Conditions 1. Rarely or not at all 2. Occasionally 3. Frequently 4. Almost constantly 8. Unable to answer Pain Effect on Sleep: 1 Pain Interference with Therapy: 1 Pain Interference w/Day-to-Day: 1 Appearance Patient in WC post tx, goes back to his room on his own. Mental Status Patient Orientation: Normal For Age Transfers SCALE: Activities may be completed with or without assistive devices. 3-Bmhporqdgv-cyftube completes the activity by him/herself with no assistance from a helper. 5-Set-up or Clean-up Assistance-helper sets up or cleans up; patient completes activity. [place] assists only prior to or following the activity. 4-Supervision or Touching Assistance-helper provides verbal cues and/or touching/steadying and/or contact guard assistance as patient completes activity. Assistance may be provided throughout the activity or intermittently. 3-Partial/Moderate Assistance-helper does LESS THAN HALF the effort. [place] lifts, holds or supports trunk or limbs, but provides less than half the effort. 2-Substantial/Maximal Assistance-helper does MORE THAN HALF the effort. [place] lifts or holds trunk or limbs and provides more than half the effort. 1-Ngxqkwrqt-qcxlwr does ALL the effort. Patient does none of the effort to complete the activity. Or, the assistance of 2 or more helpers is required for the patient to complete the activity. If activity was not attempted, code reason: 7-Patient Refused. 9-Not Applicable-not attempted and the patient did not perform the activity before the current illness, exacerbation or injury. 10-Not Attempted due to Environmental Limitations-(lack of equipment, weather restraints, etc.). 88-Not Attempted due to Medical Conditions or Safety Concerns. Sit to Stand (QC): 4 Attempted to simulate getting into his truck and getting his WC in, attempted several times but patient was having a lot of difficulty standing to do this, possibly from leg exercise this morning. Patient also stood in the parallel bars x2 and worked on standing balance and reaching. Treatments PT performed transfers, standing, balance, OT performed transfers, reaching activity, UE positioning and safety during activity. 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 Goals Time Frame: Jun 30, 2022 Roll Left & Right (QC): 6 Sit to Lying (QC): 6 Lying-Sitting on Side/Bed(QC): 6 Sit to Stand (QC): 4 (CGA) Chair/Fzv-zm-Upvxz Xfer(QC): 4 (CGA) Toilet Transfer (QC): 4 (CGA) Car Transfer (QC): 4 (CGA) Does the Patient Walk: No and Walking Goal NOT indicated Walk 10 feet (QC): 9 Walk 50ft with 2 Turns (QC): 9 Walk 150 ft (QC): 9 Walking 10ft on Uneven Surface: 9 1 Step (curb) (QC): 9 4 Steps (QC): 9 12 Steps (QC): 9 Picking up an Object (QC): 9 Wheel 50 feet with 2 turns (QC: 6 Wheel 150 feet: 6 PT Plan Problem List Problem List: Activity Tolerance, Functional Strength, Safety, Balance, Gait, Transfer, Bed Mobility, ROM Treatment/Plan Treatment Plan: Continue Plan of Care Treatment Plan: Bed Mobility, Education, Functional Activity Lizeth, Functional Strength, Group Therapy, Safety, Therapeutic Exercise, Transfers Treatment Duration: Jun 30, 2022 Frequency: At least 5 of 7 days/Wk (IRF) Estimated Hrs Per Day: 1.5 hours per day Patient and/or Family Agrees t: Yes Safety Risks/Education Patient Education: Transfer Techniques, Correct Positioning, Safety Issues Teaching Recipient: Patient Teaching Methods: Demonstration, Discussion Response to Teaching: Reinforcement Needed Time Time In: 1300 Time Out: 1330 DATE: Jun 25, 2022 Total Billed Treatment Time: 30 Total Billed Treatment 1 visit FA 30' EDGAR REYNOLDS PT Jun 25, 2022 13:46
--- NOTE | 2022-06-25 13:49 | Occupational Ther Daily Note ---
OT Current Status-Daily Note Subjective Pt alert, sitting in w/c in gym. Co-treat with PT to simulate truck transfer and placing w/c into back seat of truck, skills of 2 clinicians required for safety and decrease fall risk while problem solving safe completing of task. PT focusing on standing and body mechanics while OT focusing on UE/UB placement and modifications when necessary. Mental Status/Objective Patient Orientation: Person, Place, Time, Situation Attachments: IV ADL-Treatment Therapy Code Descriptions/Definitions Functional [place] Measure: 0=Not Assessed/NA 4=Minimal Assistance 1=Total Assistance 5=Supervision or Setup 2=Maximal Assistance 6=Modified [place] 3=Moderate Assistance 7=Complete IndependenceSCALE: Activities may be completed with or without assistive devices. 5-Prpbvyegkm-kfuzazm completes the activity by him/herself with no assistance from a helper. 5-Set-up or Clean-up Assistance-helper sets up or cleans up; patient completes activity. [place] assists only prior to or following the activity. 4-Supervision or Touching Assistance-helper provides verbal cues and/or touching/steadying and/or contact guard assistance as patient completes activity. Assistance may be provided throughout the activity or intermittently. 3-Partial/Moderate Assistance-helper does LESS THAN HALF the effort. [place] lifts, holds or supports trunk or limbs, but provides less than half the effort. 2-Substantial/Maximal Assistance-helper does MORE THAN HALF the effort. [place] lifts or holds trunk or limbs and provides more than half the effort. 7-Tdtwkjzax-qxclbf does ALL the effort. Patient does none of the effort to complete the activity. Or, the assistance of 2 or more helpers is required for the patient to complete the activity. If activity was not attempted, code reason: 7-Patient Refused. 9-Not Applicable-not attempted and the patient did not perform the activity before the current illness, exacerbation or injury. 10-Not Attempted due to Environmental Limitations-(lack of equipment, weather restraints, etc.). 88-Not Attempted due to Medical Conditions or Safety Concerns. Other Treatment Set up of transfer for body and w/c. Pt attempt a few times then was not able to complete tasks due to weakness of LE's. Pt then working on off-loading B UE with an UE gross motor tasks while standing. Pt able to complete ROM arc with alternating UE's, one stabilizing on parallel bars and one completing ROM arc. Pt then completed static standing without B UE support while in parallel bars. After therapy, pt sitting in w/c with call light/phone in reach. All needs met in room. OT Short Term Goals Short Term Goals Time Frame: Jun 18, 2022 OT Care Home Goals Esthetician/Owner Goals Time Frame: Jul 10, 2022 Acute change in mental status: 0 Inattention: 0 Disorganized thinkin Altered level of consciousness: 0 Eating (QC): 6 (met) Oral Hygiene (QC): 6 (met) Toileting Hygiene (QC): 6 (met) Shower/Bathe Self (QC): 6 (met) Upper Body Dressing (QC): 6 (met) Lower Body Dressing (QC): 6 (met) On/Off Footwear (QC): 6 (met) Additional Goals: 1-Demonstrate ADL Tasks, 2-Verbalize Understanding, 3- ImproveStrength/Lizeth 1=Demonstrate adherence to instructed precautions during ADL tasks. 2=Patient will verbalize/demonstrate understanding of assistive devices/modifications for ADL. 3=Patient will improve strength/tolerance for activity to enable patient to perform ADL's. OT Education/Plan Problem List/Assessment Assessment: Decreased Activ Tolerance, Decreased UE Strength, Impaired Funct Balance, Impaired Self-Care Skills Discharge Recommendations Plan/Recommendations: Continue POC Treatment Plan/Plan of Care Patient would benefit from OT for education, treatment and training to promote independence in ADL's, mobility, safety and/or upper extremity function for ADL's. Plan of Care: ADL Retraining, Functional Mobility, Group Exercise/Act as Ind, UE Funct Exercise/Act Treatment Duration: Jul 10, 2022 Frequency: At least 5 of 7 days/Wk (IRF) Estimated Hrs Per Day: 1.5 hours per day Agreement: Yes Rehab Potential: Fair Time Start Time: 13:00 Stop Time: 13:30 DATE: Jun 25, 2022 Total Time Billed (hr/min): 30 Billed Treatment Time 1 visit-FA 2 (30 min) MACKENZIE DOMINGUEZ Jun 25, 2022 13:49
[2022-06-25 19:42] VITALS: BP 123/77
[2022-06-26] MEDS: CATHETER FLUSH 10 ML SYR IVP SCH ×3 (06:01→22:16)
[2022-06-26] MEDS: ceFAZolin INJECTION 2,000 MG in NS (IVPB) 50 ML IV SCH ×3 (06:01→22:18)
[2022-06-26 07:51] VITALS: BP 125/70
--- NOTE | 2022-06-26 08:23 | Occupational Ther Daily Note ---
OT Current Status-Daily Note Subjective Pt alert, sitting in w/c. Pt agrees to therapy. No c/o pain. Co-treat with PT ([id number]), skills of 2 clinicians required to fall risk while completing simulated truck transfer and placement of w/c in truck by pt. PT focusing on standing and body mechanics while OT focusing on BUE placement and modifications to transfer. Mental Status/Objective Patient Orientation: Person, Place, Time, Situation Attachments: IV ADL-Treatment Pt agrees to shower. Pt reported that grooming and oral care had been completed prior to OT session independently. Pt has bath bench at home even height with w/c, pt has demonstrated ability to complete independently when simulated with [employer]'s bath bench. Independent with shower using grabbars, hand held shower and sitting 100% of the time on shower bench. Independent with UBD. Assist only to hike the last inches over buttocks for pants, independent with underwear and all other steps. Independent with footwear. Pt reported that he straight cathed himself prior to donning lower body clothing. Therapy Code Descriptions/Definitions Functional [place] Measure: 0=Not Assessed/NA 4=Minimal Assistance 1=Total Assistance 5=Supervision or Setup 2=Maximal Assistance 6=Modified [place] 3=Moderate Assistance 7=Complete IndependenceSCALE: Activities may be completed with or without assistive devices. 8-Ykhjalqomf-vnbtveo completes the activity by him/herself with no assistance from a helper. 5-Set-up or Clean-up Assistance-helper sets up or cleans up; patient completes activity. [place] assists only prior to or following the activity. 4-Supervision or Touching Assistance-helper provides verbal cues and/or touching/steadying and/or contact guard assistance as patient completes activity. Assistance may be provided throughout the activity or intermittently. 3-Partial/Moderate Assistance-helper does LESS THAN HALF the effort. [place] lifts, holds or supports trunk or limbs, but provides less than half the effort. 2-Substantial/Maximal Assistance-helper does MORE THAN HALF the effort. [place] lifts or holds trunk or limbs and provides more than half the effort. 7-Hgflikahy-wuloow does ALL the effort. Patient does none of the effort to complete the activity. Or, the assistance of 2 or more helpers is required for the patient to complete the activity. If activity was not attempted, code reason: 7-Patient Refused. 9-Not Applicable-not attempted and the patient did not perform the activity before the current illness, exacerbation or injury. 10-Not Attempted due to Environmental Limitations-(lack of equipment, weather restraints, etc.). 88-Not Attempted due to Medical Conditions or Safety Concerns. Oral Hygiene (QC): 6 Shower/Bathe Self (QC): 6 Upper Body Dressing (QC): 6 Lower Body Dressing (QC): 4 On/Off Footwear: 6 Toileting Hygiene (QC): 6 (Per pt report) Other Treatment Simulated truck/w/c transfer during co-treatment. Pt was able to stand with one hand on railing (~height of doorhandle) and one handle on 2nd surface (~height of back seat) then lift object up ~foot off the ground and place on designated area without LOB. Pt able to complete with SBA to CGA for safety. Pt then working on lifting with L UE while standing in parallel bars using 6#'s to reach over bar and lift to other side, 2 sets 20 reps with 2 recovery breaks. After session, pt left in care of PT. All needs met . OT Short Term Goals Short Term Goals Time Frame: Jun 18, 2022 OT Half-Way Goals Half-Way Goals Time Frame: Jul 10, 2022 Acute change in mental status: 0 Inattention: 0 Disorganized thinkin Altered level of consciousness: 0 Eating (QC): 6 (met) Oral Hygiene (QC): 6 (met) Toileting Hygiene (QC): 6 (met) Shower/Bathe Self (QC): 6 (met) Upper Body Dressing (QC): 6 (met) Lower Body Dressing (QC): 6 (met) On/Off Footwear (QC): 6 (met) Additional Goals: 1-Demonstrate ADL Tasks, 2-Verbalize Understanding, 3- ImproveStrength/Lizeth 1=Demonstrate adherence to instructed precautions during ADL tasks. 2=Patient will verbalize/demonstrate understanding of assistive devices/modifications for ADL. 3=Patient will improve strength/tolerance for activity to enable patient to perform ADL's. OT Education/Plan Problem List/Assessment Assessment: Decreased Activ Tolerance, Impaired Self-Care Skills Discharge Recommendations Plan/Recommendations: Continue POC Treatment Plan/Plan of Care Patient would benefit from OT for education, treatment and training to promote independence in ADL's, mobility, safety and/or upper extremity function for ADL's. Plan of Care: ADL Retraining, Functional Mobility, Group Exercise/Act as Ind, UE Funct Exercise/Act Treatment Duration: Jul 10, 2022 Frequency: At least 5 of 7 days/Wk (IRF) Estimated Hrs Per Day: 1.5 hours per day Agreement: Yes Rehab Potential: Fair Time Start Time: 08:00 Stop Time: 09:30 DATE: Jun 26, 2022 Total Time Billed (hr/min): 90 Billed Treatment Time 1 visit-ADL 3 (50 min) EX 2 (30 min) FA 1 (10 min) co-treat with PT [id number], individual [id number] MACKENZIE DOMINGUEZ Jun 26, 2022 08:23
[2022-06-26] MEDS: LACTOBACILLUS ACIDOPHILUS (PROBIOTIC) CAPSULE PO SCH ×2 (08:37→22:16)
[2022-06-26] MEDS: DOCUSATE SODIUM 100 MG (COLACE) CAP PO SCH ×2 (08:37→22:15)
[2022-06-26] MEDS: SENNA W/DOCUSATE (SENOKOT S) TABLET PO SCH ×2 (08:38→22:15)
[2022-06-26] MEDS: ENOXAPARIN INJECTION 30 MG/0.3 ML SYR SC SCH (08:39)
[2022-06-26] MEDS: polyethylene glycoL POWDER 17 GM (MIRALAX) PACK PO SCH ×2 (08:39→22:15)
--- NOTE | 2022-06-26 09:04 | PM&R Progress Note ---
Subjective HPI/CC On Admission Date Seen by Provider: Jun 26, 2022 Time Seen by Provider: 10:00 Subjective/Events-last exam 06/26/2022: No major issues Improved back to baseline No falls No pain 06/25/2022: No major events Standing via parallel bars No pain reported In/out caths maintained 06/24/2022: Improved status Refuses Celexa since it put him to sleep Very frustrated with multiple facets of his care but will continue to be supportive 06/23/2022: Doing well Very despondent at times Celexa will be started Retention noted No pain 06/22/2022: Having issues with his urinary stream UA not revealing but will wait for final culture No pain reported 06/21/2022: Talked about lambert catheter and retention issue Monitor closely and stop Oxybutynin No other issues 06/20/2022: No major issues Lambert cath still in place until his home condom catheter is brought from home Awaiting visitor today 06/19/2022: Doing well Working with PT Increasing strength Condom catheter will be brought from home to use 06/18/2022: Doing very well No pain reported BM regimen ordered IV abx maintained Working hard in therapy 06/17/2022: Doing well Improved in therapy already Likely short course here in ARU No pain reported BM regimen ordered as he does at home In out caths will be initiated after lambert DC Review of Systems General: Fatigue, Malaise Neurological: Weakness Objective Exam Vital Signs Vital Signs Date Time Temp Pulse Resp B/P (MAP) Pulse Ox O2 Delivery O2 Flow Rate FiO2 06/26/22 21:00 99 Room Air 06/26/22 19:27 37.1 98 20 115/60 (78) Capillary Refill : General Appearance: No Apparent Distress, WD/WN, Chronically ill, Thin HEENT: PERRL/EOMI, Normal ENT Inspection, Pharynx Normal Neck: Full Range of Motion, Normal Inspection, Non Tender, Supple, Carotid Bruit Respiratory: Chest Non Tender, Lungs Clear, Normal Breath Sounds, No Accessory Muscle Use, No Respiratory Distress Cardiovascular: Regular Rate, Rhythm, No Edema, No Gallop, No JVD, No Murmur, Normal Peripheral Pulses Gastrointestinal: Normal Bowel Sounds, No Organomegaly, No Pulsatile Mass, Non Tender, Soft Back: Normal Inspection, No CVA Tenderness, No Vertebral Tenderness Extremity: Normal Capillary Refill, Normal Inspection, Normal Range of Motion, Non Tender, No Calf Tenderness, No Pedal Edema Neurologic/Psychiatric: Alert, Oriented x3, Normal Mood/Affect, body piercer II-XII Norm as Tested, Depressed Affect, Motor Weakness (bilateral lower extremities) Skin: Normal Color, Warm/Dry Lymphatic: No Adenopathy Results/Procedures Lab Patient resulted labs reviewed. FIM Transfers Therapy Code Descriptions/Definitions Functional [place] Measure: 0=Not Assessed/NA 4=Minimal Assistance 1=Total Assistance 5=Supervision or Setup 2=Maximal Assistance 6=Modified [place] 3=Moderate Assistance 7=Complete IndependenceSCALE: Activities may be completed with or without assistive devices. 5-Kkcwbzbmyk-vwxtcmv completes the activity by him/herself with no assistance from a helper. 5-Set-up or Clean-up Assistance-helper sets up or cleans up; patient completes activity. [place] assists only prior to or following the activity. 4-Supervision or Touching Assistance-helper provides verbal cues and/or touching/steadying and/or contact guard assistance as patient completes activity. Assistance may be provided throughout the activity or intermittently. 3-Partial/Moderate Assistance-helper does LESS THAN HALF the effort. [place] lifts, holds or supports trunk or limbs, but provides less than half the effort. 2-Substantial/Maximal Assistance-helper does MORE THAN HALF the effort. [place] lifts or holds trunk or limbs and provides more than half the effort. 8-Epjcepijx-nfqacu does ALL the effort. Patient does none of the effort to complete the activity. Or, the assistance of 2 or more helpers is required for the patient to complete the activity. If activity was not attempted, code reason: 7-Patient Refused. 9-Not Applicable-not attempted and the patient did not perform the activity befo re the current illness, exacerbation or injury. 10-Not Attempted due to Environmental Limitations-(lack of equipment, weather re straints, etc.). 88-Not Attempted due to Medical Conditions or Safety Concerns. Roll Left to Right (QC): 6 Sit to Lying (QC): 4 Sit to Stand (QC): 4 Chair/Gxp-un-Kuvns Xfer(QC): 4 Car Transfer (QC): 2 Gait Training Does the Patient Walk?: No and Walking Goal NOT indicated Walk 10 feet (QC): 9 Walk 50 ft with 2 Turns(QC): 9 Walk 150 ft (QC): 9 Walking 10ft/uneven surface-QC: 9 Wheelchair Training Does the Pt Use a Wheelchair?: Yes Distance: 200'x2 Wheel 50 ft with 2 turns (QC): 6 Wheel 150 ft (QC): 6 Type of Wheelchair: Manual Stair Training 1 Step (curb) (QC): 9 4 Steps (QC): 9 12 Steps (QC): 9 Balance Picking up an Object (QC): 9 ADL-Treatment Eating (QC): 5 Oral Hygiene (QC): 6 Shower/Bathe Self (QC): 6 Upper Body Dressing (QC): 6 Lower Body Dressing (QC): 3 (min A) On/Off Footwear (QC): 6 Toileting Hygiene (QC): 2 Toilet Transfer (QC): 1 Assessment/Plan Assessment and Plan Assess & Plan/Chief Complaint Assessment: Debility from renal cell carcinoma chemotherapy treatment Acute endocarditis placed on Cefazolin1 grams IV Q8 hours for 6 weeks Remote hx of C3 spinal cord injury CKD Anemia Weight loss h/o decubitus ulcers Neurogenic bladder performs in out caths Urinary retention since lambert cath DC and he was on Oxybutynin which has been DC'ed Depression started Celexa but after 1 dose he had side effects so he DC Plan: Pain control In/out caths Lab monitoring Cardiology consultation Lab monitoring 06/17/2022: Monitor closely Fall risk 06/18/2022: Refuses to DC Lambert Monitor closely 06/19/2022: Monitor closely Lambert DC once condom catheter brought from home 06/20/2022: Monitor closely Lambert DC soon 06/21/2022: Monitor retention 06/22/2022: In/Out caths Monitor urinary issues 06/23/2022: Monitor closely In out caths Start anti-depressant 06/24/2022: DC Celexa 06/25/2022: Monitor closely 06/26/2022: Monitor closely (1) Debility (2) Endocarditis (3) Renal cell carcinoma (4) Weight loss (5) C3 spinal cord injury MELI THOMAS DO Jun 26, 2022 09:03
--- NOTE | 2022-06-26 09:53 | Physical Therapy Daily Note ---
PT Daily Note-Current Subjective Patient in therapy gym pre tx, agrees to PT, states he has some pain at his sternoclavicular joint, there appears to be some mild swelling. Will be co- treating with OT for part of tx due to poor patient mobility, strength, endurance, coordinate UE and LE during activity, safety and reduce risk of falls, and to try to simulate getting into his truck again. Pain Section J - Health Conditions 1. Rarely or not at all 2. Occasionally 3. Frequently 4. Almost constantly 8. Unable to answer Pain Effect on Sleep: 1 Pain Interference with Therapy: 1 Pain Interference w/Day-to-Day: 1 Appearance Patient in WC post tx in room, all needs met. Mental Status Patient Orientation: Normal For Age Transfers SCALE: Activities may be completed with or without assistive devices. 5-Zyngylzptt-lpedipj completes the activity by him/herself with no assistance from a helper. 5-Set-up or Clean-up Assistance-helper sets up or cleans up; patient completes activity. [place] assists only prior to or following the activity. 4-Supervision or Touching Assistance-helper provides verbal cues and/or touching/steadying and/or contact guard assistance as patient completes activity . Assistance may be provided throughout the activity or intermittently. 3-Partial/Moderate Assistance-helper does LESS THAN HALF the effort. [place] lifts, holds or supports trunk or limbs, but provides less than half the effort. 2-Substantial/Maximal Assistance-helper does MORE THAN HALF the effort. [place] lifts or holds trunk or limbs and provides more than half the effort. 6-Wjgyodnnb-akidpz does ALL the effort. Patient does none of the effort to complete the activity. Or, the assistance of 2 or more helpers is required for the patient to complete the activity. If activity was not attempted, code reason: 7-Patient Refused. 9-Not Applicable-not attempted and the patient did not perform the activity before the current illness, exacerbation or injury. 10-Not Attempted due to Environmental Limitations-(lack of equipment, weather restraints, etc.). 88-Not Attempted due to Medical Conditions or Safety Concerns. Roll Left & Right (QC): 6 Sit to Lying (QC): 6 Lying to Sitting/Side of Bed(Q: 6 Sit to Stand (QC): 4 Chair/Ixp-hu-Hdher Xfer(QC): 4 Toilet Transfer (QC): 4 Car Transfer (QC): 4 Patient performs rolling and supine <-> sit with independence, sit <-> stand with SBA, transfers SBA, car transfers SBA. Patient often takes a couple of tries to stand or perform transfers due to needing to adjust positioning. Patient attempted to get his wheelchair in the simulated back seat of his simulated truck but could not quite do it yet. He was able to stand using one arm on his wheelchair and one arm on his simulated truck door. Gait Training Walk 10 feet (QC): 9 Walk 50 ft with 2 Turns(QC): 9 Walk 150 ft (QC): 9 Walking 10ft/uneven surface-QC: 9 Wheelchair Training Wheel 50 ft with 2 turns (QC): 6 Wheel 150 ft (QC): 6 Stair Training 1 Step (curb) (QC): 9 4 Steps (QC): 9 Balance Picking up an Object (QC): 9 Exercises Patient practiced standing and moving weights with right arm to help simulate lifting his wheelchair and moving it. Therapist also performs stretching on BLE (calves, hamstrings, glues, adductors). NuStep Minutes: 15 NuStep Workload: 4 Treatments PT performed strengthening, stretching, positioning and safety during simulated activity and weight lifting, OT performed simulated activity and weight lifting, UE positioning and safety during activity. Assessment Current Status: Fair Progress patient still fatigues easily PT Fish And Wildlife Biologist Goals Fish And Wildlife Biologist Goals PT Fish And Wildlife Biologist Goals Time Frame: Jun 30, 2022 Roll Left & Right (QC): 6 Sit to Lying (QC): 6 Lying-Sitting on Side/Bed(QC): 6 Sit to Stand (QC): 4 (CGA) Chair/Mhb-wi-Ccgaj Xfer(QC): 4 (CGA) Toilet Transfer (QC): 4 (CGA) Car Transfer (QC): 4 (CGA) Does the Patient Walk: No and Walking Goal NOT indicated Walk 10 feet (QC): 9 Walk 50ft with 2 Turns (QC): 9 Walk 150 ft (QC): 9 Walking 10ft on Uneven Surface: 9 1 Step (curb) (QC): 9 4 Steps (QC): 9 12 Steps (QC): 9 Picking up an Object (QC): 9 Wheel 50 feet with 2 turns (QC: 6 Wheel 150 feet: 6 PT Plan Problem List Problem List: Activity Tolerance, Functional Strength, Safety, Balance, Gait, Transfer, Bed Mobility, ROM Treatment/Plan Treatment Plan: Continue Plan of Care Treatment Plan: Bed Mobility, Education, Functional Activity Lizeth, Functional Strength, Group Therapy, Safety, Therapeutic Exercise, Transfers Treatment Duration: Jun 30, 2022 Frequency: At least 5 of 7 days/Wk (IRF) Estimated Hrs Per Day: 1.5 hours per day Patient and/or Family Agrees t: Yes Safety Risks/Education Patient Education: Transfer Techniques, Correct Positioning, W/C Management, Safety Issues Teaching Recipient: Patient Teaching Methods: Demonstration, Discussion Response to Teaching: Reinforcement Needed Time Time In: 0900 Time Out: 1000 DATE: Jun 26, 2022 Total Billed Treatment Time: 60 Total Billed Treatment 1 visit EX 15' FA 45' co-treated from [id number] EDGAR REYNOLDS PT Jun 26, 2022 09:53
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
--- NOTE | 2022-06-26 12:55 | Physical Therapy Daily Note ---
PT Daily Note-Current Subjective Patient in therapy gym pre tx, agrees to PT, has no complaints of pain. Pain Section J - Health Conditions 1. Rarely or not at all 2. Occasionally 3. Frequently 4. Almost constantly 8. Unable to answer Pain Effect on Sleep: 1 Pain Interference with Therapy: 1 Pain Interference w/Day-to-Day: 1 Appearance Patient in WC post tx in room Mental Status Patient Orientation: Person, Place, Situation Transfers SCALE: Activities may be completed with or without assistive devices. 7-Lmvkztrfbq-nrqgstm completes the activity by him/herself with no assistance from a helper. 5-Set-up or Clean-up Assistance-helper sets up or cleans up; patient completes activity. [place] assists only prior to or following the activity. 4-Supervision or Touching Assistance-helper provides verbal cues and/or touching/steadying and/or contact guard assistance as patient completes activity. Assistance may be provided throughout the activity or intermittently. 3-Partial/Moderate Assistance-helper does LESS THAN HALF the effort. [place] lifts, holds or supports trunk or limbs, but provides less than half the effort. 2-Substantial/Maximal Assistance-helper does MORE THAN HALF the effort. [place] lifts or holds trunk or limbs and provides more than half the effort. 4-Vpevdqbsk-mhogqc does ALL the effort. Patient does none of the effort to complete the activity. Or, the assistance of 2 or more helpers is required for the patient to complete the activity. If activity was not attempted, code reason: 7-Patient Refused. 9-Not Applicable-not attempted and the patient did not perform the activity before the current illness, exacerbation or injury. 10-Not Attempted due to Environmental Limitations-(lack of equipment, weather restraints, etc.). 88-Not Attempted due to Medical Conditions or Safety Concerns. Wheelchair Training Does the Pt Use a Wheelchair?: Yes Wheel 50 ft with 2 turns (QC): 6 Wheel 150 ft (QC): 6 Type of Wheelchair: Manual 1000', patient practiced going up and down long ramp twice to work on arm strength Exercises sit to administration specialist parallel bars 3 sets of 10, one hand on bar and one on WC to simulate standing at his sink at home Treatments WC mobility, LE strengthening Assessment Current Status: Fair Progress improving sit to stand PT Per Diem Goals Per Diem Goals PT [facility]fp Goals Time Frame: Jun 30, 2022 Roll Left & Right (QC): 6 Sit to Lying (QC): 6 Lying-Sitting on Side/Bed(QC): 6 Sit to Stand (QC): 4 (CGA) Chair/Jnz-ts-Whqxd Xfer(QC): 4 (CGA) Toilet Transfer (QC): 4 (CGA) Car Transfer (QC): 4 (CGA) Does the Patient Walk: No and Walking Goal NOT indicated Walk 10 feet (QC): 9 Walk 50ft with 2 Turns (QC): 9 Walk 150 ft (QC): 9 Walking 10ft on Uneven Surface: 9 1 Step (curb) (QC): 9 4 Steps (QC): 9 12 Steps (QC): 9 Picking up an Object (QC): 9 Wheel 50 feet with 2 turns (QC: 6 Wheel 150 feet: 6 PT Plan Problem List Problem List: Activity Tolerance, Functional Strength, Safety, Balance, Gait, Transfer, Bed Mobility, ROM Treatment/Plan Treatment Plan: Continue Plan of Care Treatment Plan: Bed Mobility, Education, Functional Activity Lizeth, Functional Strength, Group Therapy, Safety, Therapeutic Exercise, Transfers Treatment Duration: Jun 30, 2022 Frequency: At least 5 of 7 days/Wk (IRF) Estimated Hrs Per Day: 1.5 hours per day Patient and/or Family Agrees t: Yes Safety Risks/Education Patient Education: Correct Positioning, W/C Management, Safety Issues Teaching Recipient: Patient Teaching Methods: Demonstration, Discussion Response to Teaching: Reinforcement Needed Time Time In: 1130 Time Out: 1200 DATE: Jun 26, 2022 Total Billed Treatment Time: 30 Total Billed Treatment 1 visit FA 30' EDGAR REYNOLDS PT Jun 26, 2022 12:55
[2022-06-26 19:27] VITALS: BP 115/60
[2022-06-27] MEDS: CATHETER FLUSH 10 ML SYR IVP SCH ×3 (06:24→21:42)
[2022-06-27] MEDS: ceFAZolin INJECTION 2,000 MG in NS (IVPB) 50 ML IV SCH ×3 (06:24→21:40)
[2022-06-27 07:30] VITALS: BP 132/66
--- NOTE | 2022-06-27 07:39 | PM&R Progress Note ---
Subjective HPI/CC On Admission Date Seen by Provider: Jun 27, 2022 Time Seen by Provider: 12:00 Subjective/Events-last exam 06/27/2022: Improved overall Set for DC Wednesday Using home exercises 06/26/2022: No major issues Improved back to baseline No falls No pain 06/25/2022: No major events Standing via parallel bars No pain reported In/out caths maintained 06/24/2022: Improved status Refuses Celexa since it put him to sleep Very frustrated with multiple facets of his care but will continue to be supportive 06/23/2022: Doing well Very despondent at times Celexa will be started Retention noted No pain 06/22/2022: Having issues with his urinary stream UA not revealing but will wait for final culture No pain reported 06/21/2022: Talked about lambert catheter and retention issue Monitor closely and stop Oxybutynin No other issues 06/20/2022: No major issues Lambert cath still in place until his home condom catheter is brought from home Awaiting visitor today 06/19/2022: Doing well Working with PT Increasing strength Condom catheter will be brought from home to use 06/18/2022: Doing very well No pain reported BM regimen ordered IV abx maintained Working hard in therapy 06/17/2022: Doing well Improved in therapy already Likely short course here in ARU No pain reported BM regimen ordered as he does at home In out caths will be initiated after lambert DC Review of Systems General: Fatigue, Malaise Neurological: Weakness Objective Exam Vital Signs Vital Signs Date Time Temp Pulse Resp B/P (MAP) Pulse Ox O2 Delivery O2 Flow Rate FiO2 06/27/22 21:30 98 Room Air 06/27/22 20:00 37.1 98 18 102/59 (73) Capillary Refill : General Appearance: No Apparent Distress, WD/WN, Chronically ill, Thin HEENT: PERRL/EOMI, Normal ENT Inspection, Pharynx Normal Neck: Full Range of Motion, Normal Inspection, Non Tender, Supple, Carotid Bruit Respiratory: Chest Non Tender, Lungs Clear, Normal Breath Sounds, No Accessory Muscle Use, No Respiratory Distress Cardiovascular: Regular Rate, Rhythm, No Edema, No Gallop, No JVD, No Murmur, Normal Peripheral Pulses Gastrointestinal: Normal Bowel Sounds, No Organomegaly, No Pulsatile Mass, Non Tender, Soft Back: Normal Inspection, No CVA Tenderness, No Vertebral Tenderness Extremity: Normal Capillary Refill, Normal Inspection, Normal Range of Motion, Non Tender, No Calf Tenderness, No Pedal Edema Neurologic/Psychiatric: Alert, Oriented x3, Normal 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 FIM Transfers Therapy Code Descriptions/Definitions Functional [place] Measure: 0=Not Assessed/NA 4=Minimal Assistance 1=Total Assistance 5=Supervision or Setup 2=Maximal Assistance 6=Modified [place] 3=Moderate Assistance 7=Complete IndependenceSCALE: Activities may be completed with or without assistive devices. 2-Btlnqcxuhi-umnhpum completes the activity by him/herself with no assistance from a helper. 5-Set-up or Clean-up Assistance-helper sets up or cleans up; patient completes activity. [place] assists only prior to or following the activity. 4-Supervision or Touching Assistance-helper provides verbal cues and/or touching/steadying and/or contact guard assistance as patient completes activity. Assistance may be provided throughout the activity or intermittently. 3-Partial/Moderate Assistance-helper does LESS THAN HALF the effort. [place] lifts, holds or supports trunk or limbs, but provides less than half the effort. 2-Substantial/Maximal Assistance-helper does MORE THAN HALF the effort. [place] lifts or holds trunk or limbs and provides more than half the effort. 9-Ayfyosiga-xivsap does ALL the effort. Patient does none of the effort to complete the activity. Or, the assistance of 2 or more helpers is required for the patient to complete the activity. If activity was not attempted, code reason: 7-Patient Refused. 9-Not Applicable-not attempted and the patient did not perform the activity before the current illness, exacerbation or injury. 10-Not Attempted due to Environmental Limitations-(lack of equipment, weather restraints, etc.). 88-Not Attempted due to Medical Conditions or Safety Concerns. Roll Left to Right (QC): 6 Sit to Lying (QC): 6 Sit to Stand (QC): 4 Chair/Dow-fr-Mbnsn Xfer(QC): 4 Car Transfer (QC): 4 Gait Training Does the Patient Walk?: No and Walking Goal NOT indicated Walk 10 feet (QC): 9 Walk 50 ft with 2 Turns(QC): 9 Walk 150 ft (QC): 9 Walking 10ft/uneven surface-QC: 9 Wheelchair Training Does the Pt Use a Wheelchair?: Yes Distance: 200'x2 Wheel 50 ft with 2 turns (QC): 6 Wheel 150 ft (QC): 6 Type of Wheelchair: Manual Stair Training 1 Step (curb) (QC): 9 4 Steps (QC): 9 12 Steps (QC): 9 Balance Picking up an Object (QC): 9 ADL-Treatment Eating (QC): 5 Oral Hygiene (QC): 6 Shower/Bathe Self (QC): 6 Upper Body Dressing (QC): 6 Lower Body Dressing (QC): 4 On/Off Footwear (QC): 6 Toileting Hygiene (QC): 6 (Per pt report) Toilet Transfer (QC): 1 Assessment/Plan Assessment and Plan Assess & Plan/Chief Complaint Assessment: Debility from renal cell carcinoma chemotherapy treatment Acute endocarditis placed on Cefazolin1 grams IV Q8 hours for 6 weeks Remote hx of C3 spinal cord injury CKD Anemia Weight loss h/o decubitus ulcers Neurogenic bladder performs in out caths Urinary retention since lambert cath DC and he was on Oxybutynin which has been DC'ed Depression started Celexa but after 1 dose he had side effects so he DC Plan: Pain control In/out caths Lab monitoring Cardiology consultation Lab monitoring 06/17/2022: Monitor closely Fall risk 06/18/2022: Refuses to DC Lambert Monitor closely 06/19/2022: Monitor closely Lambert DC once condom catheter brought from home 06/20/2022: Monitor closely Lambert DC soon 06/21/2022: Monitor retention 06/22/2022: In/Out caths Monitor urinary issues 06/23/2022: Monitor closely In out caths Start anti-depressant 06/24/2022: DC Celexa 06/25/2022: Monitor closely 06/26/2022: Monitor closely 06/27/2022: Monitor closely (1) Debility (2) Endocarditis (3) Renal cell carcinoma (4) Weight loss (5) C3 spinal cord injury MELI THOMAS DO Jun 27, 2022 07:39
[2022-06-27] MEDS: LACTOBACILLUS ACIDOPHILUS (PROBIOTIC) CAPSULE PO SCH ×2 (08:00→21:41)
[2022-06-27] MEDS: SENNA W/DOCUSATE (SENOKOT S) TABLET PO SCH ×2 (08:00→21:41)
[2022-06-27] MEDS: DOCUSATE SODIUM 100 MG (COLACE) CAP PO SCH ×2 (08:00→21:41)
[2022-06-27] MEDS: ENOXAPARIN INJECTION 30 MG/0.3 ML SYR SC SCH (08:36)
--- NOTE | 2022-06-27 12:41 | Physical Therapy Daily Note ---
PT Daily Note-Current Subjective Pt in recliner upon arrival and agrees to PT. Says his ankle is hurting him today and he is tired. Pain Section J - Health Conditions 1. Rarely or not at all 2. Occasionally 3. Frequently 4. Almost constantly 8. Unable to answer Pain Effect on Sleep: 1 Pain Interference with Therapy: 1 Pain Interference w/Day-to-Day: 1 Mental Status Patient Orientation: Person, Place, Time, Situation Transfers SCALE: Activities may be completed with or without assistive devices. 9-Pgyzyezwkk-evhvtpr completes the activity by him/herself with no assistance f rom a helper. 5-Set-up or Clean-up Assistance-helper sets up or cleans up; patient completes activity. [place] assists only prior to or following the activity. 4-Supervision or Touching Assistance-helper provides verbal cues and/or touching/steadying and/or contact guard assistance as patient completes activity. Assistance may be provided throughout the activity or intermittently. 3-Partial/Moderate Assistance-helper does LESS THAN HALF the effort. [place] lifts, holds or supports trunk or limbs, but provides less than half the effort. 2-Substantial/Maximal Assistance-helper does MORE THAN HALF the effort. [place] lifts or holds trunk or limbs and provides more than half the effort. 0-Ybpxmhjot-xakpou does ALL the effort. Patient does none of the effort to complete the activity. Or, the assistance of 2 or more helpers is required for the patient to complete the activity. If activity was not attempted, code reason: 7-Patient Refused. 9-Not Applicable-not attempted and the patient did not perform the activity before the current illness, exacerbation or injury. 10-Not Attempted due to Environmental Limitations-(lack of equipment, weather restraints, etc.). 88-Not Attempted due to Medical Conditions or Safety Concerns. Gait Training Does the Patient Walk?: Yes Distance: 10' Walk 10 feet (QC): 3 Gait Assistive Device: FWW antalgic, slow Wheelchair Training Does the Pt Use a Wheelchair?: Yes Wheel 50 ft with 2 turns (QC): 3 Type of Wheelchair: Manual requires verbal and tactile cues Exercises Seated Therapy Exercises: Ankle pumps, Sit to stand, Long arc quads, Hip flexion Seated Reps: 20 Treatments Pt TRFs back to bed post treatment and all needs met and call light nearby. Assessment Current Status: Good Progress Pt required verbal and tactile cues in order to perform TRFs and exs correctly. Pt fatigued post treatment. 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 [facility] Goals PT [facility] Goals Time Frame: Jun 30, 2022 Roll Left & Right (QC): 6 Sit to Lying (QC): 6 Lying-Sitting on Side/Bed(QC): 6 Sit to Stand (QC): 4 (CGA) Chair/Omb-la-Libna Xfer(QC): 4 (CGA) Toilet Transfer (QC): 4 (CGA) Car Transfer (QC): 4 (CGA) Does the Patient Walk: No and Walking Goal NOT indicated Walk 10 feet (QC): 9 Walk 50ft with 2 Turns (QC): 9 Walk 150 ft (QC): 9 Walking 10ft on Uneven Surface: 9 1 Step (curb) (QC): 9 4 Steps (QC): 9 12 Steps (QC): 9 Picking up an Object (QC): 9 Wheel 50 feet with 2 turns (QC: 6 Wheel 150 feet: 6 PT Plan Problem List Problem List: Activity Tolerance, Functional Strength, Safety Treatment/Plan Treatment Plan: Continue Plan of Care Treatment Plan: Bed Mobility, Education, Functional Activity Lizeth, Functional Strength, Group Therapy, Safety, Therapeutic Exercise, Transfers Treatment Duration: Jun 30, 2022 Frequency: At least 5 of 7 days/Wk (IRF) Estimated Hrs Per Day: 1.5 hours per day Patient and/or Family Agrees t: Yes Time Time In: 1000 Time Out: 1030 DATE: Jun 27, 2022 Total Billed Treatment Time: 30 Total Billed Treatment 1, Ex 15', Wc 15' KATERINE ROMERO PTA Jun 27, 2022 12:41
[2022-06-27] MEDS: polyethylene glycoL POWDER 17 GM (MIRALAX) PACK PO SCH ×2 (14:20→21:40)
[2022-06-27 20:00] VITALS: BP 102/59
[2022-06-28] MEDS: ceFAZolin INJECTION 2,000 MG in NS (IVPB) 50 ML IV SCH ×3 (06:33→21:31)
[2022-06-28] MEDS: CATHETER FLUSH 10 ML SYR IVP SCH ×3 (06:33→21:39)
[2022-06-28 07:17] VITALS: BP 140/66
--- NOTE | 2022-06-28 07:17 | PM&R Progress Note ---
Subjective HPI/CC On Admission Date Seen by Provider: Jun 28, 2022 Time Seen by Provider: 12:30 Subjective/Events-last exam 06/28/2022: Patient in bathroom Had BM after suppository last night DC planned for tomorrow 06/27/2022: Improved overall Set for DC Wednesday Using home exercises 06/26/2022: No major issues Improved back to baseline No falls No pain 06/25/2022: No major events Standing via parallel bars No pain reported In/out caths maintained 06/24/2022: Improved status Refuses Celexa since it put him to sleep Very frustrated with multiple facets of his care but will continue to be supportive 06/23/2022: Doing well Very despondent at times Celexa will be started Retention noted No pain 06/22/2022: Having issues with his urinary stream UA not revealing but will wait for final culture No pain reported 06/21/2022: Talked about lambert catheter and retention issue Monitor closely and stop Oxybutynin No other issues 06/20/2022: No major issues Lambert cath still in place until his home condom catheter is brought from home Awaiting visitor today 06/19/2022: Doing well Working with PT Increasing strength Condom catheter will be brought from home to use 06/18/2022: Doing very well No pain reported BM regimen ordered IV abx maintained Working hard in therapy 06/17/2022: Doing well Improved in therapy already Likely short course here in [facility]U No pain reported BM regimen ordered as he does at home In out caths will be initiated after lambert DC Review of Systems General: Fatigue, Malaise Objective Exam Vital Signs Vital Signs Date Time Temp Pulse Resp B/P (MAP) Pulse Ox O2 Delivery O2 Flow Rate FiO2 06/28/22 09:10 Room Air 06/28/22 07:17 37.1 88 20 140/66 (90) 98 Capillary Refill : General Appearance: No Apparent Distress, WD/WN, Chronically ill, Thin HEENT: PERRL/EOMI, Normal ENT Inspection, Pharynx Normal Neck: Full Range of Motion, Normal Inspection, Non Tender, Supple, Carotid Bruit Respiratory: Chest Non Tender, Lungs Clear, Normal Breath Sounds, No Accessory Muscle Use, No Respiratory Distress Cardiovascular: Regular Rate, Rhythm, No Edema, No Gallop, No JVD, No Murmur, Normal Peripheral Pulses Gastrointestinal: Normal Bowel Sounds, No Organomegaly, No Pulsatile Mass, Non Tender, Soft Back: Normal Inspection, No CVA Tenderness, No Vertebral Tenderness Extremity: Normal Capillary Refill, Normal Inspection, Normal Range of Motion, Non Tender, No Calf Tenderness, No Pedal Edema Neurologic/Psychiatric: Alert, Oriented x3, Normal 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 FIM Transfers Therapy Code Descriptions/Definitions Functional [place] Measure: 0=Not Assessed/NA 4=Minimal Assistance 1=Total Assistance 5=Supervision or Setup 2=Maximal Assistance 6=Modified [place] 3=Moderate Assistance 7=Complete IndependenceSCALE: Activities may be completed with or without assistive devices. 1-Sfjzejrfeq-wargqaz completes the activity by him/herself with no assistance from a helper. 5-Set-up or Clean-up Assistance-helper sets up or cleans up; patient completes activity. [place] assists only prior to or following the activity. 4-Supervision or Touching Assistance-helper provides verbal cues and/or touching/steadying and/or contact guard assistance as patient completes activity. Assistance may be provided throughout the activity or intermittently. 3-Partial/Moderate Assistance-helper does LESS THAN HALF the effort. [place] lifts, holds or supports trunk or limbs, but provides less than half the effort. 2-Substantial/Maximal Assistance-helper does MORE THAN HALF the effort. [place] lifts or holds trunk or limbs and provides more than half the effort. 7-Zhurqkkum-qnuvxn does ALL the effort. Patient does none of the effort to complete the activity. Or, the assistance of 2 or more helpers is required for the patient to complete the activity. If activity was not attempted, code reason: 7-Patient Refused. 9-Not Applicable-not attempted and the patient did not perform the activity before the current illness, exacerbation or injury. 10-Not Attempted due to Environmental Limitations-(lack of equipment, weather restraints, etc.). 88-Not Attempted due to Medical Conditions or Safety Concerns. Roll Left to Right (QC): 6 Sit to Lying (QC): 6 Sit to Stand (QC): 4 Chair/Ytb-hz-Fgrwt Xfer(QC): 4 Car Transfer (QC): 4 Gait Training Does the Patient Walk?: Yes Distance: 5' Walk 10 feet (QC): 3 Walk 50 ft with 2 Turns(QC): 9 Walk 150 ft (QC): 9 Walking 10ft/uneven surface-QC: 9 Gait Assistive Device: FWW Wheelchair Training Does the Pt Use a Wheelchair?: Yes Distance: 200'x2 Wheel 50 ft with 2 turns (QC): 6 Wheel 150 ft (QC): 6 Type of Wheelchair: Manual Stair Training 1 Step (curb) (QC): 9 4 Steps (QC): 9 12 Steps (QC): 9 Balance Picking up an Object (QC): 9 ADL-Treatment Eating (QC): 5 Oral Hygiene (QC): 6 Shower/Bathe Self (QC): 6 Upper Body Dressing (QC): 6 Lower Body Dressing (QC): 4 On/Off Footwear (QC): 6 Toileting Hygiene (QC): 6 (Per pt report) Toilet Transfer (QC): 1 Assessment/Plan Assessment and Plan Assess & Plan/Chief Complaint Assessment: Debility from renal cell carcinoma chemotherapy treatment Acute endocarditis placed on Cefazolin1 grams IV Q8 hours for 6 weeks Remote hx of C3 spinal cord injury CKD Anemia Weight loss h/o decubitus ulcers Neurogenic bladder performs in out caths Urinary retention since lambert cath DC and he was on Oxybutynin which has been DC'ed Depression started Celexa but after 1 dose he had side effects so he DC Plan: Pain control In/out caths Lab monitoring Cardiology consultation Lab monitoring 06/17/2022: Monitor closely Fall risk 06/18/2022: Refuses to DC Lambert Monitor closely 06/19/2022: Monitor closely Lambert DC once condom catheter brought from home 06/20/2022: Monitor closely Lambert DC soon 06/21/2022: Monitor retention 06/22/2022: In/Out caths Monitor urinary issues 06/23/2022: Monitor closely In out caths Start anti-depressant 06/24/2022: DC Celexa 06/25/2022: Monitor closely 06/26/2022: Monitor closely 06/27/2022: Monitor closely 06/28/2022: Monitor closely (1) Debility (2) Endocarditis (3) Renal cell carcinoma (4) Weight loss (5) C3 spinal cord injury MELI THOMAS DO Jun 28, 2022 07:17
[2022-06-28] MEDS: SENNA W/DOCUSATE (SENOKOT S) TABLET PO SCH ×2 (08:50→21:38)
[2022-06-28] MEDS: LACTOBACILLUS ACIDOPHILUS (PROBIOTIC) CAPSULE PO SCH ×2 (08:50→21:32)
[2022-06-28] MEDS: ENOXAPARIN INJECTION 30 MG/0.3 ML SYR SC SCH (08:50)
[2022-06-28] MEDS: DOCUSATE SODIUM 100 MG (COLACE) CAP PO SCH ×2 (08:50→21:38)
[2022-06-28] MEDS: polyethylene glycoL POWDER 17 GM (MIRALAX) PACK PO SCH ×2 (09:17→21:30)
[2022-06-28] MEDS ORDERED: LACT1CAP7 PO (13:23)
[2022-06-28] MEDS ORDERED: DOCU100C37 PO (13:23)
--- NOTE | 2022-06-28 13:25 | D/C HH Face to Face Order ---
D/C HH Face to Face Orders Reconcile Patient Problems Problems Reviewed?: Yes Instructions for Patient HH Patient Instructions/FollowUp: PCP 1 week Physician to follow Patient: PCP Discharge Diet for Home: Regular Diet Patient Problems: Debility Endocarditis Patient Data-Allergies,Ht & Wt Patient Allergies: Coded Allergies: penicillin V (Verified Allergy, Unknown, Unknown, 06/16/22) Home Health Need/Face to Face Date of Face to Face: Jun 28, 2022 Clinical Findings: Generalized weakness and fatigue, Instability, Muscle weakness I have seen Pt [id number]-lx-[id number]: Yes Discharged To: Home Diagnosis/Conditions: debility Patient is Homebound due to: Muscle weakness, Non-weight bearing Homebound Status Due to the above stated illness, injury or surgical procedure (medical condition or diagnosis) and associated clinical findings, the patient is homebound because of his/her inability to leave home except with aid of a supportive device and/or person AND leaving the home requires a considerable and taxing effort or is medically contraindicated. Pt req the following assistanc: Wheelchair Home Health Nursing Orders Home Health Services Order: Nursing Services, Casting Agent-Evaluate & Treat, Physical Therapy-Evaluate & Treat Home Health Infusion Therapy Line Start Date: Jun 13, 2022 Certify Stmt I certify that this patient is under my care and that I, a nurse practitioner or a physician; a senior executive assistant working with me, had a face to face encounter that - meets the physician face to face encounter requirements with this patient as dated. MELI THOMAS DO Jun 28, 2022 13:25
[2022-06-28 20:15] VITALS: BP 148/84
[2022-06-29] MEDS: ceFAZolin INJECTION 2,000 MG in NS (IVPB) 50 ML IV SCH (05:07)
[2022-06-29] MEDS: CATHETER FLUSH 10 ML SYR IVP SCH (05:07)
[2022-06-29 05:30] LABS: HEMOGLOBIN 10.9 g/dL (13.3-17.7); LYMPHOCYTES % (AUTO) 34 % (12-44)
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
[2022-06-29 05:32] LABS: BASOPHILS % (AUTO) 1 % (0-10); EOSINOPHILS # (AUTO) 0.1 10^3/uL (0.0-0.3); EOSINOPHILS % (AUTO) 4 % (0-10); HEMATOCRIT 33 % (40-54); LYMPHOCYTES # (AUTO) 1.1 10^3/uL (1.0-4.0); MEAN CORPUSCULAR HEMOGLOBIN 28 pg (25-34); MEAN CORPUSCULAR HGB CONC 33 g/dL (32-36); MEAN CORPUSCULAR VOLUME 84 fL (80-99); MONOCYTES # (AUTO) 0.4 10^3/uL (0.0-1.0); MONOCYTES % (AUTO) 13 % (0-12); NEUTROPHILS # (AUTO) 1.5 10^3/uL (1.8-7.8); NEUTROPHILS % (AUTO) 47 % (42-75); PLATELET COUNT 132 10^3/uL (130-400); WHITE BLOOD COUNT 3.2 10^3/uL (4.3-11.0)
[2022-06-29 05:50] LABS: ALBUMIN 3.4 GM/DL (3.2-4.5); BILIRUBIN,TOTAL 0.5 MG/DL (0.1-1.0); CALCIUM 9.6 MG/DL (8.5-10.1); CREATININE SERUM 0.7 MG/DL (0.60-1.30); POTASSIUM 4.2 MMOL/L (3.6-5.0); TOTAL PROTEIN 6.4 GM/DL (6.4-8.2)
[2022-06-29 05:51] LABS: SMEAR SCAN COMMENT YES
[2022-06-29] MEDS: LACTOBACILLUS ACIDOPHILUS (PROBIOTIC) CAPSULE PO SCH (08:11)
[2022-06-29] MEDS: polyethylene glycoL POWDER 17 GM (MIRALAX) PACK PO SCH (08:12)
[2022-06-29] MEDS: ENOXAPARIN INJECTION 30 MG/0.3 ML SYR SC SCH (08:12)
[2022-06-29] MEDS: DOCUSATE SODIUM 100 MG (COLACE) CAP PO SCH (08:12)
[2022-06-29] MEDS: SENNA W/DOCUSATE (SENOKOT S) TABLET PO SCH (08:12)
--- NOTE | 2022-06-29 08:22 | Occupational Ther Daily Note ---
OT Current Status-Daily Note Subjective Pt declines to complete reassessment today due to not enough of personal catheter supplies to use after a shower and is a necessity to have them to be able to get home without incident. This URBINA has worked with pt throughout his stay and is able to confidently reassess pt on ADLs. Mental Status/Objective Patient Orientation: Person, Place, Time, Situation Attachments: IV ADL-Treatment Pt has demonstrated ability to complete all QC's as described below. Therapy Code Descriptions/Definitions Functional [place] Measure: 0=Not Assessed/NA 4=Minimal Assistance 1=Total Assistance 5=Supervision or Setup 2=Maximal Assistance 6=Modified [place] 3=Moderate Assistance 7=Complete IndependenceSCALE: Activities may be completed with or without assistive devices. 7-Okutfoyljl-tyrtjvd completes the activity by him/herself with no assistance from a helper. 5-Set-up or Clean-up Assistance-helper sets up or cleans up; patient completes activity. [place] assists only prior to or following the activity. 4-Supervision or Touching Assistance-helper provides verbal cues and/or touching/steadying and/or contact guard assistance as patient completes activity. Assistance may be provided throughout the activity or intermittently. 3-Partial/Moderate Assistance-helper does LESS THAN HALF the effort. [place] lifts, holds or supports trunk or limbs, but provides less than half the effort. 2-Substantial/Maximal Assistance-helper does MORE THAN HALF the effort. [place] lifts or holds trunk or limbs and provides more than half the effort. 6-Qwhpevqwl-djvjmw does ALL the effort. Patient does none of the effort to complete the activity. Or, the assistance of 2 or more helpers is required for the patient to complete the activity. If activity was not attempted, code reason: 7-Patient Refused. 9-Not Applicable-not attempted and the patient did not perform the activity before the current illness, exacerbation or injury. 10-Not Attempted due to Environmental Limitations-(lack of equipment, weather restraints, etc.). 88-Not Attempted due to Medical Conditions or Safety Concerns. Eating (QC): 5 (Pt is able to open most items though if small tight lid pt will require assistance. Pt eats with regular utensils.) Oral Hygiene (QC): 6 (Sitting at sink, pt completes oral care independently.) Shower/Bathe Self (QC): 6 (Sitting 100% of the time, pt able to complete shower using HH shower, grabbars and shower bench.) Upper Body Dressing (QC): 6 (Retrieves clothing at w/c level then independent with dressing.) Lower Body Dressing (QC): 6 (Retreives clothing at w/c level then completes in sitting independently.) On/Off Footwear: 6 (Retrieves at w/c level and completes in sitting independently.) Toileting Hygiene (QC): 6 (Straight caths self independently and places Condom catheter independently. Places suppository then sits on toilet to complete BM, hygiene and manipuating clothing independently.) Toilet Transfer (QC): 3 (Pt is able to transfer onto toilet by self then due to toilet to w/c height difference, pt requires assist to transfer off of toilet to w/c.) Pt has demonstrated safe and independent use of slide board if needed. After discussion with pt, pt sitting in w/c with call light phone in reach. All needs met in room. BIMS CAM BIMS Understanding Verbal Content: Understands Brief Interview/Mental Status: Yes IRF INDU BIMS: IRF INDU BIMS Response (Comments) Value Repitition of Three Words Three 3 Recalls Socks Yes, No Cue Required 2 Recalls Blue Yes, No Cue Required 2 Recalls Bed Yes, No Cue Required 2 Year Correct 3 Month Accurate Within 5 Days 2 Day Correct 1 Total 15 Patient Normally Able to Recal: Current Session, Location of own room, Staff Names and faces, That he/she in a [facility] Should Staff Asses. 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 2=Patient will verbalize/demonstrate understanding of assistive devices/modifications for ADL. 3=Patient will improve strength/tolerance for activity to enable patient to perform ADL's. OT Education/Plan Problem List/Assessment Assessment: Decreased Activ Tolerance, Impaired Self-Care Skills Discharge Recommendations Plan/Recommendations: Continue POC Treatment Plan/Plan of Care Patient would benefit from OT for education, treatment and training to promote independence in ADL's, mobility, safety and/or upper extremity function for ADL's. Plan of Care: ADL Retraining, Functional Mobility, Group Exercise/Act as Ind, UE Funct Exercise/Act Treatment Duration: Jul 10, 2022 Frequency: At least 5 of 7 days/Wk (IRF) Estimated Hrs Per Day: 1.5 hours per day Agreement: Yes Rehab Potential: Fair Time Start Time: 07:45 Stop Time: 08:00 DATE: Jun 29, 2022 Total Time Billed (hr/min): 15 Billed Treatment Time 1 visit-FA 1 (15 min) MACKENZIE DOMINGUEZ Jun 29, 2022 08:21
[2022-06-29 08:30] VITALS: BP 98/56
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
--- NOTE | 2022-06-29 09:15 | Physical Therapy Daily Note ---
PT Daily Note-Current Subjective Patient in WC at bedside pre tx, agrees to PT, has no complaints of pain. Pain Section J - Health Conditions 1. Rarely or not at all 2. Occasionally 3. Frequently 4. Almost constantly 8. Unable to answer Pain Effect on Sleep: 1 Pain Interference with Therapy: 1 Pain Interference w/Day-to-Day: 1 Appearance Patient in WC at bedside post tx with nurse call, phone, tray, all needs met. Mental Status Patient Orientation: Normal For Age Transfers SCALE: Activities may be completed with or without assistive devices. 8-Rarnvgcxtl-ywwojso completes the activity by him/herself with no assistance from a helper. 5-Set-up or Clean-up Assistance-helper sets up or cleans up; patient completes activity. [place] assists only prior to or following the activity. 4-Supervision or Touching Assistance-helper provides verbal cues and/or touching/steadying and/or contact guard assistance as patient completes activ ity. Assistance may be provided throughout the activity or intermittently. 3-Partial/Moderate Assistance-helper does LESS THAN HALF the effort. [place] lifts, holds or supports trunk or limbs, but provides less than half the effort. 2-Substantial/Maximal Assistance-helper does MORE THAN HALF the effort. [place] lifts or holds trunk or limbs and provides more than half the effort. 1-Akjktqjdn-kaziwv does ALL the effort. Patient does none of the effort to complete the activity. Or, the assistance of 2 or more helpers is required for the patient to complete the activity. If activity was not attempted, code reason: 7-Patient Refused. 9-Not Applicable-not attempted and the patient did not perform the activity before the current illness, exacerbation or injury. 10-Not Attempted due to Environmental Limitations-(lack of equipment, weather restraints, etc.). 88-Not Attempted due to Medical Conditions or Safety Concerns. Roll Left & Right (QC): 6 Sit to Lying (QC): 6 Lying to Sitting/Side of Bed(Q: 6 Sit to Stand (QC): 4 Chair/Zec-uf-Mzglu Xfer(QC): 5 Toilet Transfer (QC): 5 Car Transfer (QC): 5 Gait Training Walk 10 feet (QC): 9 Walk 50 ft with 2 Turns(QC): 9 Walk 150 ft (QC): 9 Walking 10ft/uneven surface-QC: 9 Wheelchair Training Wheel 50 ft with 2 turns (QC): 6 Wheel 150 ft (QC): 6 Stair Training 1 Step (curb) (QC): 9 4 Steps (QC): 9 12 Steps (QC): 9 Balance Picking up an Object (QC): 9 Treatments bed mobility and transfers, WC mobility Assessment Current Status: Fair Progress Patient stands in the parallel bars, one hand on bar and one hand on WC. PT Chairperson Anesthesiology Goals Skilled Nursing Goals PT Skilled Nursing Goals Time Frame: Jun 30, 2022 Roll Left & Right (QC): 6 Sit to Lying (QC): 6 Lying-Sitting on Side/Bed(QC): 6 Sit to Stand (QC): 4 (CGA) Chair/Omx-ux-Dbgoc Xfer(QC): 4 (CGA) Toilet Transfer (QC): 4 (CGA) Car Transfer (QC): 4 (CGA) Does the Patient Walk: No and Walking Goal NOT indicated Walk 10 feet (QC): 9 Walk 50ft with 2 Turns (QC): 9 Walk 150 ft (QC): 9 Walking 10ft on Uneven Surface: 9 1 Step (curb) (QC): 9 4 Steps (QC): 9 12 Steps (QC): 9 Picking up an Object (QC): 9 Wheel 50 feet with 2 turns (QC: 6 Wheel 150 feet: 6 PT Plan Problem List Problem List: Activity Tolerance, Functional Strength, Safety, Balance, Transfer, Bed Mobility, ROM Treatment/Plan Treatment Plan: Discontinue PT (DC today) Treatment Plan: Bed Mobility, Education, Functional Activity Lizeth, Functional Strength, Group Therapy, Safety, Therapeutic Exercise, Transfers Treatment Duration: Jun 30, 2022 Frequency: At least 5 of 7 days/Wk (IRF) Estimated Hrs Per Day: 1.5 hours per day Patient and/or Family Agrees t: Yes Safety Risks/Education Patient Education: Transfer Techniques, Correct Positioning, W/C Management, Safety Issues Teaching Recipient: Patient Teaching Methods: Demonstration, Discussion Response to Teaching: Reinforcement Needed Time Time In: 0900 Time Out: 914 DATE: Jun 29, 2022 Total Billed Treatment Time: 15 Total Billed Treatment 1 visit FA [id number] PELLETIER PT Jun 29, 2022 09:15
--- NOTE | 2022-06-29 09:20 | Therapy Team Discharge Summary ---
Therapy Discharge Summary Discharge Recommendations Date of Discharge Physical Therapy Patient came to rehab with debility. Upon evaluation patient performs rolling with SBA, sit to supine min assist, supine to sit SBA, sit <-> stand max assist, transfers max assist, car transfer max assist, and propelled a manual WC 200' with independence. Patient has been performing bed mobility and transfer training, balance and endurance training, functional strengthening, and education. Patient has made fair progress and has met all of his mcfp goals. Now, patient performs rolling and supine <-> sit with independence, sit <-> stand with SBA in the parallel bars transfers with setup, car transfer setup, and propels a manual WC with independence. Patient is being discharged from this facility today and will be discharged from PT at this time. Roll Left to Right (QC): 6 Sit to Lying (QC): 6 Lying to Sitting/Side of Bed(Q: 6 Sit to Stand (QC): 4 Chair/Cna-jv-Ozuvk Xfer(QC): 5 Toilet Transfer (QC): 5 Car Transfer (QC): 5 Does the Patient Walk: Yes Mode of Locomotion: Wheelchair Anticipated Mode of Locomotion: Wheelchair Walk 10 feet (QC): 9 Walk 50 ft with 2 Turns(QC): 9 Walk 150 ft (QC): 9 Walking 10ft on uneven surface: 9 Gait Assistive Device: FWW Does the Pt Use a Wheelchair: Yes Wheelchair Distance: 200'x2 Wheel 50 ft with 2 turns (QC): 6 Wheel 150 ft (QC): 6 Type of Wheelchair: Manual 1 Step (curb) (QC): 9 4 Steps (QC): 9 12 Steps (QC): 9 Balance Sitting Static: Fair Balance Sitting Dynamic: Fair Balance-Standing Static: Poor Picking up an Object (QC): 9 Occupational Therapy Decreased Activ Tolerance, Impaired Self-Care Skills Eating (QC): 5 (Pt is able to open most items though if small tight lid pt will require assistance. Pt eats with regular utensils.) Oral Hygiene (QC): 6 (Sitting at sink, pt completes oral care independently.) Shower/Bathe Self (QC): 6 (Sitting 100% of the time, pt able to complete shower using HH shower, grabbars and shower bench.) Upper Body Dressing (QC): 6 (Retrieves clothing at w/c level then independent with dressing.) Lower Body Dressing (QC): 6 (Retreives clothing at w/c level then completes in sitting independently.) On/Off Footwear (QC): 6 (Retrieves at w/c level and completes in sitting independently.) Toileting Hygiene (QC): 6 (Straight caths self independently and places Condom catheter independently. 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 PT [facility] Goals Time Frame: Jun 30, 2022 Roll Left to Right (QC): 6 Sit to Lying (QC): 6 Lying-Sitting on Side/Bed(QC): 6 Sit to Stand (QC): 4 (CGA) Chair/Fwr-ya-Ffjku Xfer(QC): 4 (CGA) Toilet/Commode Transfer (QC): 4 (CGA) Car Transfer (QC): 4 (CGA) Does the Patient Walk: No and Walking Goal NOT indicated Walk 10 feet (QC): 9 Walk 10ft-Uneven Surface(QC): 9 Walk 50ft with 2 Turns (QC): 9 Walk 150 ft (QC): 9 Wheel 50 feet with 2 turns (QC: 6 Wheel 150 feet: 6 1 Step (curb) (QC): 9 4 Steps (QC): 9 12 Steps (QC): 9 Picking up an Object (QC): 9 OT [facility] Goals [facility] Goals Time Frame: Jul 10, 2022 Acute change in mental status: 0 Inattention: 0 Disorganized thinkin Altered level of consciousness: 0 Eating (QC): 6 (not met) Oral Hygiene (QC): 6 (met) Toileting Hygiene (QC): 6 (met) Shower/Bathe Self (QC): 6 (met) Upper Body Dressing (QC): 6 (met) Lower Body Dressing (QC): 6 (met) On/Off Footwear (QC): 6 (met) Additional Goals: 1-Demonstrate ADL Tasks, 2-Verbalize Understanding, 3-ImproveStrength/Lizeth 1=Demonstrate adherence to instructed precautions during ADL tasks. 2=Patient will verbalize/demonstrate understanding of assistive devices/modifications for ADL. 3=Patient will improve strength/tolerance for activity to enable patient to per form ADL's. EDGAR REYNOLDS PT Jun 29, 2022 09:20
[2022-06-29 10:05] VITALS: BP 98/56
--- NOTE | 2022-06-29 13:17 | Therapy Team Discharge Summary ---
Therapy Discharge Summary Discharge Recommendations Date of Discharge Jun 29, 2022 at 10:05 Physical Therapy Roll Left to Right (QC): 6 Sit to Lying (QC): 6 Lying to Sitting/Side of Bed(Q: 6 Sit to Stand (QC): 4 Chair/Cfm-jm-Dryjp Xfer(QC): 5 Toilet Transfer (QC): 5 Car Transfer (QC): 5 Does the Patient Walk: Yes Mode of Locomotion: Wheelchair Anticipated Mode of Locomotion: Wheelchair Walk 10 feet (QC): 9 Walk 50 ft with 2 Turns(QC): 9 Walk 150 ft (QC): 9 Walking 10ft on uneven surface: 9 Gait Assistive Device: FWW Does the Pt Use a Wheelchair: Yes Wheelchair Distance: 200'x2 Wheel 50 ft with 2 turns (QC): 6 Wheel 150 ft (QC): 6 Type of Wheelchair: Manual 1 Step (curb) (QC): 9 4 Steps (QC): 9 12 Steps (QC): 9 Balance Sitting Static: Fair Balance Sitting Dynamic: Fair Balance-Standing Static: Poor Picking up an Object (QC): 9 Occupational Therapy Pt admitted to [facility]U with debility. At OF, pt was independent with ADLS and functional mobility at w/c level, and SPTs. Upon initial evaluation, pt was independent with oral care, required set up with eating, total assist LE Dressing, min A footwear and max A toileting. OT tx focused on increasing BUE strength and activity tolerance and increasing safety and independence with ADLs and functional mobility. Pt made good progress towards goals, attaining all LTGs except eating. Pt discharged home, d/c from OT. Decreased Activ Tolerance, Impaired Self-Care Skills Eating (QC): 5 (Pt is able to open most items though if small tight lid pt will require assistance. Pt eats with regular utensils.) Oral Hygiene (QC): 6 (Sitting at sink, pt completes oral care independently.) Shower/Bathe Self (QC): 6 (Sitting 100% of the time, pt able to complete shower using HH shower, grabbars and shower bench.) Upper Body Dressing (QC): 6 (Retrieves clothing at w/c level then independent with dressing.) Lower Body Dressing (QC): 6 (Retreives clothing at w/c level then completes in sitting independently.) On/Off Footwear (QC): 6 (Retrieves at w/c level and completes in sitting independently.) Toileting Hygiene (QC): 6 (Straight caths self independently and places Condom catheter independently. 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: Jun 30, 2022 Roll Left to Right (QC): 6 Sit to Lying (QC): 6 Lying-Sitting on Side/Bed(QC): 6 Sit to Stand (QC): 4 (CGA) Chair/Akb-vl-Bcusp Xfer(QC): 4 (CGA) Toilet/Commode Transfer (QC): 4 (CGA) Car Transfer (QC): 4 (CGA) Does the Patient Walk: No and Walking Goal NOT indicated Walk 10 feet (QC): 9 Walk 10ft-Uneven Surface(QC): 9 Walk 50ft with 2 Turns (QC): 9 Walk 150 ft (QC): 9 Wheel 50 feet with 2 turns (QC: 6 Wheel 150 feet: 6 1 Step (curb) (QC): 9 4 Steps (QC): 9 12 Steps (QC): 9 Picking up an Object (QC): 9 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 2=Patient will verbalize/demonstrate understanding of assistive devices/modifications for ADL. 3=Patient will improve strength/tolerance for activity to enable patient to perform ADL's. ANGELICA BELCHER OT Jun 29, 2022 13:17
== END 2022-06-29 10:05 | disposition home health service (06) | DRG 947 ==
PROVIDERS: ADMIT Internal Medicine; ATTEND Internal Medicine
DX: R53.81 Other malaise (principal); G82.50 Quadriplegia, unspecified; I33.9 Acute and subacute endocarditis, unspecified; C64.1 Malignant neoplasm of right kidney, except renal pelvis; Z68.1 Body mass index [BMI] 19.9 or less, adult; R53.1 Weakness; T45.1X5D Adverse effect of antineoplastic and immunosuppressive drugs, subsequent encounter; N32.81 Overactive bladder; Z66 Do not resuscitate; R33.9 Retention of urine, unspecified; N31.9 Neuromuscular dysfunction of bladder, unspecified; N18.9 Chronic kidney disease, unspecified; D64.9 Anemia, unspecified; I95.9 Hypotension, unspecified; F41.9 Anxiety disorder, unspecified; F32.A Depression, unspecified; S14.103S Unspecified injury at C3 level of cervical spinal cord, sequela; R63.4 Abnormal weight loss; Z87.891 Personal history of nicotine dependence; Z79.899 Other long term (current) drug therapy; Z88.0 Allergy status to penicillin
CPT/HCPCS: 36415; 71045; 80053; 81000; 83605; 85025; 87088